=== PATIENT | male | born 1955 | race Caucasian/White ===

== ENCOUNTER 2019-05-27 15:01 | Inpatient (IN) | payer MEDICARE, MEDICAID ==
[~2019-05-27] VITALS: Ht 182.9 cm; Wt 113.2 kg
[2019-05-27] MEDS ORDERED: ASPIRIN 81 MG TAB.CHEW PO ONE (15:30)
[2019-05-27] MEDS: MORPHINE SULFATE 4 MG/ML DISP.SYRIN. IV/SQ PRN ×3 (15:40→22:16)
[2019-05-27 15:50] LABS: BASO % 1 % (0-3); EOS # 0.1 x10^3/uL (0.0-0.7); EOS % 1 % (0-3); HEMATOCRIT 37.9 % (39.0-53.0); HEMOGLOBIN 12.9 g/dL (13.0-17.5); LYMPH # 0.8 x10^3/uL (1.0-4.8); LYMPH % 13 % (24-48); MEAN CORPUSCULAR HEMOGLOBIN 33 pg (25-35); MEAN CORPUSCULAR HGB CONC 34 g/dL (31-37); MEAN CORPUSCULAR VOLUME 98 fL (79-100); MONO # 0.7 x10^3/uL (0.0-1.1); MONO % 10 % (0-9); NEUT # 4.9 x10^3uL (1.8-7.7); NEUT % 76 % (31-73); PLATELET COUNT 150 x10^3/uL (140-400); RED BLOOD COUNT 3.88 x10^6/uL (4.30-5.70); RED CELL DISTRIBUTION WIDTH 15.9 % (11.5-14.5); WHITE BLOOD COUNT 6.4 x10^3/uL (4.0-11.0)
[2019-05-27 15:51] LABS: CALCIUM 8.9 mg/dL (8.5-10.1); CREATININE 1.4 mg/dL (0.7-1.3); GFR 50.7; POTASSIUM 4.2 mmol/L (3.5-5.1)
--- NOTE | 2019-05-27 15:51 | PHYS DOC ---
Past History Past Medical History: CAD, COPD, Diabetes, Hypertension, Other Additional Past Medical Histor: dermatitis (RADHA SANON Jr., DO) Past Medical History: CHF (AMBER JACOBSON MD) Past Surgical History: Coronary Bypass Surgery, Other Additional Past Surgical Histo: cardiac stents; lower back l4-l5; debrided back; partial thyroidectomy (RADHA SANON Jr., DO) Alcohol Use: None Drug Use: None (RADHA SANON Jr., DO) Adult General Chief Complaint Chief Complaint: COUGH HPI HPI Patient is a 64-year-old male who presents with complaint of chest discomfort along with cough and shortness of breath for the last few days. Patient indicates that pain in his chest is like a pressure and he rates that discomfort at an 8 out of 10. He denies any nausea, vomiting or diaphoresis. Patient does indicate that he also has dyspnea on exertion. He states that nothing is improving his symptoms.[] (RADHA SANON Jr., DO) Review of Systems Review of Systems Constitutional: Denies fever or chills [] Respiratory: Positive cough and shortness of breath [] Cardiovascular: No additional information not addressed in HPI [] GI: Denies abdominal pain, nausea, vomiting or diarrhea [] Integument: Denies rash or skin lesions [] Neurologic: Denies headache, focal weakness or sensory changes [] All other systems were reviewed and found to be within normal limits, except as documented in this note. (RADHA SANON Jr., DO) Current Medications Current Medications Current Medications Medications (Trade) Dose Ordered Sig/Levon Start Time Stop Time Status Last Admin Dose Admin Aspirin (Children'S Aspirin) 324 mg 1X ONCE 05/27/19 15:30 05/27/19 15:32 DC 05/27/19 15:39 324 MG Morphine Sulfate (Morphine 4mg Syringe) 4 mg PRN Q15MIN PRN 05/27/19 15:30 05/28/19 15:29 05/27/19 15:40 4 MG (RADHA SANON Jr., DO) Allergies Allergies Allergies Coded Allergies Type Severity Reaction Last Updated Verified levofloxacin Allergy Unknown Rash 05/27/19 Yes niacin Allergy Unknown 05/27/19 Yes (RADHA SANON Jr., DO) Physical Exam Physical Exam Constitutional: Well developed, well nourished, no acute distress, non-toxic appearance. [] HENT: Normocephalic, atraumatic, bilateral external ears normal, oropharynx moist, no oral exudates, nose normal. [] Eyes: PERRLA, EOMI, conjunctiva normal, no discharge. [] Neck: Normal range of motion, no tenderness, supple, no stridor. [] Cardiovascular: Regular rate and rhythm[] Lungs & Thorax: Fine rhonchi are noted bilaterally to auscultation [] Abdomen: Bowel sounds normal, soft, no tenderness. [] Skin: Warm, dry, no erythema, no rash. [] Extremities: No tenderness, no cyanosis, no clubbing, ROM intact, with 2+ lower extremity edema. [] Neurologic: Alert and oriented X 3, no focal deficits noted. [] (RADHA SANON Jr., DO) Current Patient Data Vital Signs Vital Signs Date Time Temp Pulse Resp B/P (MAP) Pulse Ox O2 Delivery O2 Flow Rate FiO2 05/27/19 15:40 40 98 Room Air 05/27/19 15:15 98.6 124 (RADHA SANON Jr., DO) EKG EKG [] (RADHA SANON Jr., DO) EKG My interpretation EKG shows a sinus tachycardia and 12 4 bpm. Does have some nonspecific inferior lead changes. Occasional multifocal also focal PVCs (AMBER JACOBSON MD) Radiology/Procedures Radiology/Procedures [] Impressions: PROCEDURE: CHEST PA & LATERAL AP and Lateral Views of the Chest 05/27/2019 3:19 PM Indication: Cough, chest pain Comparison: None Findings: There is no focal consolidation or infiltrate identified. Mild cardiomegaly noted. Dual lead pacemaking/icd device from a left subclavian approach. There is no evidence of pneumothorax or pleural effusion. No acute osseous abnormalities are identified. Impression: No evidence of acute cardiopulmonary process. Electronically signed by: Hermes Meneses MD (05/27/2019 3:57 PM) [facility] (RADHA SANON Jr., DO) Course & Med Decision Making Course & Med Decision Making Pertinent Labs and Imaging studies reviewed. (See chart for details) [] (RADHA SANON Jr., DO) Course & Med Decision Making [address] [address] IMAGING REPORT Signed PATIENT: MELISSA DIAZ ACCOUNT: [id number] : 1955 LOCATION: ER AGE: 64 SEX: M EXAM STATUS: REG ER ORD. PHYSICIAN: RADHA SANON Jr., DO REASON: cough and chest pain PROCEDURE: CHEST PA & LATERAL AP and Lateral Views of the Chest 05/27/2019 3:19 PM Indication: Cough, chest pain Comparison: None Findings: There is no focal consolidation or infiltrate identified. Mild cardiomegaly noted. Dual lead pacemaking/icd device from a left subclavian approach. There is no evidence of pneumothorax or pleural effusion. No acute osseous abnormalities are identified. Impression: No evidence of acute cardiopulmonary process. Electronically signed by: Hermes Meneses MD (05/27/2019 3:57 PM) [facility] DICTATED AND SIGNED BY: HERMES MENESES MD DATE: 05/27/19 1557 CC: RADHA SANON Jr., DO; MELISSA HART PAC ~ See Dr. Sanon note for this pt. Request by Nursing need rate control and BP. Repeat EKG shows a sinus rhythm at approximately 24 bpm. Flow limb of old age. Some nonspecific inferior changes. Occasional multifocal PVCs. No findings acute STEMI of contralateral changes overall morphology similar to prior EKG however patient did remove his EKG stickers so there may be some difference and placement of stickers or EKG leads. Will Continue Lasix additional 40 mg and one dosage of Labetalol 10. Repeat Electrolytes and Trop. Impression: 1. Hx. Cough 2. CHF-diastolic dysfunction 3. Anemia 12.9 4. DM Glu. 1387 5. Mild elevation Creat. 1.4 6. BNP 5462 7. Malnutrition Alb. 3/.0 8. Accelerated HTN 9. Tachycardia 10. Multifocal PVCs (AMBER JACOBSON MD) Dragon Disclaimer Dragon Disclaimer This electronic medical record was generated, in whole or in part, using a voice recognition dictation system. (RADHA SANON Jr., DO) Departure Departure: Impression: Primary Impression: Chest pain Additional Impression: CHF (congestive heart failure) Disposition: ADMITTED INPATIENT Admitting Physician: Martin Maldonado (RADHA SANON Jr., DO) Condition: IMPROVED Referrals: MELISSA HART PAC (PCP) Dragon Disclaimer This chart was dictated in whole or in part using Voice Recognition software in a busy, high-work load, and often noisy Emergency Department environment. It may contain unintended and wholly unrecognized errors or omissions. (AMBER JACOBSON MD) Problem Qualifiers Primary Impression: Chest pain Chest pain type: unspecified Qualified Codes: R07.9 - Chest pain, unspecified Additional Impression: CHF (congestive heart failure) Heart failure type: unspecified Heart failure chronicity: unspecified Qualified Codes: I50.9 - Heart failure, unspecified RADHA SANON Jr. DO May 27, 2019 15:51 AMBER JACOBSON MD May 27, 2019 23:59
--- NOTE | 2019-05-27 16:00 | RAD ---
AP and Lateral Views of the Chest 05/27/2019 3:19 PM Indication: Cough, chest pain Comparison: None Findings: There is no focal consolidation or infiltrate identified. Mild cardiomegaly noted. Dual lead pacemaking/icd device from a left subclavian approach. There is no evidence of pneumothorax or pleural effusion. No acute osseous abnormalities are identified. Impression: No evidence of acute cardiopulmonary process. Electronically signed by: Hermes Gaona MD (05/27/2019 3:57 PM) [facility]
[2019-05-27 16:03] LABS: ALBUMIN/GLOBULIN RATIO 0.8 (1.0-1.7); TOTAL BILIRUBIN 0.5 mg/dL (0.2-1.0); TOTAL PROTEIN 6.9 g/dL (6.4-8.2)
[2019-05-27] MEDS ORDERED: FUROSEMIDE 40 MG/4 ML VIAL IVP ONE (16:15)
[2019-05-27] MEDS ORDERED: ONDANSETRON PF 4 MG/2 ML VIAL. IV PRN (17:45)
[2019-05-27] MEDS: MORPHINE SULFATE 4 MG/ML DISP.SYRIN. IV PRN (18:05)
[2019-05-28] MEDS ORDERED: FUROSEMIDE 40 MG/4 ML VIAL IVP ONE (00:30)
[2019-05-28] MEDS ORDERED: LABETALOL 20 MG/4 ML DISP.SYRIN. IVP ONE (00:30)
[2019-05-28 00:38] LABS: CALCIUM 7.2 mg/dL (8.5-10.1); CREATININE 1.2 mg/dL (0.7-1.3); GFR 60.6; POTASSIUM 3.1 mmol/L (3.5-5.1)
[2019-05-28 01:28] VITALS: BP 130/80
[2019-05-28] MEDS ORDERED: RANO10002 PO (03:18)
[2019-05-28] MEDS ORDERED: DABI150C PO (03:18)
[2019-05-28] MEDS ORDERED: EMPA10TA PO (03:18)
[2019-05-28] MEDS ORDERED: BUME1TAB3 PO (03:18)
[2019-05-28] MEDS ORDERED: MONT10TA80 PO (03:18)
[2019-05-28] MEDS ORDERED: AMIO200T4 PO (03:18)
[2019-05-28] MEDS ORDERED: LEVO300T2 PO (03:18)
[2019-05-28] MEDS ORDERED: INSU100I13 SQ (03:18)
[2019-05-28] MEDS ORDERED: BUME2TAB3 PO (03:18)
[2019-05-28] MEDS ORDERED: FLUT1BLS3 IH (03:18)
[2019-05-28] MEDS ORDERED: CLOP75TA57 PO (03:18)
[2019-05-28] MEDS ORDERED: ALBU0.63 NEB (03:18)
[2019-05-28] MEDS ORDERED: RANI-376 PO (03:18)
[2019-05-28] MEDS ORDERED: FERR325T14 PO (03:18)
[2019-05-28] MEDS ORDERED: ESCITALOPRAM OX10 MG PO (03:18)
[2019-05-28] MEDS ORDERED: CARV12.5 PO (03:18)
[2019-05-28] MEDS ORDERED: LIPITOR80 MG PO (03:18)
[2019-05-28] MEDS ORDERED: PANT40TA3 PO (03:18)
[2019-05-28] MEDS ORDERED: CYAN500T17 PO (03:18)
[2019-05-28] MEDS ORDERED: INSU100C SQ (03:18)
[2019-05-28] MEDS ORDERED: OXYC5CAP PO (03:18)
[2019-05-28] MEDS ORDERED: HYDR4TAB45 PO (03:18)
[2019-05-28] MEDS ORDERED: ISOS60TA2 PO (03:18)
--- NOTE | 2019-05-28 03:36 | NUR ---
PT presented with a cough and SOB for 3 days, chest pain/pressure for 2 days. PT admitted for CHF. PT oriented to unit. PT safely transported to unit via EMS, transferred to bed safely. Reviewed PT's PMH, PSH, FH, SH and medications ( called in while assessing PT and informed narrative writer of current medications/doses).
[2019-05-28] MEDS: MORPHINE SULFATE 4 MG/ML DISP.SYRIN. IV PRN ×2 (03:51→14:36)
--- NOTE | 2019-05-28 04:31 | NUR ---
PT expressed his wish to be DNR status. Second nurse verified (Stefani Stein, RN). While speaking with about medications, verified DNR status. She said she would bring in the paperwork in AM.
[2019-05-28 05:43] VITALS: BP 109/72
--- NOTE | 2019-05-28 05:46 | EKG ---
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
--- NOTE | 2019-05-28 05:54 | EKG ---
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
[2019-05-28 07:15] LABS: BASO % 1 % (0-3); EOS % 1 % (0-3); HEMATOCRIT 36.9 % (39.0-53.0); HEMOGLOBIN 12.4 g/dL (13.0-17.5); LYMPH # 1.1 x10^3/uL (1.0-4.8); LYMPH % 19 % (24-48); MEAN CORPUSCULAR HEMOGLOBIN 33 pg (25-35); MEAN CORPUSCULAR HGB CONC 34 g/dL (31-37); MEAN CORPUSCULAR VOLUME 97 fL (79-100); MONO # 0.6 x10^3/uL (0.0-1.1); MONO % 10 % (0-9); NEUT % 69 % (31-73); PLATELET COUNT 142 x10^3/uL (140-400); RED BLOOD COUNT 3.79 x10^6/uL (4.30-5.70); RED CELL DISTRIBUTION WIDTH 15.9 % (11.5-14.5); WHITE BLOOD COUNT 5.7 x10^3/uL (4.0-11.0)
[2019-05-28 07:31] LABS: CALCIUM 8.4 mg/dL (8.5-10.1); CREATININE 1.5 mg/dL (0.7-1.3); GFR 46.8; POTASSIUM 3.6 mmol/L (3.5-5.1)
[2019-05-28] MEDS ORDERED: NON FORMULARY ITEM (Albuterol Sulfate (Albuterol Sulfate Neb Soln) 1 VIAL) NEB PRN (07:45)
[2019-05-28] MEDS ORDERED: ALBUTEROL SULFATE 2.5 MG/3 ML NEBU. NEB PRN (08:45)
[2019-05-28] MEDS: CYANOCOBALAMIN (VITAMIN B-12) 1,000 MCG TABLET. PO SCH (09:00)
[2019-05-28] MEDS: RANOLAZINE 500 MG TAB.ER.12H PO SCH ×2 (09:00→20:25)
[2019-05-28] MEDS: FERROUS SULFATE 325 MG TABLET. PO SCH (09:00)
[2019-05-28] MEDS: NON FORMULARY ITEM (Empagliflozin (Jardiance) 10 MG) PO SCH (09:00)
[2019-05-28] MEDS: FAMOTIDINE 20 MG TABLET PO SCH (09:01)
[2019-05-28] MEDS: PANTOPRAZOLE 40 MG TABLET. PO SCH (09:01)
[2019-05-28] MEDS: ISOSORBIDE MONONITRATE ER 30 MG TAB.ER.24H PO SCH (09:01)
[2019-05-28] MEDS: BUMETANIDE 1 MG TABLET PO SCH ×2 (09:01→12:22)
[2019-05-28] MEDS: CARVEDILOL 12.5 MG TABLET PO SCH ×2 (09:02→17:20)
[2019-05-28] MEDS: CLOPIDOGREL BISULFATE 75 MG TABLET PO SCH (09:02)
[2019-05-28] MEDS: CITALOPRAM 20 MG TABLET. PO SCH (09:02)
[2019-05-28] MEDS: DABIGATRAN ETEXILATE 150 MG CAPSULE. PO SCH ×2 (09:03→20:25)
[2019-05-28] MEDS: AMIODARONE HCL 200 MG TABLET PO SCH (09:03)
[2019-05-28] MEDS: oxyCODONE IR 5 MG TABLET PO SCH ×2 (09:03→20:26)
[2019-05-28 10:52] LABS: INFLUENZA A PATIENT NEGATIVE (NEGATIVE); INFLUENZA B PATIENT NEGATIVE (NEGATIVE)
[2019-05-28 11:09] VITALS: BP 100/65
[2019-05-28] MEDS: INSULIN LISPRO 300 UNITS/3 ML VIAL. SQ SCH ×2 (12:24→17:23)
[2019-05-28 15:39] VITALS: BP 101/66
[2019-05-28] MEDS ORDERED: ACETAMINOPHEN 325 MG TABLET PO PRN (17:45)
--- NOTE | 2019-05-28 18:19 | PDOC2 ---
CARDIAC CONSULT DATE OF CONSULT Date Of Consult DATE: 05/28/19 TIME: 18:12 REASON FOR CONSULT Reason for Consult Heart failure, chest pain REFERRING PHYSICIAN Referring Physician Dr. Maldonado SOURCE Source: Chart review, Patient HPI History of Present Illness The patient is a 64-year-old male who is admitted through the emergency room with 3-4 days of increasing shortness of breath, cough and chest pressure. He was treated with diuresis and is mildly improved. Initial troponin was normal at 0.017. Creatinine of 1.5. EKG showed a sinus tachycardia with no acute ST segment changes. Chest x-ray showed no acute changes. Patient blood pressure is still elevated but has improved. The patient reports a long history of multiple cardiac issues including a previous bypass surgery and subsequent stenting, an ICD, hypertension and diabetes mellitus. He is from the [facility] and reports several prolonged hospitalizations there in the last 1-2 years. In his room today he as noted above is feeling better. Reports some shortness of breath. He reports some mild chest pressure. PAST MEDICAL HISTORY Cardiovascular: CAD, CHF, HTN, hyperipidemia Pulmonary: COPD GI: GERD Endocrine: Diabetes PAST SURGICAL HISTORY Past Surgical History: CABG, Other (multiple coronary stents and an ICD.) FAMILY HISTORY Family History: Heart Disease SOCIAL HISTORY Smoke: No ALCOHOL: none CURRENT MEDICATIONS Current Medications Current Medications Aspirin (Children'S Aspirin) 324 mg 1X ONCE PO Last administered on 05/27/19at 15:39; Start 05/27/19 at 15:30; Stop 05/27/19 at 15:32; Status DC Morphine Sulfate (Morphine 4mg Syringe) 4 mg PRN Q15MIN PRN IV/SQ PAIN GREATER THAN 3/10 Last administered on 05/27/19at 22:16; Start 05/27/19 at 15:30; Stop 05/28/19 at 14:47; Status DC Furosemide (Lasix) 60 mg 1X ONCE IVP Last administered on 05/27/19at 16:26; Start 05/27/19 at 16:15; Stop 05/27/19 at 16:16; Status DC Ondansetron HCl (Zofran) 4 mg PRN Q4HRS PRN IV NAUSEA/VOMITING Last administered on 05/28/19at 09:04; Start 05/27/19 at 17:45; Stop 05/28/19 at 17:44; Status DC Morphine Sulfate (Morphine 4mg Syringe) 4 mg PRN Q2HR PRN IV PAIN Last administered on 05/28/19at 14:36; Start 05/27/19 at 17:45; Stop 05/28/19 at 17:44; Status DC Furosemide (Lasix) 40 mg 1X ONCE IVP ; Start 05/28/19 at 00:30; Stop 05/28/19 at 00:31; Status DC Labetalol HCl (Normodyne) 10 mg 1X ONCE IVP ; Start 05/28/19 at 00:30; Stop 05/28/19 at 00:31; Status DC Amiodarone HCl (Cordarone) 200 mg DAILY PO Last administered on 05/28/19at 09:03; Start 05/28/19 at 09:00 Clopidogrel Bisulfate (Plavix) 75 mg DAILY PO Last administered on 05/28/19at 09:02; Start 05/28/19 at 09:00 Dabigatran (Pradaxa) 150 mg BID PO Last administered on 05/28/19at 09:03; Start 05/28/19 at 09:00 Ferrous Sulfate (Feosol) 325 mg DAILY PO Last administered on 05/28/19at 09:00; Start 05/28/19 at 09:00 Non-Formulary Medication (Albuterol Sulfate (Albuterol Sulfate Neb Soln)) 1 vial QID PRN NEB SHORTNESS OF BREATH; Start 05/28/19 at 07:45; Status UNV Atorvastatin Calcium (Lipitor) 80 mg QHS PO ; Start 05/28/19 at 21:00 Ranolazine (Ranexa) 1,000 mg BID PO Last administered on 05/28/19at 09:00; Start 05/28/19 at 09:00 Bumetanide (Bumex) 1 mg NOON PO Last administered on 05/28/19at 12:22; Start 05/28/19 at 12:00 Carvedilol (Coreg) 12.5 mg BIDWMEALS PO Last administered on 05/28/19at 17:20; Start 05/28/19 at 08:30 Montelukast Sodium (Singulair) 10 mg HS PO ; Start 05/28/19 at 21:00 Pantoprazole Sodium (Protonix) 40 mg DAILY PO Last administered on 05/28/19at 09:01; Start 05/28/19 at 09:00 Bumetanide (Bumex) 2 mg DAILY PO Last administered on 05/28/19at 09:01; Start 05/28/19 at 09:00 Cyanocobalamin (Vitamin B-12) 2,500 mcg DAILY PO Last administered on 05/28/19at 09:00; Start 05/28/19 at 09:00 Non-Formulary Medication (Empagliflozin (Jardiance)) 10 mg DAILY PO ; Start 05/28/19 at 09:00; Status UNV Citalopram Hydrobromide (CeleXA) 20 mg DAILY PO Last administered on 05/28/19at 09:02; Start 05/28/19 at 09:00 Hydromorphone HCl (Dilaudid) 4 mg PRN QID PRN PO PAIN; Start 05/28/19 at 08:45 Insulin Glargine (Lantus Syringe) 14 unit QHS SQ ; Start 05/28/19 at 21:00 Insulin Human Lispro (HumaLOG) 3 units TIDWMEALS SQ Last administered on 05/28/19at 17:23; Start 05/28/19 at 12:00 Isosorbide Mononitrate (Imdur) 60 mg DAILY PO Last administered on 05/28/19at 09:01; Start 05/28/19 at 09:00 Levothyroxine Sodium (Synthroid) 300 mcg DAILY06 PO ; Start 05/29/19 at 06:00 Oxycodone HCl (Roxicodone) 5 mg BID PO Last administered on 05/28/19at 09:03; Start 05/28/19 at 09:00 Famotidine (Pepcid) 40 mg DAILY PO Last administered on 05/28/19at 09:01; Start 05/28/19 at 09:00 Albuterol Sulfate (Ventolin) 2.5 mg PRN QID PRN NEB SHORTNESS OF BREATH; Start 05/28/19 at 08:45 Acetaminophen (Tylenol) 650 mg PRN TID PRN PO PAIN / TEMP Last administered on 05/28/19at 17:51; Start 05/28/19 at 17:45 Active Scripts Active Reported Dilaudid (Hydromorphone Hcl) 4 Mg Tablet 1 Tab PO PRN QID PRN MDD 4 Tablet(s) 30 Days Ranexa (Ranolazine) 1,000 Mg Tab.er.12h 1 Tab PO BID 30 Days Jardiance (Empagliflozin) 10 Mg Tablet 10 Mg PO DAILY Lantus Solostar (Insulin Glargine,Hum.rec.anlog) 100 Unit/1 Ml Insuln.pen 14 Unit SQ QHS Humalog (Insulin Lispro) 100 Unit/1 Ml Cartridge 3 Unit SQ TIDWMEALS Albuterol Sulfate Neb Soln (Albuterol Sulfate) 0.63 Mg/3 Ml Vial.neb 1 Vial NEB QID PRN Trelegy Ellipta 100-62.5-25 (Fluticasone/Umeclidin/Vilanter) 1 Each Blst.w.dev 1 Each IH DAILY B-12 (Cyanocobalamin (Vitamin B-12)) 500 Mcg Tablet 5 Tab PO DAILY 30 Days Synthroid (Levothyroxine Sodium) 300 Mcg Tablet 300 Mcg PO DAILY06 Escitalopram Oxalate 10 Mg Tablet 1 Tab PO DAILY Ferrous Sulfate 325 Mg Tablet 1 Tab PO DAILY Zantac (Ranitidine Hcl) 150 Mg Tablet 300 Mg PO DAILY Oxycodone Hcl 5 Mg Capsule 5 Mg PO BID Isosorbide Mononitrate Er (Isosorbide Mononitrate) 60 Mg Tab.er.24h 1 Tab PO DAILY Coreg (Carvedilol) 12.5 Mg Tablet 12.5 Mg PO BIDWMEALS Pradaxa (Dabigatran Etexilate Mesylate) 150 Mg Capsule 1 Cap PO BID Lipitor (Atorvastatin Calcium) 80 Mg Tablet 80 Mg PO QHS Amiodarone Hcl 200 Mg Tablet 1 Tab PO DAILY Montelukast Sodium Tablet (Montelukast Sodium) 10 Mg Tablet 10 Mg PO HS Plavix (Clopidogrel Bisulfate) 75 Mg Tablet 1 Tab PO DAILY 30 Days Bumetanide 2 Mg Tablet 1 Tab PO DAILY Bumetanide 1 Mg Tablet 1 Mg PO NOON Protonix (Pantoprazole Sodium) 40 Mg Tablet.dr 1 Tab PO DAILY ALLERGIES Allergies: Coded Allergies: levofloxacin (Verified Allergy, Unknown, Rash, 05/27/19) niacin (Verified Allergy, Unknown, 05/27/19) ROS General: YES: Fatigue Respiratory: YES: Shortness of breath, SOB with excertion Cardiovascular: yes: Chest Pain PHYSICAL EXAM General: mild distress HEENT: Atraumatic Lungs: Other (decreased breath sounds) Abdomen: Normal bowel sounds VITALS Vital Signs Vital Signs Date Time Temp Pulse Resp B/P (MAP) Pulse Ox O2 Delivery O2 Flow Rate FiO2 05/28/19 17:20 118 101/66 05/28/19 15:39 98.4 20 92 Room Air LABS LABS Laboratory Tests Test 05/27/19 15:30 05/27/19 23:49 05/28/19 06:35 05/28/19 07:46 White Blood Count 6.4 x10^3/uL (4.0-11.0) 5.7 x10^3/uL (4.0-11.0) Red Blood Count 3.88 x10^6/uL (4.30-5.70) 3.79 x10^6/uL (4.30-5.70) Hemoglobin 12.9 g/dL (13.0-17.5) 12.4 g/dL (13.0-17.5) Hematocrit 37.9 % (39.0-53.0) 36.9 % (39.0-53.0) Mean Corpuscular Volume 98 fL (79-100) 97 fL (79-100) Mean Corpuscular Hemoglobin 33 pg (25-35) 33 pg (25-35) Mean Corpuscular Hemoglobin Concent 34 g/dL (31-37) 34 g/dL (31-37) Red Cell Distribution Width 15.9 % (11.5-14.5) 15.9 % (11.5-14.5) Platelet Count 150 x10^3/uL (140-400) 142 x10^3/uL (140-400) Neutrophils (%) (Auto) 76 % (31-73) 69 % (31-73) Lymphocytes (%) (Auto) 13 % (24-48) 19 % (24-48) Monocytes (%) (Auto) 10 % (0-9) 10 % (0-9) Eosinophils (%) (Auto) 1 % (0-3) 1 % (0-3) Basophils (%) (Auto) 1 % (0-3) 1 % (0-3) Neutrophils # (Auto) 4.9 x10^3uL (1.8-7.7) 4.0 x10^3uL (1.8-7.7) Lymphocytes # (Auto) 0.8 x10^3/uL (1.0-4.8) 1.1 x10^3/uL (1.0-4.8) Monocytes # (Auto) 0.7 x10^3/uL (0.0-1.1) 0.6 x10^3/uL (0.0-1.1) Eosinophils # (Auto) 0.1 x10^3/uL (0.0-0.7) 0.0 x10^3/uL (0.0-0.7) Basophils # (Auto) 0.0 x10^3/uL (0.0-0.2) 0.0 x10^3/uL (0.0-0.2) Sodium Level 140 mmol/L (136-145) 144 mmol/L (136-145) 138 mmol/L (136-145) Potassium Level 4.2 mmol/L (3.5-5.1) 3.1 mmol/L (3.5-5.1) 3.6 mmol/L (3.5-5.1) Chloride Level 106 mmol/L (98-107) 111 mmol/L (98-107) 104 mmol/L (98-107) Carbon Dioxide Level 26 mmol/L (21-32) 22 mmol/L (21-32) 26 mmol/L (21-32) Anion Gap 8 (6-14) 11 (6-14) 8 (6-14) Blood Urea Nitrogen 18 mg/dL (8-26) 17 mg/dL (8-26) 18 mg/dL (8-26) Creatinine 1.4 mg/dL (0.7-1.3) 1.2 mg/dL (0.7-1.3) 1.5 mg/dL (0.7-1.3) Estimated GFR (Cockcroft-Gault) 50.7 60.6 46.8 BUN/Creatinine Ratio 13 (6-20) Glucose Level 137 mg/dL (70-99) 71 mg/dL (70-99) 88 mg/dL (70-99) Lactic Acid Level 1.0 mmol/L (0.4-2.0) Calcium Level 8.9 mg/dL (8.5-10.1) 7.2 mg/dL (8.5-10.1) 8.4 mg/dL (8.5-10.1) Magnesium Level 2.0 mg/dL (1.8-2.4) Total Bilirubin 0.5 mg/dL (0.2-1.0) Aspartate Amino Transf (AST/SGOT) 21 U/L (15-37) Alanine Aminotransferase (ALT/SGPT) 22 U/L (16-63) Alkaline Phosphatase 143 U/L (46-116) Troponin I Quantitative < 0.017 ng/mL (0-0.055) < 0.017 ng/mL (0-0.055) ER-Ebi-K-Type Natriuretic Peptide 5462 pg/mL (0-124) Total Protein 6.9 g/dL (6.4-8.2) Albumin 3.0 g/dL (3.4-5.0) Albumin/Globulin Ratio 0.8 (1.0-1.7) Lipase 127 U/L (73-393) Glucose (Fingerstick) 86 mg/dL (70-99) Test 05/28/19 10:20 Influenza Type A (Rapid) Negative (NEGATIVE) Influenza Type B (Rapid) Negative (NEGATIVE) IMAGES IMAGES Chest x-ray shows no acute changes. EKG EKG EKG shows a sinus tachycardia and no acute ischemic changes. HEART CATH Heart Cath 1. Acute on chronic heart failure. Probable systolic. We'll continue to diuresis with monitoring the patient's lab. We'll check an echocardiogram. We'll also attempt to obtain old records. 2. History of bypass surgery and multiple stenting. As noted above no acute ischemic EKG changes or elevated troponins. We'll continue baseline medications. 3. Reported AICD. 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 Patient has had no severe arrhythmias since admission. 4. Acute exacerbation of COPD. Continue pulmonary treatments. 5. Hypertension. We'll monitor and adjust medications as needed. 6. Uncertain lipid levels. We'll check a panel. 7. Diabetes mellitus. As per the primary service. Thank you for allowing us to participate in the care of your patient. DAY NEAL MD May 28, 2019 18:18
--- NOTE | 2019-05-28 18:42 | HP ---
ADMIT DATE: 05/28/2019 HISTORY OF PRESENT ILLNESS: The patient is a 64-year-old male patient who came to the Emergency Room complaining of shortness of breath, chest tightness, chest pressure, cough, wheezing, has been going on for the last 3 days. He also complained of shortness of breath. Denied any chest pain, denied any chills, rigors, or fever. Denied any orthopnea or paroxysmal nocturnal dyspnea. The cough is productive of clear sputum. He rated his discomfort as an 8/10. He denies any nausea, vomiting or diaphoresis. He also indicated that his dyspnea is aggravated by exertion. He apparently has inhalers at home, but he said that he does not use them as he should and unfortunately continued to smoke. He was extensively evaluated in the Emergency Room, and his white cell count was found to be normal. His chemistry showed that he has chronic kidney disease. Has also elevated beta natriuretic peptide at 5462. His influenza A and B were negative. His chest x-ray showed that there is no focal consolidation or infiltrate identified, mild cardiomegaly noted. He has dual lead pacemaker ICD device from a left subclavian approach. There is no evidence of pneumothorax, pleural effusion, no acute osseous abnormalities identified. First set of cardiac enzymes showed troponin to be less than 0.07. He was admitted to do 2 more sets of cardiac enzyme and was treated with Lasix and we will obviously consult the cardiology team, do 2 more sets of cardiac enzyme and check his fasting lipid profile. PAST MEDICAL HISTORY: Significant for type 2 diabetes mellitus, longstanding hypertension, hyperlipidemia, coronary artery disease, status myocardial disease, status post myocardial infarction in 2007, he underwent percutaneous coronary intervention with stent deployment x9. He has coronary artery bypass graft surgery. He had had cardiac arrest x 2. He apparently had left upper extremity compartment syndrome that required fasciotomy. Has a lung nodule that is followed closely, has had acute kidney injury twice, once with the compartment syndrome when he was in [place] and 2 months ago he was treated with IV fluid for acute kidney injury. Has benign prostatic hypertrophy by symptoms, TIA, chronic obstructive pulmonary disease, obstructive sleep apnea, on 2 liters of oxygen by nasal cannula. PAST SURGICAL HISTORY: Significant for PCI x 9, coronary artery bypass graft surgery, fasciotomy, L4-L5 laminectomy, he has also partial thyroidectomy. ALLERGIES: HE IS ALLERGIC TO LEVOFLOXACIN AND NIACIN. MEDICATIONS: He is currently on following medications: He is on albuterol sulfate 0.63 mg per 3 mL by nebulizer 4 times a day, ferrous sulfate 325 mg once a day, Pradaxa 150 mg twice a day, Plavix 75 mg once a day, amiodarone 200 mg once a day, Ranexa 1000 mg twice a day, atorvastatin calcium 80 mg at bedtime. He is on isosorbide mononitrate 60 mg daily, carvedilol 12.5 mg twice a day with meals, hydromorphone 4 mg 4 times a day as needed for pain. He is also on oxycodone 5 mg twice a day, escitalopram oxalate 10 mg daily, bumetanide 1 mg p.o. at noontime, bumetanide 2 mg daily. He is on Trelegy Ellipta 100/6.25/25 inhalers daily, montelukast sodium 10 mg at bedtime, ranitidine 150 mg daily, Protonix 40 mg daily. He is on Lantus insulin 14 units at bedtime and Humalog 3 units before meals. He is on Jardiance 10 mg daily, levothyroxine sodium 300 mcg once a day, and cyanocobalamin 500 mcg, he takes 5 tablets p.o. daily. FAMILY HISTORY: He has one sister who has coronary artery disease. His father in his 60s and mother also in her 60s due to congestive heart failure. SOCIAL HISTORY: He is , has 2 daughters alive, has one daughter when she was 4 months old, one son because of congenital heart disease at the age of 10 years and 1 son was electrocuted. He continue to smoke, does not drink alcohol drugs. 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 REVIEW OF SYSTEMS: The patient denied any blurring of vision, cataract, glaucoma or macular degeneration. Denied any earache, tinnitus or sensorineural deafness. Denied any nosebleeds, stuffy nose or postnasal drip. Denied any sore throat, sore tongue, toothache, hoarseness of voice or difficulty swallowing. Denied any dysuria, frequency or hematuria. Did complain of chest pressure, but denied any orthopnea or paroxysmal nocturnal dyspnea. Denied any chills, rigors or fever. Denied any dizziness, lightheadedness, or vertigo. PHYSICAL EXAMINATION: GENERAL: On arrival to the Emergency Room, he was clearly tachypneic, but there was no pallor, jaundice or cyanosis. No lymphadenopathy, no thyromegaly. No jugular venous distention. No limb edema. VITAL SIGNS: His heart rate on arrival was 124, respiratory rate was 40, blood pressure 140/86, temperature was 98.6, respiratory rate was 40 and oxygen saturation was 99% on room air. HEAD, EYES, EARS, NOSE AND THROAT: Showed normocephalic, atraumatic. NECK: Supple. HEART: Showed normal first and second heart sounds. No gallop or murmur. CHEST: Clear to auscultation. No crepitation or rhonchi. ABDOMEN: Distended, soft, nontender. No guarding or rigidity. No organomegaly. All hernial orifice intact. Bowel sounds normal. NEUROLOGIC: He was awake, alert, responding appropriately. All cranial nerves intact. EXTREMITIES: He moves extremities without difficulty, ambulates without assistance or assistive devices. LABORATORY DATA: His lab work on admission showed a white cell count 6400, hemoglobin 12.9, hematocrit 38, MCV 98 and platelet count of 150,000. His chemistry showed a serum sodium 140, potassium 4.2, chloride 106, bicarbonate 26, anion gap of 8, BUN 18, creatinine 1.4, estimated GFR was 50 mL per minute, his glucose 137, calcium was 8.9, magnesium 2. Total bilirubin, AST, ALT were normal. Alkaline phosphatase was elevated. His beta natriuretic peptide was 5462. Total protein was 6.9, albumin 3. Lipase was 127. His first set of cardiac enzymes showed troponin to be less than 0.017. His chest x-ray showed that there is no focal consolidation or infiltrate identified, mild cardiomegaly noted. Dual lead pacemaker, ICD device from left subclavian approach. There is no evidence of pneumothorax, pleural effusion, no acute osseous abnormality identified. ASSESSMENT AND PLAN: In summary, this is a 64-year-old with very complicated medical history, who has apparently coronary artery disease, with myocardial infarction. He has multiple stents, a total of 9, had open heart surgery, has had before 2 episodes of cardiac arrest for which he has now AICD. He seemed to be more in dealing with [id number] perhaps systolic congestive heart failure. He did receive one Lasix in the Emergency Room and was continued on his Bumex 2 mg in the morning and 1 afternoon. I have reconciled all his medication. We will do 1 more set of cardiac enzyme and he probably needs an echocardiogram to evaluate his left ventricular systolic function and we have already consulted the cardiology team to assist in his management. PAULINO MOHAN MD DR: CODY/leslee JOB#: [id number] / [id number]
[2019-05-28 19:43] VITALS: BP 100/60
[2019-05-28] MEDS: MONTELUKAST 10 MG TABLET. PO SCH (20:25)
[2019-05-28] MEDS: ATORVASTATIN CALCIUM 20 MG TABLET PO SCH (20:25)
[2019-05-28] MEDS: INSULIN GLARGINE SYRINGE. SQ SCH (20:26)
[2019-05-28] MEDS: HYDROmorphone 2 MG TABLET PO PRN (21:33)
[2019-05-28 22:47] VITALS: BP 99/66
--- NOTE | 2019-05-28 23:17 | PN ---
DATE: SUBJECTIVE: The patient is resting, almost flat in bed, in no apparent distress. His chest pressure is much less today. Continue to have cough with whitish sputum. Denied any orthopnea or paroxysmal nocturnal dyspnea. PHYSICAL EXAMINATION: GENERAL: When I examined him this afternoon, he was resting, flat in bed, in no apparent respiratory distress. No pallor, jaundice, cyanosis or thyromegaly. No jugular venous distention. No limb edema. VITAL SIGNS: His heart rate was 118, blood pressure was 101/66, temperature was 98.4, respiratory rate 20 and oxygen saturation was 92%. HEAD, EYES, EARS, NOSE AND THROAT: Normocephalic, atraumatic. NECK: Supple. HEART: Showed normal first and second heart sounds. No gallop or murmur. CHEST: Clear to auscultation. No crepitation or rhonchi. ABDOMEN: Distended, soft, nontender. NEUROLOGIC: He was awake, alert, responding appropriately. All cranial nerves are intact. He moves extremities without difficulty, ambulates without assistance or assistive devices. His intake was 440, output was 425. LABORATORY DATA: Her lab work this morning showed a serum sodium to be 138, potassium 3.6, chloride 104, bicarbonate 26, anion gap of 8, BUN 18, creatinine 1.5, estimated GFR was 46 mL per minute, his glucose was 88, calcium was 8.4. His white cell count was 5700, hemoglobin 12.4, hematocrit 36, MCV 97 and platelet count of 142,000. ASSESSMENT: The patient presenting with what seemed to be acute on chronic systolic congestive heart failure. He continued to have sinus tachycardia. He has a huge amount of Synthroid 300 mcg. He has so far, 2 sets of cardiac enzymes that are ruled out myocardial infarction. PLAN: My plan is to repeat all his labs tomorrow. Continue with all his medication as is and we have already consulted the Cardiology. I will arrange for him to have an echocardiogram also. He is already on Pradaxa for DVT prophylaxis. PAULINO MOHAN MD DR: CODY/leslee JOB#: [id number] / [id number]
[2019-05-29 05:07] VITALS: BP 120/76
[2019-05-29] MEDS: LEVOTHYROXINE 150 MCG TABLET PO SCH (05:09)
[2019-05-29 07:34] LABS: CALCIUM 8.9 mg/dL (8.5-10.1); GFR 33.6; POTASSIUM 3.9 mmol/L (3.5-5.1)
--- NOTE | 2019-05-29 07:58 | PDOC ---
LATA PACKER ENGINEER FIRST ASSISTANT 05/29/19 0758: CARDIO Progress Notes Date & Time Date of Service DATE: 05/29/19 TIME: 07:53 Time of Evaluation 07:53 Subjective Notes Feeling much better today. NO chest pain, palpitations, dizziness, diaphoresis, or nausea/vomiting Has productive cough Vitals Vitals Vital Signs Date Time Temp Pulse Resp B/P (MAP) Pulse Ox O2 Delivery O2 Flow Rate FiO2 05/29/19 05:07 97.5 105 18 120/76 (91) 96 Room Air Weight Weight [ ] Input and Output I.O. Intake and Output 05/29/19 06:59 Intake Total 1700 ml Balance 1700 ml Intake Oral 1700 ml Laboratory Labs Laboratory Tests Test 05/27/19 15:30 05/27/19 23:49 05/28/19 06:35 05/28/19 07:46 White Blood Count 6.4 x10^3/uL (4.0-11.0) 5.7 x10^3/uL (4.0-11.0) Red Blood Count 3.88 x10^6/uL (4.30-5.70) 3.79 x10^6/uL (4.30-5.70) Hemoglobin 12.9 g/dL (13.0-17.5) 12.4 g/dL (13.0-17.5) Hematocrit 37.9 % (39.0-53.0) 36.9 % (39.0-53.0) Mean Corpuscular Volume 98 fL (79-100) 97 fL (79-100) Mean Corpuscular Hemoglobin 33 pg (25-35) 33 pg (25-35) Mean Corpuscular Hemoglobin Concent 34 g/dL (31-37) 34 g/dL (31-37) Red Cell Distribution Width 15.9 % (11.5-14.5) 15.9 % (11.5-14.5) Platelet Count 150 x10^3/uL (140-400) 142 x10^3/uL (140-400) Neutrophils (%) (Auto) 76 % (31-73) 69 % (31-73) Lymphocytes (%) (Auto) 13 % (24-48) 19 % (24-48) Monocytes (%) (Auto) 10 % (0-9) 10 % (0-9) Eosinophils (%) (Auto) 1 % (0-3) 1 % (0-3) Basophils (%) (Auto) 1 % (0-3) 1 % (0-3) Neutrophils # (Auto) 4.9 x10^3uL (1.8-7.7) 4.0 x10^3uL (1.8-7.7) Lymphocytes # (Auto) 0.8 x10^3/uL (1.0-4.8) 1.1 x10^3/uL (1.0-4.8) Monocytes # (Auto) 0.7 x10^3/uL (0.0-1.1) 0.6 x10^3/uL (0.0-1.1) Eosinophils # (Auto) 0.1 x10^3/uL (0.0-0.7) 0.0 x10^3/uL (0.0-0.7) Basophils # (Auto) 0.0 x10^3/uL (0.0-0.2) 0.0 x10^3/uL (0.0-0.2) Sodium Level 140 mmol/L (136-145) 144 mmol/L (136-145) 138 mmol/L (136-145) Potassium Level 4.2 mmol/L (3.5-5.1) 3.1 mmol/L (3.5-5.1) 3.6 mmol/L (3.5-5.1) Chloride Level 106 mmol/L (98-107) 111 mmol/L (98-107) 104 mmol/L (98-107) Carbon Dioxide Level 26 mmol/L (21-32) 22 mmol/L (21-32) 26 mmol/L (21-32) Anion Gap 8 (6-14) 11 (6-14) 8 (6-14) Blood Urea Nitrogen 18 mg/dL (8-26) 17 mg/dL (8-26) 18 mg/dL (8-26) Creatinine 1.4 mg/dL (0.7-1.3) 1.2 mg/dL (0.7-1.3) 1.5 mg/dL (0.7-1.3) Estimated GFR (Cockcroft-Gault) 50.7 60.6 46.8 BUN/Creatinine Ratio 13 (6-20) Glucose Level 137 mg/dL (70-99) 71 mg/dL (70-99) 88 mg/dL (70-99) Lactic Acid Level 1.0 mmol/L (0.4-2.0) Calcium Level 8.9 mg/dL (8.5-10.1) 7.2 mg/dL (8.5-10.1) 8.4 mg/dL (8.5-10.1) Magnesium Level 2.0 mg/dL (1.8-2.4) Total Bilirubin 0.5 mg/dL (0.2-1.0) Aspartate Amino Transf (AST/SGOT) 21 U/L (15-37) Alanine Aminotransferase (ALT/SGPT) 22 U/L (16-63) Alkaline Phosphatase 143 U/L (46-116) Troponin I Quantitative < 0.017 ng/mL (0-0.055) < 0.017 ng/mL (0-0.055) TF-Vtz-B-Type Natriuretic Peptide 5462 pg/mL (0-124) Total Protein 6.9 g/dL (6.4-8.2) Albumin 3.0 g/dL (3.4-5.0) Albumin/Globulin Ratio 0.8 (1.0-1.7) Lipase 127 U/L (73-393) Glucose (Fingerstick) 86 mg/dL (70-99) Test 05/28/19 10:20 05/28/19 11:41 05/28/19 16:35 05/28/19 19:47 Influenza Type A (Rapid) Negative (NEGATIVE) Influenza Type B (Rapid) Negative (NEGATIVE) Glucose (Fingerstick) 98 mg/dL (70-99) 80 mg/dL (70-99) 83 mg/dL (70-99) Test 05/28/19 22:21 05/29/19 07:08 Glucose (Fingerstick) 132 mg/dL (70-99) Sodium Level 134 mmol/L (136-145) Potassium Level 3.9 mmol/L (3.5-5.1) Chloride Level 101 mmol/L (98-107) Carbon Dioxide Level 24 mmol/L (21-32) Anion Gap 9 (6-14) Blood Urea Nitrogen 30 mg/dL (8-26) Creatinine 2.0 mg/dL (0.7-1.3) Estimated GFR (Cockcroft-Gault) 33.6 Glucose Level 117 mg/dL (70-99) Calcium Level 8.9 mg/dL (8.5-10.1) Troponin I Quantitative < 0.017 ng/mL (0-0.055) Microbiology Micro Microbiology 05/27/19 Blood Culture - Preliminary, Resulted NO GROWTH AFTER 1 DAY... Physical Exams HEENT: Neck Supple W Full Motion Chest: Symmetric Lungs: Other (coarse, wheezy ) Heart: S1S2, RRR (SR/ST ) Abdomen: Soft N/T Extremities: 2+ Dorsalis Pedis, No Edema Neurology: alert, oriented, follow commands Assessment Assessment 1. Dyspnea with AE COPD and mild a/c CHF 2. Acute on chronic probable systolic CHF 3. CAD s/p CABG and subsequent PCI/stents. Cath 04/14 reportedly without intervention 4. ICM s/p AICD 5. Hypertension 6. Hyperlipidemia 7. Diabetes, II 8. PAFIB; maintaining ST. Patient reports his heart rate is chronically elevated 9. JANETTE on CKD 10. Tobaccoism; discussed/encouraged cessation Recommendations Hold Bumex with JANETTE Await echo Interrogate AICD; If HR consistently elevated, consider converting coreg to Toprol Continue Amiodarone for rhythm maintenance Pradaxa for stroke prevention Continue secondary prevention measures Will need to establish care with cardiology here as he recently moved from [place] RAMBO DIAL MD 05/29/191925: CARDIO Progress Notes Plan Plan Patient seen and examined. Agree with above nurse practitioner note. Renal function has decreased. The patient overall feels okay. He is looking for to going home. A creatinine of 2.0 may be his new baseline He is currently on Imdur without hydralazine. If renal function is stable could consider initiation of hydralazine as blood pressure allows for optimization of afterload reduction or if his renal function improves also consider Entresto therapy. Await ICD interrogation. If renal function continues to stay above 2.0 may need to decrease his pradaxa dose to 75mg bid based on GFR. LATA PACKER APRN May 29, 2019 07:58 RAMBO DIAL MD May 29, 2019 19:26
[2019-05-29] MEDS: BUMETANIDE 1 MG TABLET PO SCH ×2 (08:34→11:31)
[2019-05-29] MEDS: ISOSORBIDE MONONITRATE ER 30 MG TAB.ER.24H PO SCH (08:34)
[2019-05-29] MEDS: FAMOTIDINE 20 MG TABLET PO SCH (08:34)
[2019-05-29] MEDS: RANOLAZINE 500 MG TAB.ER.12H PO SCH ×2 (08:34→21:22)
[2019-05-29] MEDS: DABIGATRAN ETEXILATE 150 MG CAPSULE. PO SCH ×2 (08:35→21:22)
[2019-05-29] MEDS: AMIODARONE HCL 200 MG TABLET PO SCH (08:35)
[2019-05-29] MEDS: PANTOPRAZOLE 40 MG TABLET. PO SCH (08:35)
[2019-05-29] MEDS: CYANOCOBALAMIN (VITAMIN B-12) 1,000 MCG TABLET. PO SCH (08:35)
[2019-05-29] MEDS: CITALOPRAM 20 MG TABLET. PO SCH (08:35)
[2019-05-29] MEDS: FERROUS SULFATE 325 MG TABLET. PO SCH (08:35)
[2019-05-29] MEDS: oxyCODONE IR 5 MG TABLET PO SCH ×2 (08:36→21:23)
[2019-05-29] MEDS: CLOPIDOGREL BISULFATE 75 MG TABLET PO SCH (08:36)
[2019-05-29] MEDS: CARVEDILOL 12.5 MG TABLET PO SCH ×2 (08:36→17:14)
[2019-05-29] MEDS: INSULIN LISPRO 300 UNITS/3 ML VIAL. SQ SCH ×3 (08:43→17:17)
[2019-05-29] MEDS: HYDROmorphone 2 MG TABLET PO PRN (08:47)
[2019-05-29] MEDS: NON FORMULARY ITEM (Empagliflozin (Jardiance) 10 MG) PO SCH (09:00)
[2019-05-29 11:10] VITALS: BP 106/67
--- NOTE | 2019-05-29 11:32 | NUR ---
Anyi, [employer] requested to hold 1200 NOON dose of Butamide. Also [employer] requests to have pt's pacemaker integorrated. Pt states he does not know the brand of his pacemaker and instructed nurses to call . Called , states pt's pacemaker brand is [employer], Ventricular paced. Will integorrate as requested per [employer].
[2019-05-29 15:31] VITALS: BP 97/61
--- NOTE | 2019-05-29 16:55 | CARD ---
MR#: [id number] Date of Study: 05/29/2019 Ordering Physician: DAY NEAL, Referring Physician: DAY NEAL, Tech: Yolis Ritter [facility] APPROVED REPORT EXAM: Two-dimensional and M-mode echocardiogram with Doppler and color Doppler. Other Information Quality : Good Technically limited study due to body habitus. INDICATION Cardiomyopathy Congestive Heart Failure ICD/Pacemaker Surgery/Intervention CABG: Date: 2007 2D DIMENSIONS RVDd3.2 (2.9-3.5cm)Left Atrium(2D)4.5 (1.6-4.0cm) IVSd1.8 (0.7-1.1cm)Aortic Root(2D)3.4 (2.0-3.7cm) LVDd5.7 (3.9-5.9cm)LVOT Diameter2.3 (1.8-2.4cm) PWd1.2 (0.7-1.1cm)LVDs4.9 (2.5-4.0cm) FS (%) 13.8 %SV46.4 ml LVEF(%)29.0 (>50%) Aortic Valve AoV Peak Liu.74.4cm/sAoV VTI11.4cm AO Peak GR.2.2mmHgAO Mean GR.1mmHg JUVENAL (VTI)4.40cm2 Tricuspid Valve TR P. [id number] TR Peak Gr.[id number] LEFT VENTRICLE The left ventricle is normal size. There is mild to moderate concentric left ventricular hypertrophy. Left ventricle systolic function is moderately to severely impaired. The Ejection Fraction is 25-30% . There is a severe global hypokinesis of the left ventricle. Septum is akinetic. Tissue Doppler imag ing reveals moderate left ventricular diastolic dysfunction. RIGHT VENTRICLE The right ventricle is normal size. The right ventricular systolic function is normal. There is a pac emaker lead in the right ventricle. ATRIA The left atrium is mildly dilated. The right atrium is mildly dilated. A pacemaker is seen in the rig ht atrium consistent with history. The interatrial septum is intact with no evidence for an atrial se ptal defect or patent foramen ovale as noted on 2-D or Doppler imaging. AORTIC VALVE The aortic valve is mildly thickened but opens well. Doppler and Color Flow revealed no significant a ortic regurgitation. There is no significant aortic valvular stenosis. MITRAL VALVE The mitral valve is calcified but opens well. There is no evidence of mitral valve prolapse. There is no mitral valve stenosis. Doppler and Color-flow revealed trace to mild mitral regurgitation. TRICUSPID VALVE The tricuspid valve is normal in structure and function. Doppler and Color Flow revealed mild tricusp id regurgitation. There is moderate pulmonary hypertension.The PA pressure was estimated at 41 mmHg. There is no tricuspid valve stenosis. PULMONIC VALVE The pulmonic valve is not well visualized. Doppler and Color Flow revealed no pulmonic valvular regur gitation. There is no pulmonic valvular stenosis. GREAT VESSELS The aortic root is normal in size. The ascending aorta is normal in size. Dilated and collapses less than 50% consistent with volume overload. PERICARDIAL EFFUSION There is no evidence of significant pericardial effusion. Critical Notification Critical Value: No <Conclusion> Left ventricle systolic function is moderately to severely impaired. The Ejection Fraction is 25-30%. There is a severe global hypokinesis of the left ventricle. Septum is akinetic. There is a pacemaker lead in the right ventricle. Doppler and Color Flow revealed mild tricuspid regurgitation. There is moderate pulmonary hypertensio n.The PA pressure was estimated at 41 mmHg. Signed by : Maurice Barrett, Electronically Approved : 05/29/2019 16:54:36
[2019-05-29 19:44] VITALS: BP 120/61
[2019-05-29] MEDS: INSULIN GLARGINE SYRINGE. SQ SCH (21:00)
[2019-05-29] MEDS: MONTELUKAST 10 MG TABLET. PO SCH (21:22)
[2019-05-29] MEDS: ATORVASTATIN CALCIUM 20 MG TABLET PO SCH (21:23)
[2019-05-29 22:27] VITALS: BP 104/69
--- NOTE | 2019-05-29 23:03 | PN ---
DATE: SUBJECTIVE: The patient is resting, slightly propped up in bed, in no apparent respiratory distress. He is awake, alert. On questioning him, he stated that he is generally feeling much improved compared to his chest tightness, cough and wheezing has largely subsided. He was seen by the Cardiology team and has had an echocardiogram, the results are still pending at the time of this dictation. He also has a plan to interrogate his AICD and his Bumex was put on hold as his creatinine has risen to 2 mg. PHYSICAL EXAMINATION: GENERAL: When I examined him today, he looked well and was clearly in no apparent respiratory distress. VITAL SIGNS: His heart rate was continued to be persistently high at 100, blood pressure was 97/61, temperature 97.5, respiratory rate 20, and oxygen saturation was 96%. HEAD, EYES, EARS, NOSE AND THROAT: Showed normocephalic, atraumatic. NECK: Supple. HEART: Showed normal first and second heart sounds. No gallop, rub or murmur. CHEST: Shows central trachea, equal bilateral expansion, air entry, very few scattered rhonchi, could not appreciate any crepitation. ABDOMEN: Distended, soft, nontender. NEUROLOGIC: He was awake, alert, responding appropriately. All cranial nerves are intact. He moves extremities without difficulty. His intake over the last 24 hours was 440, output was 425. LABORATORY DATA: As of this morning, his serum sodium was 134, potassium 3.9, chloride 101, bicarbonate 24, anion gap of 9, BUN 30, creatinine was 2. Estimated GFR was 33 and glucose 117, calcium was 8.9. His TSH was normal at 3.735. White cell count was 5.7, hemoglobin 12, hematocrit 36, MCV 97 and platelet count 142,000. His influenza A and B were negative. ASSESSMENT: 1. Acute chronic obstructive pulmonary disease exacerbation. 2. Acute on chronic congestive heart failure. 3. [id number] systolic congestive heart failure, coronary artery disease, status post CABG, subsequent PCI and stent deployment. He has ischemic cardiomyopathy, status post AICD, hypertension, hyperlipidemia, type 2 diabetes, acute kidney injury on chronic kidney disease. PLAN: Currently, his Bumex was put on hold. Arrangement to interrogate his AICD and has had amiodarone to control the heart rate and for treatment of arrhythmias. PAULINO MOHAN MD DR: Mundo JOB#: [id number] / [id number]
[2019-05-30 00:32] VITALS: BP 112/75
--- NOTE | 2019-05-30 00:33 | NUR ---
pt had complaints being light headed. pts vitals and blood pressure was taken. will continue to monitor.
[2019-05-30 03:05] VITALS: BP 116/75
[2019-05-30 05:16] VITALS: BP 107/69
[2019-05-30] MEDS: LEVOTHYROXINE 150 MCG TABLET PO SCH (05:19)
[2019-05-30 07:13] LABS: CALCIUM 8.4 mg/dL (8.5-10.1); CREATININE 2.2 mg/dL (0.7-1.3); GFR 30.1; POTASSIUM 4.3 mmol/L (3.5-5.1)
[2019-05-30] MEDS: INSULIN LISPRO 300 UNITS/3 ML VIAL. SQ SCH ×3 (08:00→17:23)
[2019-05-30] MEDS: BUMETANIDE 1 MG TABLET PO SCH ×2 (08:37→12:09)
[2019-05-30] MEDS: DABIGATRAN ETEXILATE 150 MG CAPSULE. PO SCH (08:37)
[2019-05-30] MEDS: RANOLAZINE 500 MG TAB.ER.12H PO SCH (08:37)
[2019-05-30] MEDS: FAMOTIDINE 20 MG TABLET PO SCH (08:37)
[2019-05-30] MEDS: PANTOPRAZOLE 40 MG TABLET. PO SCH (08:38)
[2019-05-30] MEDS: oxyCODONE IR 5 MG TABLET PO SCH (08:38)
[2019-05-30] MEDS: CLOPIDOGREL BISULFATE 75 MG TABLET PO SCH (08:38)
[2019-05-30] MEDS: CARVEDILOL 12.5 MG TABLET PO SCH ×2 (08:39→17:19)
[2019-05-30] MEDS: CITALOPRAM 20 MG TABLET. PO SCH (08:39)
[2019-05-30] MEDS: ISOSORBIDE MONONITRATE ER 30 MG TAB.ER.24H PO SCH (08:39)
[2019-05-30] MEDS: AMIODARONE HCL 200 MG TABLET PO SCH (08:40)
[2019-05-30] MEDS: FERROUS SULFATE 325 MG TABLET. PO SCH (08:40)
[2019-05-30] MEDS: CYANOCOBALAMIN (VITAMIN B-12) 1,000 MCG TABLET. PO SCH (08:40)
[2019-05-30] MEDS: NON FORMULARY ITEM (Empagliflozin (Jardiance) 10 MG) PO SCH (09:00)
[2019-05-30 10:09] VITALS: BP 115/75
[2019-05-30 14:38] VITALS: BP 101/62
--- NOTE | 2019-05-30 15:15 | PDOC ---
PROGRESS NOTES Diagnosis Problem Problems Medical Problems: (1) Chest pain Status: Acute (2) CHF (congestive heart failure) Status: Acute Assessment Problems Medical Problems: (1) Chest pain Status: Acute (2) CHF (congestive heart failure) Status: Acute 1. Dyspnea with AE COPD and mild a/c CHF. Improved. Continue present treatment. 2. Acute on chronic probable systolic CHF 3. CAD s/p CABG and subsequent PCI/stents. Cath 04/14 reportedly without intervention 4. ICM s/p AICD. Interrogation shows normal function and no significant arrhythmias. 5. Hypertension . Controlled. Continue present treatment. 6. Hyperlipidemia 7. Diabetes, II 8. PAFIB; maintaining ST. Patient reports his heart rate is chronically elevated 9. JANETTE on CKD 10. Tobaccoism; discussed/encouraged cessation PLAN As above. Objective Vital Signs Date Time Temp Pulse Resp B/P (MAP) Pulse Ox O2 Delivery O2 Flow Rate FiO2 05/30/19 14:38 97.6 90 20 101/62 (75) 95 Room Air Intake and Output 05/30/19 07:00 Intake Total 1920 ml Balance 1920 ml Intake Oral 1920 ml # Voids 4 Physical Exam Chest has mildly decreased breath sounds. CV is regular rate and rhythm. Abdomen soft. Review of Relevant I have reviewed the following items willi (where applicable) has been applied. Labs Laboratory Tests Test 05/28/19 16:35 05/28/19 19:47 05/28/19 22:21 05/29/19 07:08 Glucose (Fingerstick) 80 mg/dL (70-99) 83 mg/dL (70-99) 132 mg/dL (70-99) Sodium Level 134 mmol/L (136-145) Potassium Level 3.9 mmol/L (3.5-5.1) Chloride Level 101 mmol/L (98-107) Carbon Dioxide Level 24 mmol/L (21-32) Anion Gap 9 (6-14) Blood Urea Nitrogen 30 mg/dL (8-26) Creatinine 2.0 mg/dL (0.7-1.3) Estimated GFR (Cockcroft-Gault) 33.6 Glucose Level 117 mg/dL (70-99) Calcium Level 8.9 mg/dL (8.5-10.1) Magnesium Level 2.0 mg/dL (1.8-2.4) Troponin I Quantitative < 0.017 ng/mL (0-0.055) Triglycerides Level 91 mg/dL (0-150) Cholesterol Level 116 mg/dL (0-200) LDL Cholesterol, Calculated 72 mg/dL (0-100) VLDL Cholesterol, Calculated 18 mg/dL (0-40) Non-HDL Cholesterol Calculated 90 mg/dL (0-129) HDL Cholesterol 26 mg/dL (40-60) Cholesterol/HDL Ratio 4.0 Thyroid Stimulating Hormone (TSH) 3.735 uIU/mL (0.358-3.740) Test 05/29/19 07:52 05/29/19 11:39 05/29/19 17:04 05/29/19 20:00 Glucose (Fingerstick) 112 mg/dL (70-99) 118 mg/dL (70-99) 99 mg/dL (70-99) 62 mg/dL (70-99) Test 05/29/19 21:14 05/30/19 00:20 05/30/19 06:35 05/30/19 07:20 Glucose (Fingerstick) 121 mg/dL (70-99) 116 mg/dL (70-99) 113 mg/dL (70-99) Sodium Level 134 mmol/L (136-145) Potassium Level 4.3 mmol/L (3.5-5.1) Chloride Level 99 mmol/L (98-107) Carbon Dioxide Level 27 mmol/L (21-32) Anion Gap 8 (6-14) Blood Urea Nitrogen 35 mg/dL (8-26) Creatinine 2.2 mg/dL (0.7-1.3) Estimated GFR (Cockcroft-Gault) 30.1 Glucose Level 119 mg/dL (70-99) Calcium Level 8.4 mg/dL (8.5-10.1) Test 05/30/19 11:39 Glucose (Fingerstick) 122 mg/dL (70-99) Microbiology 05/27/19 Blood Culture - Preliminary, Resulted NO GROWTH AFTER 2 DAYS... Medications Current Medications Aspirin (Children'S Aspirin) 324 mg 1X ONCE PO Last administered on 05/27/19at 15:39; Start 05/27/19 at 15:30; Stop 05/27/19 at 15:32; Status DC Morphine Sulfate (Morphine 4mg Syringe) 4 mg PRN Q15MIN PRN IV/SQ PAIN GREATER THAN 3/10 Last administered on 05/27/19at 22:16; Start 05/27/19 at 15:30; Stop 05/28/19 at 14:47; Status DC Furosemide (Lasix) 60 mg 1X ONCE IVP Last administered on 05/27/19at 16:26; Start 05/27/19 at 16:15; Stop 05/27/19 at 16:16; Status DC Ondansetron HCl (Zofran) 4 mg PRN Q4HRS PRN IV NAUSEA/VOMITING Last admi nistered on 05/28/19at 09:04; Start 05/27/19 at 17:45; Stop 05/28/19 at 17:44; Status DC Morphine Sulfate (Morphine 4mg Syringe) 4 mg PRN Q2HR PRN IV PAIN Last administered on 05/28/19at 14:36; Start 05/27/19 at 17:45; Stop 05/28/19 at 17:44; Status DC Furosemide (Lasix) 40 mg 1X ONCE IVP ; Start 05/28/19 at 00:30; Stop 05/28/19 at 00:31; Status DC Labetalol HCl (Normodyne) 10 mg 1X ONCE IVP ; Start 05/28/19 at 00:30; Stop 05/28/19 at 00:31; Status DC Amiodarone HCl (Cordarone) 200 mg DAILY PO Last administered on 05/30/19at 08:40; Start 05/28/19 at 09:00 Clopidogrel Bisulfate (Plavix) 75 mg DAILY PO Last administered on 05/30/19at 08:38; Start 05/28/19 at 09:00 Dabigatran (Pradaxa) 150 mg BID PO Last administered on 05/30/19at 08:37; Start 05/28/19 at 09:00 Ferrous Sulfate (Feosol) 325 mg DAILY PO Last administered on 05/30/19at 08:40; Start 05/28/19 at 09:00 Non-Formulary Medication (Albuterol Sulfate (Albuterol Sulfate Neb Soln)) 1 vial QID PRN NEB SHORTNESS OF BREATH; Start 05/28/19 at 07:45; Status UNV Atorvastatin Calcium (Lipitor) 80 mg QHS PO Last administered on 05/29/19at 21:23; Start 05/28/19 at 21:00 Ranolazine (Ranexa) 1,000 mg BID PO Last administered on 05/30/19 08:37; Start 05/28/19 at 09:00 Bumetanide (Bumex) 1 mg NOON PO Last administered on 05/30/19 12:09; Start 05/28/19 at 12:00 Carvedilol (Coreg) 12.5 mg BIDWMEALS PO Last administered on 05/30/19 08:39; Start 05/28/19 at 08:30 Montelukast Sodium (Singulair) 10 mg HS PO Last administered on 05/29/19 21:22; Start 05/28/19 at 21:00 Pantoprazole Sodium (Protonix) 40 mg DAILY PO Last administered on 05/30/19 08:38; Start 05/28/19 at 09:00 Bumetanide (Bumex) 2 mg DAILY PO Last administered on 05/30/19 08:37; Start 05/28/19 at 09:00 Cyanocobalamin (Vitamin B-12) 2,500 mcg DAILY PO Last administered on 05/30/19 08:40; Start 05/28/19 at 09:00 Non-Formulary Medication (Empagliflozin (Jardiance)) 10 mg DAILY PO ; Start 05/28/19 at 09:00; Status UNV Citalopram Hydrobromide (CeleXA) 20 mg DAILY PO Last administered on 05/30/19 08:39; Start 05/28/19 at 09:00 Hydromorphone HCl (Dilaudid) 4 mg PRN QID PRN PO PAIN Last administered on 05/29/19 08:47; Start 05/28/19 at 08:45 Insulin Glargine (Lantus Syringe) 14 unit QHS SQ ; Start 05/28/19 at 21:00 Insulin Human Lispro (HumaLOG) 3 units TIDWMEALS SQ Last administered on 05/30/19 12:15; Start 05/28/19 at 12:00 Isosorbide Mononitrate (Imdur) 60 mg DAILY PO Last administered on 05/30/19 08:39; Start 05/28/19 at 09:00 Levothyroxine Sodium (Synthroid) 300 mcg DAILY06 PO Last administered on 05/30/19at 05:19; Start 05/29/19 at 06:00 Oxycodone HCl (Roxicodone) 5 mg BID PO Last administered on 05/30/19at 08:38; Start 05/28/19 at 09:00 Famotidine (Pepcid) 40 mg DAILY PO Last administered on 05/30/19at 08:37; Start 05/28/19 at 09:00 Albuterol Sulfate (Ventolin) 2.5 mg PRN QID PRN NEB SHORTNESS OF BREATH; Start 05/28/19 at 08:45 Acetaminophen (Tylenol) 650 mg PRN TID PRN PO PAIN / TEMP Last administered on 05/28/19at 17:51; Start 05/28/19 at 17:45 Active Scripts Active Reported Dilaudid (Hydromorphone Hcl) 4 Mg Tablet 1 Tab PO PRN QID PRN MDD 4 Tablet(s) 30 Days Ranexa (Ranolazine) 1,000 Mg Tab.er.12h 1 Tab PO BID 30 Days Jardiance (Empagliflozin) 10 Mg Tablet 10 Mg PO DAILY Lantus Solostar (Insulin Glargine,Hum.rec.anlog) 100 Unit/1 Ml Insuln.pen 14 Unit SQ QHS Humalog (Insulin Lispro) 100 Unit/1 Ml Cartridge 3 Unit SQ TIDWMEALS Albuterol Sulfate Neb Soln (Albuterol Sulfate) 0.63 Mg/3 Ml Vial.neb 1 Vial NEB QID PRN Trelegy Ellipta 100-62.5-25 (Fluticasone/Umeclidin/Vilanter) 1 Each Blst.w.dev 1 Each IH DAILY B-12 (Cyanocobalamin (Vitamin B-12)) 500 Mcg Tablet 5 Tab PO DAILY 30 Days Synthroid (Levothyroxine Sodium) 300 Mcg Tablet 300 Mcg PO DAILY06 Escitalopram Oxalate 10 Mg Tablet 1 Tab PO DAILY Ferrous Sulfate 325 Mg Tablet 1 Tab PO DAILY Zantac (Ranitidine Hcl) 150 Mg Tablet 300 Mg PO DAILY Oxycodone Hcl 5 Mg Capsule 5 Mg PO BID Isosorbide Mononitrate Er (Isosorbide Mononitrate) 60 Mg Tab.er.24h 1 Tab PO DAILY Coreg (Carvedilol) 12.5 Mg Tablet 12.5 Mg PO BIDWMEALS Pradaxa (Dabigatran Etexilate Mesylate) 150 Mg Capsule 1 Cap PO BID Lipitor (Atorvastatin Calcium) 80 Mg Tablet 80 Mg PO QHS Amiodarone Hcl 200 Mg Tablet 1 Tab PO DAILY Montelukast Sodium Tablet (Montelukast Sodium) 10 Mg Tablet 10 Mg PO HS Plavix (Clopidogrel Bisulfate) 75 Mg Tablet 1 Tab PO DAILY 30 Days Bumetanide 2 Mg Tablet 1 Tab PO DAILY Bumetanide 1 Mg Tablet 1 Mg PO NOON Protonix (Pantoprazole Sodium) 40 Mg Tablet.dr 1 Tab PO DAILY Vitals/I & O Vital Sign - Last 24 Hours 05/29/19 05/29/19 05/29/19 05/29/19 15:31 17:14 19:44 20:45 Temp 97.5 97.6 Pulse 100 100 91 Resp 20 20 B/P (MAP) 97/61 (73) 97/61 120/61 (80) Pulse Ox 96 91 O2 Delivery Room Air Room Air Room Air 05/29/19 05/29/19 05/29/19 05/29/19 21:22 21:23 22:23 22:27 Temp 97.6 Pulse 91 86 Resp 18 18 18 B/P (MAP) 120/61 104/69 (81) Pulse Ox 91 95 95 O2 Delivery Room Air Room Air Room Air 05/30/19 05/30/19 05/30/19 05/30/19 00:32 03:05 05:16 08:00 Temp 97.7 97.6 97.5 Pulse 85 85 87 Resp 18 20 B/P (MAP) 112/75 (87) 116/75 (89) 107/69 (82) Pulse Ox 96 97 93 O2 Delivery Room Air Room Air Room Air Room Air 05/30/19 05/30/19 05/30/19 05/30/19 08:37 08:38 08:39 08:39 Pulse 87 87 87 Resp 20 B/P (MAP) 107/69 107/69 107/69 Pulse Ox 93 O2 Delivery Room Air 05/30/19 05/30/19 05/30/19 05/30/19 08:40 09:38 10:09 14:38 Temp 97.5 97.6 Pulse 87 89 90 Resp 20 20 20 B/P (MAP) 107/69 115/75 (88) 101/62 (75) Pulse Ox 93 93 95 O2 Delivery Room Air Room Air Room Air Intake and Output 05/29/19 05/29/19 05/30/19 15:00 23:00 07:00 Intake Total 600 ml 600 ml 720 ml Balance 600 ml 600 ml 720 ml DAY NEAL MD May 30, 2019 15:15
[2019-05-30 17:19] VITALS: BP 101/62
--- NOTE | 2019-05-30 18:02 | NUR ---
Discharge Note: MELISSA DIAZ J1 [facility] Discharge instructions and discharge home medications reviewed with Patient and a copy given. All questions have been answered and understanding verbalized. The following instructions and handouts were given: Follow up with the lab on Sunday06/04/19, Stop taking Bumex oziel. Discontinued lines and drains: peripheral IV discontinued. Pressure dressing applied, no complications Patient discharged to home.
--- NOTE | 2019-05-30 18:23 | DS ---
DATE OF DISCHARGE: HOSPITAL COURSE: The patient is a 64-year-old male patient who came in with increasing shortness of breath. He was evaluated by Cardiology team and has had an echocardiogram, which showed that his left ventricular systolic function is moderately to severely impaired, ejection fraction was 25-30%. 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 He does have a pacemaker lead in the right ventricle. His pacemaker was interrogated and apparently has been functioning well. He unfortunately developed acute kidney injury. We held his Bumex yesterday and continued today and his creatinine continued to rise and his creatinine has risen from 1.2 to 2.2. I tried to convince him to stay; however, he said that he has an obligation to pay his rent and he is the only one who can kaplan his check and therefore, I recommended that he stop the bumetanide on Sunday and Sunday and check his basic metabolic profile on Sunday and then let me know about the result. PHYSICAL EXAMINATION: GENERAL: When I saw him this afternoon, he looked well and was clearly in no apparent respiratory distress. No pallor, jaundice, cyanosis or thyromegaly. No jugular venous distension. No limb edema. VITAL SIGNS: His heart rate was 90, blood pressure was 101/60, temperature 97.6, respiratory rate 20, and oxygen saturation 95%. The rest of clinical exam is stable. His blood sugar has been stable. His kidney function this morning showed a creatinine of 2.2, BUN of 35. His H and H was 12 and 36 with normal white cell count and platelets. He was discharged to continue on his medication, except he was advised to hold his bumetanide both morning and afternoon dose on Sunday and Sunday. Check his basic metabolic profile on Sunday and to let me know about the result. FINAL DIAGNOSES: 1. Dyspnea with acute exacerbation of chronic obstructive pulmonary disease. 2. Mild acute on chronic probably systolic congestive heart failure. 3. Coronary artery disease, status post coronary artery bypass graft with subsequent stent deployment. 4. Ischemic cardiomyopathy, status post AICD interrogation shows normal function and no significant arrhythmias. 5. Hypertension, well controlled. 6. Hyperlipidemia. 7. Type 2 diabetes, well controlled. 8. Paroxysmal atrial fibrillation, maintaining sinus rhythm. 9. Acute on chronic kidney injury, probably excessive diuresis, will stop his bumetanide on Sunday and Sunday. He should check his basic metabolic profile on Sunday and call me with the result. PAULINO MOHAN MD DR: CODY/leslee JOB#: [id number] / [id number]
== END 2019-05-30 18:06 | disposition home or self-care (01) | DRG 682 ==
LOC: ER 15:01 → 1 SOUTH 17:33
PROVIDERS: ADMIT Internal Medicine; ATTEND Internal Medicine
PROC: 4B02XSZ Measurement of Cardiac Pacemaker, External Approach (ICD-10-PCS; principal; 2019-05-28)
DX: N17.9 Acute kidney failure, unspecified (principal); I50.43 Acute on chronic combined systolic (congestive) and diastolic (congestive) heart failure; E46 Unspecified protein-calorie malnutrition; I13.0 Hypertensive heart and chronic kidney disease with heart failure and stage 1 through stage 4 chronic kidney disease, or unspecified chronic kidney disease; J44.1 Chronic obstructive pulmonary disease with (acute) exacerbation; D64.9 Anemia, unspecified; E11.22 Type 2 diabetes mellitus with diabetic chronic kidney disease; E78.5 Hyperlipidemia, unspecified; F17.200 Nicotine dependence, unspecified, uncomplicated; I25.10 Atherosclerotic heart disease of native coronary artery without angina pectoris; I25.2 Old myocardial infarction; I25.5 Ischemic cardiomyopathy; I48.0 Paroxysmal atrial fibrillation; N18.9 Chronic kidney disease, unspecified; N40.0 Benign prostatic hyperplasia without lower urinary tract symptoms; Z82.49 Family history of ischemic heart disease and other diseases of the circulatory system; Z86.73 Personal history of transient ischemic attack (TIA), and cerebral infarction without residual deficits; Z95.0 Presence of cardiac pacemaker; Z95.1 Presence of aortocoronary bypass graft; Z95.5 Presence of coronary angioplasty implant and graft; K21.9 Gastro-esophageal reflux disease without esophagitis; Z68.33 Body mass index [BMI] 33.0-33.9, adult
CPT/HCPCS: 36415; 71046; 80048; 80053; 80061; 82947; 83605; 83690; 83735; 83880; 84443; 84484; 85025; 87040; 87804; 93005; 93306; 96374; 96375; 96376; J1815; J1940; J2270; J2405; 99285-25

== ENCOUNTER 2019-06-14 22:44 | Observation (INO) | payer MEDICARE, MEDICAID ==
[~2019-06-14] VITALS: Ht 182.9 cm; Wt 117.5 kg
[~2019-06-14 22:44] MED LIST: ALBU0.63 NEB; AMIO200T4 PO; BUME1TAB3 PO; BUME2TAB3 PO; CARV12.5 PO; CLOP75TA57 PO; CYAN500T17 PO; DABI150C PO; EMPA10TA PO; ESCITALOPRAM OX10 MG PO; FERR325T14 PO; FLUT1BLS3 IH; HYDR4TAB45 PO; INSU100C SQ; INSU100I13 SQ; ISOS60TA2 PO; LEVO300T2 PO; LIPITOR80 MG PO; MONT10TA80 PO; OXYC5CAP PO; PANT40TA3 PO; RANI-376 PO; RANO10002 PO
--- NOTE | 2019-06-14 23:15 | PHYS DOC ---
Past History Past Medical History: CHF Additional Past Medical Histor: dermatitis Past Surgical History: Coronary Bypass Surgery, Other Additional Past Surgical Histo: cardiac stents; lower back l4-l5; debrided back; partial thyroidectomy Alcohol Use: None Drug Use: None Adult General Chief Complaint Chief Complaint: CHEST PAIN [facility] HPI 54-year-old male presents with intermittent chest pains all day. They have been coming and going since this morning. There are sharp pain in the left side of his chest. They are mild to moderate in intensity. When they are moderate in intensity he feels some shortness of breath, but no diaphoresis. The patient had one episode of low CVA as well as one episode of diarrhea. Prior to these, he was feeling dizzy which he describes as lightheaded and off balance. Patient decided he should come in for evaluation. He has a history of pacemaker with defibrillator. He denies defibrillator going off today. Review of Systems Review of Systems Constitutional: Denies fever or chills [] Eyes: Denies change in visual acuity, redness, or eye pain [] HENT: Denies nasal congestion or sore throat [] Respiratory: Denies cough or shortness of breath [] Cardiovascular: No additional information not addressed in HPI [] GI: nausea, vomiting, diarrhea [] : Denies dysuria or hematuria [] Musculoskeletal: Denies back pain or joint pain [] Integument: Denies rash or skin lesions [] Neurologic: Denies headache, focal weakness or sensory changes [] Endocrine: Denies polyuria or polydipsia [] All other systems were reviewed and found to be within normal limits, except as documented in this note. Current Medications Current Medications Current Medications Medications (Trade) Dose Ordered Sig/[facility] Start Time Stop Time Status Last Admin Dose Admin Ondansetron HCl (Zofran) 4 mg 1X ONCE 06/14/19 23:15 06/14/19 23:16 UNV Sodium Chloride 1,000 ml @ 1,000 mls/hr 1X ONCE 06/14/19 23:15 06/15/19 00:14 UNV Allergies Allergies Allergies Coded Allergies Type Severity Reaction Last Updated Verified levofloxacin Allergy Unknown Rash 05/27/19 Yes niacin Allergy Unknown 05/27/19 Yes Physical Exam Physical Exam Constitutional: Well developed, obese, well nourished, no acute distress, non- toxic appearance. [] HENT: Normocephalic, atraumatic, bilateral external ears normal, oropharynx moist, no oral exudates, nose normal. [] Eyes: PERRLA, EOMI, conjunctiva normal, no discharge. [] Neck: Normal range of motion, no tenderness, supple, no stridor. [] Cardiovascular:Heart rate regular rhythm, no murmur [] Lungs & Thorax: Bilateral breath sounds clear to auscultation [] Abdomen: Bowel sounds normal, soft, no tenderness, no masses, no pulsatile masses. [] Skin: Warm, dry, no erythema, no rash. [] Back: No tenderness, no CVA tenderness. [] Extremities: No tenderness, no cyanosis, no clubbing, ROM intact, no edema. [] Neurologic: Alert and oriented X 3, normal motor function, normal sensory function, no focal deficits noted. [] Psychologic: Affect normal, judgement normal, mood concerned. [] EKG EKG Paced rhythm, rate 70, normal axis, no ST elevations or depressions.[] Radiology/Procedures Radiology/Procedures [] Impressions: AP chest. HISTORY: Chest pain AP view was taken of the chest. Heart is enlarged. Left pacemaker is unchanged. There is no effusion. There are no acute infiltrates. There is a density adjacent to the hilum along on the left which could be superimposed vessels but a small nodules possible. Follow-up study or CT could be of benefit. IMPRESSION: 1. Cardiomegaly. 2. No acute infiltrates. 3. Prominent vessels versus nodule at the lateral margin of the left hilum. Electronically signed by: Kenya Garcia MD (06/14/2019 11:40 PM) [facility] DICTATED AND SIGNED BY: KENYA GARCIA MD DATE: 06/14/19 [id number] CC: ERICK GARCIA DO; MELISSA HART PAC ~ Course & Med Decision Making Course & Med Decision Making Pertinent Labs and Imaging studies reviewed. (See chart for details) Patient's EKG is unremarkable. His chest x-rays negative for acute findings. See official report details. His troponin is negative. His other labs are unremarkable. The patient's heart score is a 5. I will offer admission and observation to the patient. The patient has agreed to observation admission for ongoing trending. I spoke with Dr. Maldonado. The patient he has accepted him for admission. [] Dragon Disclaimer Dragon Disclaimer This electronic medical record was generated, in whole or in part, using a voice recognition dictation system. The HEART Score for CP Pts HEART Score for Chest Pain: HEART Score for Chest Pain Response (Comments) Value History Slighlty/Non-Suspicious 0 ECG Nonspecific Repolarizatio 1 Age > 65 2 Risk Factors >3 Risk Factors or Hx CAD 2 Troponin < Normal Limit 0 Total 5 Risk Factors: Risk Factors: DM, Current or recent (<one month) smoker, HTN, HLP, family history of CAD, obesity. Risk Scores: Score 0 - 3: 2.5% MACE over next 6 weeks - Discharge Home Score 4 - 6: 20.3% MACE over next 6 weeks - Admit for Clinical Observation Score 7 - 10: 72.7% MACE over next 6 weeks - Early Invasive Strategies Departure Departure: Impression: Primary Impression: Chest pain Disposition: 01 HOME/RESIDENCE PRIOR TO ADM Condition: STABLE Referrals: MELISSA HART (PCP) ERICK GARCIA DO Jun 14, 2019 23:14
[2019-06-14] MEDS ORDERED: ONDANSETRON PF 4 MG/2 ML VIAL. IVP ONE (23:30)
[2019-06-14] MEDS ORDERED: IV NORMAL SALINE 1,000ML 1,000 ML IV ONE (23:30)
--- NOTE | 2019-06-14 23:43 | RAD ---
AP chest. HISTORY: Chest pain AP view was taken of the chest. Heart is enlarged. Left pacemaker is unchanged. There is no effusion. There are no acute infiltrates. There is a density adjacent to the hilum along on the left which could be superimposed vessels but a small nodules possible. Follow-up study or CT could be of benefit. IMPRESSION: 1. Cardiomegaly. 2. No acute infiltrates. 3. Prominent vessels versus nodule at the lateral margin of the left hilum. Electronically signed by: Ino Garcia MD (06/14/2019 11:40 PM) [facility]
[2019-06-14 23:47] LABS: BASO # 0.1 x10^3/uL (0.0-0.2); BASO % 1 % (0-3); EOS # 0.1 x10^3/uL (0.0-0.7); EOS % 2 % (0-3); HEMATOCRIT 36.9 % (39.0-53.0); HEMOGLOBIN 12.4 g/dL (13.0-17.5); LYMPH # 0.9 x10^3/uL (1.0-4.8); LYMPH % 13 % (24-48); MEAN CORPUSCULAR HEMOGLOBIN 33 pg (25-35); MEAN CORPUSCULAR HGB CONC 34 g/dL (31-37); MEAN CORPUSCULAR VOLUME 97 fL (79-100); MONO # 0.5 x10^3/uL (0.0-1.1); MONO % 7 % (0-9); NEUT # 5.7 x10^3uL (1.8-7.7); NEUT % 78 % (31-73); PLATELET COUNT 195 x10^3/uL (140-400); RED BLOOD COUNT 3.79 x10^6/uL (4.30-5.70); RED CELL DISTRIBUTION WIDTH 15.5 % (11.5-14.5); WHITE BLOOD COUNT 7.3 x10^3/uL (4.0-11.0)
[2019-06-14 23:55] LABS: CALCIUM 8.7 mg/dL (8.5-10.1); CREATININE 1.7 mg/dL (0.7-1.3); GFR 40.5; POTASSIUM 4.2 mmol/L (3.5-5.1)
[2019-06-15 00:07] LABS: ALBUMIN 3.2 g/dL (3.4-5.0); ALBUMIN/GLOBULIN RATIO 0.9 (1.0-1.7); TOTAL BILIRUBIN 0.7 mg/dL (0.2-1.0); TOTAL PROTEIN 6.6 g/dL (6.4-8.2)
[2019-06-15] MEDS ORDERED: ONDANSETRON PF 4 MG/2 ML VIAL. IV PRN (01:15)
[2019-06-15 02:11] LABS: BILIRUBIN,URINE NEG (NEG); CLARITY,URINE CLEAR; COLOR,URINE YELLOW; GLUCOSE,URINE 500 mg/dL (NEG)
[2019-06-15 02:12] LABS: BACTERIA,URINE FEW /HPF (0-FEW); HYALINE CASTS, URINE OCC /HPF; NITRITE,URINE NEG (NEG); SPERM,URINE PRESENT /HPF; SQUAMOUS EPITHELIAL CELL,UR OCC /LPF; UROBILINOGEN,URINE 0.2 mg/dL (0.2 mg/dL)
--- NOTE | 2019-06-15 02:28 | NUR ---
The patient, MELISSA DIAZ, 64 y/o, M admitted by PAULINO MOHAN MD, was given written information regarding hospital policies, unit procedures and contact persons. Valuables were checked and logged. Call light in place. Will continue to monitor.
[2019-06-15 02:46] VITALS: BP 127/64
--- NOTE | 2019-06-15 02:49 | NUR ---
Pt is unaware of what is home medications are. Pt states he will call his in the am for his home medications.
[2019-06-15] MEDS ORDERED: NITROGLYCERIN SUBLINGUAL 0.4 MG BOTTLE OF 25. SL PRN (03:00)
[2019-06-15] MEDS: HYDROmorphone 2 MG TABLET PO PRN ×3 (03:14→14:58)
[2019-06-15] MEDS: IPRATRPIUM/ALBUTEROL 0.5/2.5MG 3 ML NEBU. NEB SCH ×2 (08:00→10:01)
[2019-06-15 08:05] VITALS: BP 104/55
--- NOTE | 2019-06-15 08:19 | EKG ---
[address] [address] Test Date: 2019-06-14 Test Time: 23:09:05 Pat Name: MELISSA DIAZ Department: Room: Gender: M Director Transition: : 1955 Requested By: ERICK GARCIA Order Number: [id number] Reading MD: Measurements Intervals [place] Rate: 70 P: RI: QRS: 20 QRSD: 102 T: 94 QT: 434 QTc: 472 Interpretive Statements IRREGULAR RHYTHM, NO P-WAVE FOUND QRS(T) CONTOUR ABNORMALITY CONSISTENT WITH INFERIOR INFARCT PROBABLY OLD ABNORMAL ECG RI6.01 No previous ECG available for comparison
[2019-06-15 11:07] VITALS: BP 95/43
--- NOTE | 2019-06-15 13:35 | PDOC2 ---
CARDIAC CONSULT DATE OF CONSULT Date Of Consult DATE: 06/15/19 TIME: 13:28 REASON FOR CONSULT Reason for Consult Chest pain, shortness of breath REFERRING PHYSICIAN Referring Physician Dr. Maldonado SOURCE Source: Chart review, Patient HPI History of Present Illness The patient is a 64-year-old male who was admitted from the emergency room for episodes of chest discomfort and shortness of breath. The patient's troponins have been normal 2 overnight. His EKG has been atrially paced with no acute ischemic changes. He is feeling better this morning and his pain has resolved. Chest x-ray shows cardiomegaly with no acute infiltrates. The patient has an extensive cardiac history including bypass surgery with subsequent stents and a cardiomyopathy with a implantable defibrillator placed. His most recent echocardiogram from 05/29/19 showed an ejection fraction of 25-30% and a pulmonary artery pressure 41 mmHg. PAST MEDICAL HISTORY Cardiovascular: AFIB, CAD, CHF, HTN Renal/: Chronic renal insuff Endocrine: Diabetes PAST SURGICAL HISTORY Past Surgical History: CABG, Other (coronary stents, implantable defibrillator) FAMILY HISTORY Family History: Heart Disease SOCIAL HISTORY Smoke: No ALCOHOL: none CURRENT MEDICATIONS Current Medications Current Medications Sodium Chloride 1,000 ml @ 1,000 mls/hr 1X ONCE IV Last administered on 06/14/19at 23:34; Start 06/14/19 at 23:30; Stop 06/15/19 at 00:29; Status DC Ondansetron HCl (Zofran) 4 mg 1X ONCE IVP Last administered on 06/14/19at 23:34; Start 06/14/19 at 23:30; Stop 06/14/19 at 23:31; Status DC Ondansetron HCl (Zofran) 4 mg PRN Q4HRS PRN IV NAUSEA/VOMITING Last administered on 06/15/19at 02:43; Start 06/15/19 at 01:15; Stop 06/16/19 at 01:14 Albuterol/ Ipratropium (Duoneb) 3 ml RTQID NEB Last administered on 06/15/19at 10:01; Start 06/15/19 at 08:00; Stop 06/16/19 at 07:59 Hydromorphone HCl (Dilaudid) 4 mg PRN QID PRN PO SEVERE PAIN 7-10 Last administered on 06/15/19at 10:01; Start 06/15/19 at 03:00 Nitroglycerin (Nitrostat) 0.4 mg PRN Q5MIN PRN SL CHEST PAIN Last administered on 06/15/19at 10:02; Start 06/15/19 at 03:00 Active Scripts Active Reported Dilaudid (Hydromorphone Hcl) 4 Mg Tablet 1 Tab PO PRN QID PRN MDD 4 Tablet(s) 30 Days Ranexa (Ranolazine) 1,000 Mg Tab.er.12h 1 Tab PO BID 30 Days Jardiance (Empagliflozin) 10 Mg Tablet 10 Mg PO DAILY Lantus Solostar (Insulin Glargine,Hum.rec.anlog) 100 Unit/1 Ml Insuln.pen 14 Unit SQ QHS Humalog (Insulin Lispro) 100 Unit/1 Ml Cartridge 3 Unit SQ TIDWMEALS Albuterol Sulfate Neb Soln (Albuterol Sulfate) 0.63 Mg/3 Ml Vial.neb 1 Vial NEB QID PRN Trelegy Ellipta 100-62.5-25 (Fluticasone/Umeclidin/Vilanter) 1 Each Blst.w.dev 1 Each IH DAILY B-12 (Cyanocobalamin (Vitamin B-12)) 500 Mcg Tablet 5 Tab PO DAILY 30 Days Synthroid (Levothyroxine Sodium) 300 Mcg Tablet 300 Mcg PO DAILY06 Escitalopram Oxalate 10 Mg Tablet 1 Tab PO DAILY Ferrous Sulfate 325 Mg Tablet 1 Tab PO DAILY Zantac (Ranitidine Hcl) 150 Mg Tablet 300 Mg PO DAILY Oxycodone Hcl 5 Mg Capsule 5 Mg PO BID Isosorbide Mononitrate Er (Isosorbide Mononitrate) 60 Mg Tab.er.24h 1 Tab PO DAILY Coreg (Carvedilol) 12.5 Mg Tablet 12.5 Mg PO BIDWMEALS Pradaxa (Dabigatran Etexilate Mesylate) 150 Mg Capsule 1 Cap PO BID Lipitor (Atorvastatin Calcium) 80 Mg Tablet 80 Mg PO QHS Amiodarone Hcl 200 Mg Tablet 1 Tab PO DAILY Montelukast Sodium Tablet (Montelukast Sodium) 10 Mg Tablet 10 Mg PO HS Plavix (Clopidogrel Bisulfate) 75 Mg Tablet 1 Tab PO DAILY 30 Days Bumetanide 2 Mg Tablet 1 Tab PO DAILY Bumetanide 1 Mg Tablet 1 Mg PO NOON Protonix (Pantoprazole Sodium) 40 Mg Tablet. 1 Tab PO DAILY ALLERGIES Allergies: Coded Allergies: levofloxacin (Verified Allergy, Unknown, Rash, 05/27/19) niacin (Verified Allergy, Unknown, 05/27/19) ROS General: YES: Fatigue Respiratory: YES: Shortness of breath Cardiovascular: yes: Chest Pain PHYSICAL EXAM General: No acute distress HEENT: Atraumatic Lungs: Other (mildly decreased breath sounds) Heart: Regular rate Abdomen: Normal bowel sounds VITALS Vital Signs Vital Signs Date Time Temp Pulse Resp B/P (MAP) Pulse Ox O2 Delivery O2 Flow Rate FiO2 06/15/19 11:07 70 18 95/43 (60) 98 06/15/19 10:04 Room Air 06/15/19 08:00 2.0 06/15/19 02:46 98.5 LABS LABS Laboratory Tests Test 06/14/19 01:17 06/14/19 23:20 06/15/19 02:40 06/15/19 04:10 Urine Collection Type Unknown Urine Color Yellow Urine Clarity Clear Urine pH 5.0 Urine Specific [place] 1.020 Urine Protein Trace (NEG-TRACE) Urine Glucose (UA) 500 mg/dL (NEG) Urine Ketones (Stick) Neg mg/dL (NEG) Urine Blood Trace (NEG) Urine Nitrite Neg (NEG) Urine Bilirubin Neg (NEG) Urine Urobilinogen Dipstick 0.2 mg/dL (0.2 mg/dL) Urine Leukocyte Esterase Neg (NEG) Urine RBC 6-10 /HPF (0-2) Urine WBC 1-4 /HPF (0-4) Urine Squamous Epithelial Cells Occ /LPF Urine Bacteria Few /HPF (0-FEW) Urine Hyaline Casts Occ /HPF Urine Mucus Slight /LPF Urine Sperm Present /HPF White Blood Count 7.3 x10^3/uL (4.0-11.0) Red Blood Count 3.79 x10^6/uL (4.30-5.70) Hemoglobin 12.4 g/dL (13.0-17.5) Hematocrit 36.9 % (39.0-53.0) Mean Corpuscular Volume 97 fL (79-100) Mean Corpuscular Hemoglobin 33 pg (25-35) Mean Corpuscular Hemoglobin Concent 34 g/dL (31-37) Red Cell Distribution Width 15.5 % (11.5-14.5) Platelet Count 195 x10^3/uL (140-400) Neutrophils (%) (Auto) 78 % (31-73) Lymphocytes (%) (Auto) 13 % (24-48) Monocytes (%) (Auto) 7 % (0-9) Eosinophils (%) (Auto) 2 % (0-3) Basophils (%) (Auto) 1 % (0-3) Neutrophils # (Auto) 5.7 x10^3uL (1.8-7.7) Lymphocytes # (Auto) 0.9 x10^3/uL (1.0-4.8) Monocytes # (Auto) 0.5 x10^3/uL (0.0-1.1) Eosinophils # (Auto) 0.1 x10^3/uL (0.0-0.7) Basophils # (Auto) 0.1 x10^3/uL (0.0-0.2) Sodium Level 141 mmol/L (136-145) Potassium Level 4.2 mmol/L (3.5-5.1) Chloride Level 104 mmol/L (98-107) Carbon Dioxide Level 27 mmol/L (21-32) Anion Gap 10 (6-14) Blood Urea Nitrogen 21 mg/dL (8-26) Creatinine 1.7 mg/dL (0.7-1.3) Estimated GFR (Cockcroft-Gault) 40.5 BUN/Creatinine Ratio 12 (6-20) Glucose Level 180 mg/dL (70-99) Calcium Level 8.7 mg/dL (8.5-10.1) Total Bilirubin 0.7 mg/dL (0.2-1.0) Aspartate Amino Transf (AST/SGOT) 20 U/L (15-37) Alanine Aminotransferase (ALT/SGPT) 23 U/L (16-63) Alkaline Phosphatase 149 U/L (46-116) Troponin I Quantitative < 0.017 ng/mL (0-0.055) < 0.017 ng/mL (0-0.055) Total Protein 6.6 g/dL (6.4-8.2) Albumin 3.2 g/dL (3.4-5.0) Albumin/Globulin Ratio 0.9 (1.0-1.7) Glucose (Fingerstick) 146 mg/dL (70-99) D-Dimer (Geovanna) 0.31 mg/L (0.00-0.50) Test 06/15/19 07:45 06/15/19 08:02 06/15/19 12:11 Troponin I Quantitative < 0.017 ng/mL (0-0.055) Glucose (Fingerstick) 147 mg/dL (70-99) 183 mg/dL (70-99) IMAGES IMAGES Chest x-ray shows cardiomegaly with no acute infiltrates EKG EKG Atrially paced with no acute ischemic changes ECHOCARDIOGRAM Echocardiogram Echo from 05/29/19 shows an ejection fraction of 25-30%. ASSESSMENT/PLAN Assessment/Plan 1. Chest pain. No acute EKG changes. Troponin normal 2. Extensive cardiac history as noted above including I past surgery and stenting. We'll continue medical treatment and gradually increase activities. 2. Shortness of breath. Consistent with mild heart failure. Ejection fraction of 25-30%. We'll mildly diuresis. Continue baseline medications. 3. Implantable defibrillator. We'll check old records. 4. Hypertension. Under better control. 5. Hyperlipidemia. We'll check lab. 6. Chronic kidney disease. Also will monitor lab. 7. History of paroxysmal atrial fibrillation. Now atrially paced. 8. Diabetes mellitus. As per the primary service. Thank you for allowing us to participate in the care of your patient. DAY NEAL MD Jun 15, 2019 13:35
[2019-06-15 15:00] VITALS: BP 117/64
--- NOTE | 2019-06-15 15:11 | NUR ---
PT'S IV REMOVED WITH GAUZE IN PLACE. PT STABLE AT TIME OF DISCHARGE. DR. MOHAN AT BEDSIDE DISCUSSED PT'S DISCHARGE AND CARE AT HOME. PRINTED PACKET OF DISCHARGE INSTRUCTIONS GIVEN TO PT. PT SIGNED PAPERWORK AND MEDICARE FORMS. PT AMBULATED OUT OF BUILDING ACCOMPANIED BY [employer]. PICKED PATIENT UP AND DROVE HIM HOME.
--- NOTE | 2019-06-15 15:16 | SSS ---
ADMIT DATE: 06/15/2019 HISTORY OF PRESENT ILLNESS: The patient is a 64-year-old male patient who came to the Emergency Room complaining of chest pain, had had some nausea and vomiting as well as diarrhea. The pain is sharp in left side of his chest, mild to moderate intensity. Denied any diaphoresis. He has 1 episode of diarrhea, and prior to that, he was feeling dizzy, he described as lightheadedness and off balance and he decided to come to the Emergency Room for evaluation. He has a history of pacemaker with defibrillator. He denied any defibrillator going off today. He was extensively evaluated in the Emergency Room. His lab work was basically unremarkable. His chemistry was also unremarkable. His first set of cardiac enzyme showed troponin to be less than 0.017. D-dimer was less than 0.31 and his urinalysis showed glycosuria, but no other significant abnormality. He was admitted for overnight observation. He has had 2 more sets of cardiac enzymes and were all negative. He has no further episodes of nausea, vomiting, no diarrhea. He is tolerating his diet and has no evidence of postural hypotension and therefore, the patient will be discharged home to continue all his current medication and follow with his primary hyperion essbase developer. PAST MEDICAL HISTORY: Significant for type 2 diabetes mellitus longstanding, hypertension, hyperlipidemia, coronary artery disease, status post myocardial infarction. In 2007, he underwent percutaneous coronary intervention with stent deployment x 9, has coronary artery bypass graft surgery, has had cardiac arrest x 2. He apparently had left upper extremity compartment syndrome that required a fasciotomy. Has a lung nodule that is followed closely. Has had an acute kidney injury twice, once with the compartment syndrome when he was at [place] and 2 months ago he was treated with IV fluids for acute kidney injury. He has benign prostatic hypertrophy by symptoms, TIA, chronic obstructive pulmonary disease, obstructive sleep apnea, on 2 liters of oxygen by nasal cannula. PAST SURGICAL HISTORY: Significant for PCI with stent deployment x 9, coronary artery bypass graft surgery, fasciotomy, L4-L5 laminectomy. He has also had partial thyroidectomy. ALLERGIES: He is allergic to LEVOFLOXACIN AND NIACIN. MEDICATIONS: He is currently on following medications: He is on albuterol sulfate by nebulizer 4 times a day, ferrous sulfate 325 mg once a day, Pradaxa 150 mg twice a day, Plavix 75 mg once a day, amiodarone 200 mg once a day, Ranexa 1000 mg twice a day, atorvastatin calcium 80 mg at bedtime, isosorbide mononitrate 60 mg once a day, carvedilol 12.5 mg twice a day with meals, hydromorphone 4 mg 4 times a day as needed, oxycodone 5 mg twice a day, escitalopram oxalate 10 mg daily, bumetanide 1 mg once a day at noon and bumetanide 2 mg daily in the morning. He is on Trelegy Ellipta 1 inhalation once a day, Singulair 10 mg at bedtime, ranitidine 300 mg once a day, Protonix 40 mg once a day. He is on Lantus SoloSTAR 40 units at bedtime, Humalog insulin 3 units before meals. Jardiance 10 mg once a day, levothyroxine sodium 300 mcg once a day, cyanocobalamin 500 mcg, he takes 5 tablets once a day. FAMILY HISTORY: He has one sister who has coronary artery disease. His father in his 60s and mother in her 60s due to congestive heart failure. SOCIAL HISTORY: He is , has 2 daughters alive, has one daughter when she was 4 months old, one son because of congenital heart at age of 10 years and 1 son was electrocuted. He continued to smoke, does not drink alcohol or use any recreational drugs. 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 REVIEW OF SYSTEMS: As per history of present illness. PHYSICAL EXAMINATION: GENERAL: On arrival to the Emergency Room, the patient looked well and was clearly in no apparent respiratory distress. No pallor, jaundice or cyanosis. No lymphadenopathy, no thyromegaly. No jugular venous distention. No limb edema. VITAL SIGNS: His heart rate was 70, blood pressure was 109/56, temperature was 98.2, respiratory rate was 14 and oxygen saturation was 99%. HEAD, EYES, EARS, NOSE AND THROAT: Showed normocephalic, atraumatic. NECK: Supple. HEART: Showed normal first and second heart sounds. No gallop or murmur. CHEST: Clear to auscultation. No crepitation or rhonchi. ABDOMEN: Distended, soft, nontender. NEUROLOGIC: He was awake, alert, responding appropriately. All cranial nerves intact. EXTREMITIES: He moves extremities without difficulty. LABORATORY DATA: Showed a white cell count of 7300, hemoglobin 12.4, hematocrit 36.9, MCV 97 and platelet count of 195,000. His serum sodium 141, potassium 4.2, chloride 104, bicarbonate 27, anion gap of 10, BUN 21, creatinine 1.7, estimated GFR was 40 mL per minute. His glucose 180, calcium was 8.7. Total bilirubin, AST, ALT were normal. Alkaline phosphatase slightly elevated. Total protein was 6.5, albumin was 3.2. The patient has 3 sets of cardiac enzymes, all of them ruled out acute myocardial infarction. His D-dimer was 0.31. Urinalysis was essentially unremarkable. ASSESSMENT AND PLAN: We did check his orthostatics and he has no evidence of postural hypotension and he has no further episodes of nausea, vomiting, no diarrhea. Chest pain has subsided and acute myocardial infarction ruled out. A decision was made to discharge him home to follow with his primary care physician and/or hyperion essbase developer. He was seen in fact by the our hyperion essbase developer who did not recommend any further ischemic workup and recommended to continue with all his current medication. The patient was discharged home chest pain free, hemodynamically stable. PAULINO MOHAN MD DR: CODY/leslee JOB#: [id number] / [id number]
== END 2019-06-15 15:11 | disposition home or self-care (01) ==
LOC: ER 22:44 → ICU 06-15 01:00
PROVIDERS: ADMIT Internal Medicine; ATTEND Internal Medicine
DX: R07.89 Other chest pain (principal); I10 Essential (primary) hypertension; I25.10 Atherosclerotic heart disease of native coronary artery without angina pectoris; I25.2 Old myocardial infarction; E11.9 Type 2 diabetes mellitus without complications; E78.5 Hyperlipidemia, unspecified; R11.2 Nausea with vomiting, unspecified; J44.9 Chronic obstructive pulmonary disease, unspecified; N40.0 Benign prostatic hyperplasia without lower urinary tract symptoms; G47.33 Obstructive sleep apnea (adult) (pediatric); F17.200 Nicotine dependence, unspecified, uncomplicated; Z95.1 Presence of aortocoronary bypass graft; Z98.890 Other specified postprocedural states; Z86.73 Personal history of transient ischemic attack (TIA), and cerebral infarction without residual deficits
CPT/HCPCS: 36415; 71045; 80053; 81001; 82947; 84484; 85025; 85379; 93005; 94640; 96361; 96374; 96376; 99284; G0378; J2405; J7620; G0379; J7030

== ENCOUNTER 2019-07-06 09:16 | Inpatient (IN) | payer MEDICARE, MEDICAID ==
[~2019-07-06] VITALS: Ht 182.9 cm; Wt 112.0 kg
[2019-07-06] MEDS ORDERED: IV NORMAL SALINE 1,000ML 1,000 ML IV SCH (09:23)
--- NOTE | 2019-07-06 09:32 | PHYS DOC ---
Past History Past Medical History: CHF, COPD, Diabetes, High Cholesterol, Hypertension, Hypothyroid, Kidney Stones, [place], Other Additional Past Medical Histor: radial dermatitis(back pain), mi '08 Past Surgical History: Coronary Bypass Surgery, Other Additional Past Surgical Histo: cardiac stents,l4-l5,debrideback,partial thyroidectomy,left arm/infiltratra Alcohol Use: None Drug Use: None Adult General Chief Complaint Chief Complaint: SHORTNESS OF BREATH HPI HPI Patient is a 64 year old male with extensive past medical history inc luding diabetes, coronary artery disease, stent placement, COPD, congestive heart failure. Patient is brought to the ER by EMS secondary to two-day history of weakness and increasing shortness of breath. He was given albuterol breathing treatment in route and is currently satting 94% on room air in no acute distress. He denies chest pain. He has no increase in swelling in his legs. Patient states that he was started on Lyrica recently for leg pain which caused a rash on his face. He reports not feeling well for the last couple of days along with increased cough as well but no reported fevers. In the emergency department the patient has a temperature of 100.3 and he is satting 94% on room air. He is in no acute distress at this time. Review of Systems Review of Systems All other ROS is negative unless otherwise stated in HPI Allergies Allergies Allergies Coded Allergies Type Severity Reaction Last Updated Verified levofloxacin Allergy Unknown Rash 05/27/19 Yes niacin Allergy Unknown 05/27/19 Yes Physical Exam Physical Exam See above Constitutional: Well developed, well nourished, no acute distress, non-toxic appearance. [] HENT: Normocephalic, atraumatic, bilateral external ears normal, oropharynx moist, no oral exudates, nose normal. [] Eyes: PERRLA, EOMI, conjunctiva normal, no discharge. [] Neck: Normal range of motion, no tenderness, supple, no stridor. [] Cardiovascular:Heart rate regular rhythm, no murmur, no edema [] Lungs & Thorax: Scattered rhonchi bilaterally with good air movement and no w heezing Abdomen: Bowel sounds normal, soft, no tenderness, no masses, no pulsatile masses. [] Skin: Warm, dry, no erythema, no rash. Poor skin turgor consistent with possible hypovolemia[] Back: No tenderness, no CVA tenderness. [] Extremities: No tenderness, no cyanosis, no clubbing, ROM intact, no edema. [] Neurologic: Alert and oriented X 3, normal motor function, normal sensory function, no focal deficits noted. [] Psychologic: Affect normal, judgement normal, mood normal. [] Current Patient Data Lab Results Laboratory Tests Test 07/06/19 09:25 White Blood Count 14.1 x10^3/uL Red Blood Count 4.23 x10^6/uL Hemoglobin 13.5 g/dL Hematocrit 41.7 % Mean Corpuscular Volume 99 fL Mean Corpuscular Hemoglobin 32 pg Mean Corpuscular Hemoglobin Concent 32 g/dL Red Cell Distribution Width 15.1 % Platelet Count 170 x10^3/uL Neutrophils (%) (Auto) 91 % Lymphocytes (%) (Auto) 3 % Monocytes (%) (Auto) 6 % Eosinophils (%) (Auto) 0 % Basophils (%) (Auto) 1 % Neutrophils # (Auto) 12.8 x10^3uL Lymphocytes # (Auto) 0.5 x10^3/uL Monocytes # (Auto) 0.8 x10^3/uL Eosinophils # (Auto) 0.0 x10^3/uL Basophils # (Auto) 0.1 x10^3/uL Prothrombin Time 12.3 SEC Prothromb Time International Ratio 1.2 Activated Partial Thromboplast Time 36 SEC Sodium Level 144 mmol/L Potassium Level 4.2 mmol/L Chloride Level 106 mmol/L Carbon Dioxide Level 26 mmol/L Anion Gap 12 Blood Urea Nitrogen 37 mg/dL Creatinine 1.9 mg/dL Estimated GFR (Cockcroft-Gault) 35.6 Glucose Level 169 mg/dL Lactic Acid Level 1.7 mmol/L Calcium Level 8.7 mg/dL Magnesium Level 1.7 mg/dL Troponin I Quantitative < 0.017 ng/mL CF-Qjd-M-Type Natriuretic Peptide 3174 pg/mL Influenza Type A (Rapid) Negative Influenza Type B (Rapid) Negative Current Medications Medications (Trade) Dose Ordered Sig/Levno Route PRN Reason Start Time Stop Time Status Last Admin Dose Admin Sodium Chloride 1,000 ml @ 500 mls/hr Q2H IV 07/06/19 09:23 07/06/19 11:22 07/06/19 09:23 EKG EKG Patient's EKG shows normal sinus rhythm with nonspecific ST changes in the lateral leads. Intervals are normal.[] Radiology/Procedures Radiology/Procedures Exam performed: One view chest. Indication: Shortness of air Date of Service: 07/06/2019 9:23 AM Comparison: One view chest from 06/14/2019. Single AP upright portable view chest findings: Cardiomediastinal silhouette is mildly enlarged, however stable. Pulmonary vascularity is mildly congested. Previous median sternotomy and bipolar pacemaker. No acute infiltrates, effusion or pneumothorax is detected. The bony structures are normal. Impression: Cardiomegaly with mild Central vascular congestion. Previous median sternotomy. Electronically signed by: Jayda Jameson MD (07/06/2019 10:09 AM) [facility][] Course & Med Decision Making Course & Med Decision Making Pertinent Labs and Imaging studies reviewed. (See chart for details) Patient is brought to ED by EMS for shortness of breath 2 days and weakness. We'll initiate workup including cardiac workup and also obtain blood cultures, lactic acid improved calcitonin as the patient does have an elevated temperature of 100.3. At this time he does not meet SIRS criteria but I will go ahead and initiate workup as previously stated. We'll start IV fluids at 500 mL per hour 1 L. Patient has an elevated white blood cell count of 14,000. His BNP is 3174 which is improved from April of 5462. His creatinine is 1.9 which is somewhat e levated; he has ranged from 1.4-2.2 we'll start Rocephin and Zithromax empirically. Vital signs remained stable otherwise. 1027: Patient's workup is complete at this time. I will speak to the hospitalist regarding admission for weakness, congestive heart failure, leukocytosis, COPD exacerbation. When I entered the room this last time the patient was sleeping and his oxygen saturation was 86% so he will be placed on 2 L nasal cannula. Dragon Disclaimer Dragon Disclaimer This electronic medical record was generated, in whole or in part, using a voice recognition dictation system. Departure Departure: Impression: Primary Impression: COPD exacerbation Additional Impressions: Congestive heart failure Weakness Leukocytosis Disposition: ADMITTED INPATIENT Admitting Physician: Martin Maldonado Condition: STABLE Referrals: MELISSA HART (PCP) Problem Qualifiers WENDY VALLES DO Jul 06, 2019 09:32
[2019-07-06 09:45] LABS: BASO # 0.1 x10^3/uL (0.0-0.2); BASO % 1 % (0-3); EOS % 0 % (0-3); HEMATOCRIT 41.7 % (39.0-53.0); HEMOGLOBIN 13.5 g/dL (13.0-17.5); LYMPH # 0.5 x10^3/uL (1.0-4.8); LYMPH % 3 % (24-48); MEAN CORPUSCULAR HEMOGLOBIN 32 pg (25-35); MEAN CORPUSCULAR HGB CONC 32 g/dL (31-37); MEAN CORPUSCULAR VOLUME 99 fL (79-100); MONO # 0.8 x10^3/uL (0.0-1.1); MONO % 6 % (0-9); NEUT # 12.8 x10^3uL (1.8-7.7); NEUT % 91 % (31-73); PLATELET COUNT 170 x10^3/uL (140-400); RED BLOOD COUNT 4.23 x10^6/uL (4.30-5.70); RED CELL DISTRIBUTION WIDTH 15.1 % (11.5-14.5); WHITE BLOOD COUNT 14.1 x10^3/uL (4.0-11.0)
[2019-07-06 09:56] LABS: CALCIUM 8.7 mg/dL (8.5-10.1); CREATININE 1.9 mg/dL (0.7-1.3); GFR 35.6; POTASSIUM 4.2 mmol/L (3.5-5.1)
[2019-07-06 10:04] LABS: INFLUENZA A PATIENT NEGATIVE (NEGATIVE); INFLUENZA B PATIENT NEGATIVE (NEGATIVE)
[2019-07-06 10:08] LABS: MAGNESIUM 1.7 mg/dL (1.8-2.4)
--- NOTE | 2019-07-06 10:12 | RAD ---
Exam performed: One view chest. Indication: Shortness of air Date of Service: 07/06/2019 9:23 AM Comparison: One view chest from 06/14/2019. Single AP upright portable view chest findings: Cardiomediastinal silhouette is mildly enlarged, however stable. Pulmonary vascularity is mildly congested. Previous median sternotomy and bipolar pacemaker. No acute infiltrates, effusion or pneumothorax is detected. The bony structures are normal. Impression: Cardiomegaly with mild Central vascular congestion. Previous median sternotomy. Electronically signed by: Jayda Jameson MD (07/06/2019 10:09 AM) [facility]
[2019-07-06] MEDS ORDERED: AZITHROMYCIN 500 MG in IV NORMAL SALINE 250ML 250 ML IV ONE (10:30)
[2019-07-06] MEDS ORDERED: IV NORMAL SALINE 250ML 250 ML ONE (10:33)
[2019-07-06] MEDS ORDERED: cefTRIAXone SODIUM 1 GM VIAL ONE (10:34)
[2019-07-06] MEDS ORDERED: IV NORMAL SALINE 50ML 50 ML ONE ×3 (10:34→10:37)
[2019-07-06] MEDS ORDERED: AZITHROMYCIN 500 MG VIAL. IV ONE (10:34)
[2019-07-06] MEDS ORDERED: ACETAMINOPHEN 325 MG TABLET PO PRN (10:45)
[2019-07-06] MEDS ORDERED: ONDANSETRON PF 4 MG/2 ML VIAL. IV PRN (10:45)
[2019-07-06] MEDS: IPRATRPIUM/ALBUTEROL 0.5/2.5MG 3 ML NEBU. NEB SCH ×3 (11:26→20:03)
[2019-07-06 11:54] VITALS: BP 116/67
--- NOTE | 2019-07-06 12:05 | EKG ---
[address] [address] Test Date: 2019-07-06 Test Time: 09:35:03 Pat Name: MELISSA DIAZ Department: Room: Gender: M [employer]: : [id number] Requested By: WENDY VALLES Order Number: [id number] Reading MD: Measurements Intervals [place] Rate: 70 P: 17 [place]: 148 QRS: 20 QRSD: 96 T: 96 QT: 418 QTc: 454 Interpretive Statements SINUS RHYTHM T ABNORMALITY IN LATERAL LEADS ABNORMAL ECG RI6.01 No previous ECG available for comparison
--- NOTE | 2019-07-06 14:09 | HP ---
ADMIT DATE: 07/06/2019 HISTORY OF PRESENT ILLNESS: The patient is a 64-year-old male patient who apparently attempted to stand up and fell backward in his bed and was unable to walk according to him, varying to the right side. He said that his Lyrica was increased recently, although he was not clear and apparently his could not help him and therefore, the ambulance was called in and was brought to the Emergency Room. He also complained of shortness of breath and feeling seeing things, spinning around, although he denied any nausea or vomiting. Denied any weakness in one side more than the other. He was evaluated in the Emergency Room, was found to have low-grade fever. His blood count showed leukocytosis. He was also slightly dehydrated. His BUN and creatinine are 37/1.9. His influenza A and B were negative. His chest x-ray showed that the cardiomediastinal silhouette is mildly enlarged; however, stable. Pulmonary vascularity is mildly congested. Previous median sternotomy, bipolar pacemaker. No acute infiltrate, effusion or pneumothorax detected. The patient was given IV fluid and also started on Zithromax and ceftriaxone and was admitted for further evaluation and treatment. PAST MEDICAL HISTORY: Significant for type 2 diabetes mellitus; longstanding hypertension; hyperlipidemia; coronary artery disease, status post myocardial infarction. In 2007, he underwent percutaneous coronary intervention and stent deployment x 9. He has also coronary artery bypass graft surgery. Had cardiac arrest x 2. He apparently had left upper extremity compartment syndrome that required fasciotomy. Has a lung nodule that is followed closely. Had acute kidney injury twice, once with the Department of compartment syndrome when he was in [place] for 2 months and 2 months ago when he was treated with IV fluids for acute kidney injury. Has benign prostatic hypertrophy by symptoms, TIA, chronic obstructive pulmonary disease, obstructive sleep apnea. He is currently on 2 liters of oxygen by nasal cannula. PAST SURGICAL HISTORY: Significant for PCI with stent deployment x 9, coronary artery bypass graft surgery, fasciotomy, L4-L5 laminectomy. Has also partial thyroidectomy. ALLERGIES: He is allergic to LEVOFLOXACIN AND NIACIN. FAMILY HISTORY: He has one sister who has coronary artery disease. His father in his 60s. Mother in her 60s due to congestive heart failure. SOCIAL HISTORY: He is , has 2 daughters alive, has one daughter when she was only 4 months old, one son because of congenital heart at age of 10 years and 1 son was electrocuted. He continued to smoke, does not drink alcohol or use any drugs. He is currently retired. 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 MEDICATIONS: He is currently on following medications: He is on albuterol sulfate 0.63 mg in 3 mL by nebulizer 4 times a day, ferrous sulfate 325 mg daily, Pradaxa 150 mg twice a day, Plavix 75 mg daily, amiodarone 200 mg daily, Ranexa 1000 mg twice a day, atorvastatin calcium 80 mg at bedtime, isosorbide mononitrate 60 mg daily. He is on carvedilol 12.5 mg twice a day, hydromorphone 4 mg 4 times a day. He is on oxycodone 5 mg twice a day, escitalopram oxalate 10 mg daily. He is on bumetanide 1 mg p.o. at noon and 2 mg in the morning. He is on Singulair 10 mg at bedtime, ranitidine for Zantac 300 mg daily, Protonix 40 mg daily. He is on Lantus insulin 14 units at bedtime. He is on Humalog 3 units before meals. He is on Jardiance 10 mg p.o. daily. He is on levothyroxine sodium 300 mcg once a day, and cyanocobalamin 500 mg, he takes 5 tablets p.o. daily. REVIEW OF SYSTEMS: As per history of present illness. PHYSICAL EXAMINATION: GENERAL: On arrival to the Emergency Room, the patient looked somewhat confused. There is no pallor, jaundice, cyanosis or thyromegaly. No jugular venous distention. No limb edema. VITAL SIGNS: His heart rate was 70, blood pressure was 105/52, temperature was 100.3, respiratory rate was 18 and oxygen saturation was 93%. HEAD, EYES, EARS, NOSE AND THROAT: Showed normocephalic, atraumatic. NECK: Supple. HEART: Showed normal first and second heart sounds. No gallop or murmur. CHEST: Clear to auscultation. No crepitation or rhonchi. ABDOMEN: Distended, soft, nontender. NEUROLOGIC: He is definitely confused, but without any obvious lateralizing sign. All his cranial nerves are intact. EXTREMITIES: He moves extremities without difficulty. He apparently was hallucinating, talking to people including his grandmother and his children who . LABORATORY DIAGNOSTIC DATA: While in the Emergency Room, his lab work done, which showed a white cell count 14,000, hemoglobin 13.5, hematocrit 42, MCV 99 and platelet count of 170,000. His serum sodium was 144, potassium 4.2, chloride 106, bicarbonate 26, BUN 37, creatinine 1.9, estimated GFR was 36 mL per minute. His glucose 169, calcium was 8.7, magnesium was 1.7. His beta natriuretic peptide was 3174. His prothrombin time was 12.3, INR 1.2, aPTT was 36. His influenza A and B were negative. ASSESSMENT AND PLAN: In summary, this is a 64-year-old male patient who came in with what seemed to be syncopal episode and acute confusional state. He has also low-grade fever and leukocytosis. His chest x-ray did not show any evidence of infiltrates or other pulmonary congestion. He has a multitude of medical problems, has also impaired kidney function, although on previous admission, his creatinine is usually 1.2-1.4. We did actually start him on IV antibiotic in the form of Rocephin and Zithromax and urine was sent for culture and sensitivity as well as blood for culture and sensitivity. We will check his orthostatics and we will consult Dr. Ridley to assist with his management. PAULINO MOHAN MD DR: CODY/leslee JOB#: [id number] / [id number]
[2019-07-06 15:19] VITALS: BP 111/64
[2019-07-06] MEDS ORDERED: NON FORMULARY ITEM (Albuterol Sulfate (Albuterol Sulfate Neb Soln) 1 VIAL) NEB PRN (17:15)
[2019-07-06] MEDS ORDERED: ALBUTEROL SULFATE 2.5 MG/3 ML NEBU. NEB PRN (17:45)
[2019-07-06] MEDS: HYDROmorphone 2 MG TABLET PO PRN (18:03)
[2019-07-06 18:40] VITALS: BP 126/70
--- NOTE | 2019-07-06 19:58 | EKG ---
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
[2019-07-06] MEDS: DABIGATRAN ETEXILATE 150 MG CAPSULE. PO SCH (20:20)
[2019-07-06] MEDS: RANOLAZINE 500 MG TAB.ER.12H PO SCH (20:21)
[2019-07-06] MEDS: ATORVASTATIN CALCIUM 20 MG TABLET PO SCH (20:21)
[2019-07-06] MEDS: LACTOBACILLUS RHAMNOSUS GG 1 CAPSULE. PO SCH (20:21)
[2019-07-06] MEDS: MONTELUKAST 10 MG TABLET. PO SCH (20:22)
[2019-07-06] MEDS: oxyCODONE IR 5 MG TABLET PO SCH (20:22)
[2019-07-06] MEDS: INSULIN GLARGINE SYRINGE. SQ SCH (20:23)
--- NOTE | 2019-07-06 21:27 | CONS ---
DATE OF CONSULTATION: 07/06/2019 NEUROLOGY CONSULT REFERRING PHYSICIAN: Dr. Maldonado. REASON FOR CONSULTATION: Severe weakness, difficulty to walk and tendency to fall. HISTORY OF PRESENT ILLNESS: This is a 64-year-old right-handed male, has had 2-day history of progressive weakness of the lower extremities and difficulty to walk along with shortness of breath. The patient denies chest pain, but has difficulty to walk due to severe exertional dyspnea. He denies any swelling of the lower extremities, recent head injuries or falls. The patient reported of recurrent dry cough in the last few days. He denies any fever or chills. In the Emergency Room, the patient was found to have a temperature of 100.3 and oxygen saturation 94% on room air. The patient is a resident of [facility] and he has been seen by Dr. Begum and treated him with Lyrica for possible peripheral neuropathy of the lower extremities. The patient, however, did not have any neurological evaluation before. Initial chest x-ray revealed mild cardiomegaly and mild central vascular congestions. PAST MEDICAL HISTORY: Quite extensive includes coronary artery disease, COPD, diabetes mellitus, hyperlipidemia, hypertension, hypothyroidism, kidney stone, myocardial infarction, radiation dermatitis and possible peripheral neuropathy in the lower extremities. History of obstructive sleep apnea, requiring oxygen supplements at night. The patient could not tolerate CPAP. Chronic lower back pain. Obesity. PAST SURGICAL HISTORY: Significant for coronary artery bypass graft, extensive surgery of the left lower extremity due to IV infiltration. Status post lumbosacral discectomy, colon cancer surgery with removal of polyps. FAMILY HISTORY: Positive for coronary artery disease, hypertension, hyperlipidemia. SOCIAL HISTORY: The patient is a smoker. He smokes 4 cigarettes daily. He denies alcohol drinking or illicit drug use. CURRENT HOME MEDICATIONS: Albuterol inhalers, amiodarone 200 mg p.o. daily, Lipitor 80 mg p.o. daily, bumetanide 1 mg daily, carvedilol 12.5 mg b.i.d., Plavix 75 mg p.o. daily, vitamin B12 p.o. daily, dabigatran 1 capsule 180 mg p.o. daily, Jardiance 10 mg p.o. daily, Lexapro 10 mg p.o. daily, ferrous sulfate 325 mg p.o. daily, hydromorphone (Dilaudid) 4 mg p.o. p.r.n. q.i.d. for pain, insulin Humalog, isosorbide 1 tablet 30 mg p.o. daily, levothyroxine ____ p.o. daily, Singulair 10 mg p.o. daily, oxycodone 5 mg b.i.d., pantoprazole 40 mg p.o. daily, ranitidine (Zantac) 300 mg of 2 tablets daily, ranolazine (Ranexa) 1000 mg b.i.d. ALLERGIES: LEVOFLOXACIN, NAC. REVIEW OF SYSTEMS: A 10-point review of system was performed as mentioned above in history of present illness. He complains of severe weakness of the lower extremities along with pain around the calves. PHYSICAL EXAMINATION: GENERAL: Obese male, not in acute distress. He weighs 110 kilos. VITAL SIGNS: Blood pressure 160/67, respiratory rate 20, pulse is 70 and regular, temperature 97.9, oxygen saturation is 98% on room air. HEENT: Normocephalic, atraumatic, otherwise unremarkable. NECK: Supple. Negative for carotid bruit, lymphadenopathy or thyromegaly. LUNGS: With diminished breath sounds bilaterally. CARDIOVASCULAR: Regular rate and rhythm, normal S1, S2. ABDOMEN: Soft. Bowel sounds positive. EXTREMITIES: Negative for cyanosis, clubbing or pitting edema. NEUROLOGICAL EXAMINATION: MENTAL STATUS: The patient is alert and oriented x 2. The speech is fluent. There is no language dysfunction. Memory, judgment, and abstracting thinking are fair. The patient denies hallucination or delusion. CRANIAL NERVES: Visual hooker are full. The pupils are reactive to light and accommodation. The extraocular movements are intact. There is no nystagmus. There is no facial motor or sensory deficit. Hearing is intact bilaterally. The palate is elevated symmetrically. Sternocleidomastoid muscles are powerful bilaterally. The patient shrugs his shoulders symmetrically and protrudes his tongue in the midline without fasciculation or atrophy. MOTOR: No focal muscle bulk was seen. The tone is normal. The strength is 4/5 throughout. The strength in the lower extremities is -4 throughout. SENSORY: Revealed diminished pinprick and light touch senses in patchy distributions and more prominent in stocking distributions. Deep tendon reflexes were symmetric and hypoactive with absent Achilles responses. GAIT: The stance is unsteady. Romberg sign is positive. LABORATORY DATA: CBC revealed white blood cells of 14.1 thousand, hemoglobin 13.5, hematocrit 41.7, platelet count 170,000. Chemistry revealed sodium of 144, potassium 4.2, chloride 106, CO2 of 26, BUN 37, creatinine 1.9, glucose 169, calcium is 8.7, magnesium is low at 1.7. BNP is high at 3174. Coagulation: PT is high at 12.3 and INR is 1.2, aPTT is 36. RADIOLOGICAL DATA: Chest x-ray as mentioned above in history of present illness. IMPRESSION: 1. Severe weakness and paresthesia of the lower extremities, probably multifactorial including peripheral neuropathy versus lumbosacral radiculopathy. 2. Coronary artery disease, status post coronary artery bypass graft, hypertension, hyperlipidemia, hypothyroidism, diabetes mellitus, chronic lower back pain and peripheral neuropathy in the lower extremities, renal failure. 3. Fever and leukocytosis, possible pneumonitis. RECOMMENDATIONS: 1. Head CT scan. 2. Treat underlying pneumonitis. 5. Gabapentin or Lyrica for neuropathic symptoms. The patient has been on Lyrica, but the dose is uncertain. He can start on 50 mg t.i.d. and increase it gradually as tolerated. If the patient had any side effects, we will start him on gabapentin. 7. The patient should be followed by Dr. Wood in [place] office on Sunday for EMG/NCS of the lower extremities. M Tea WOOD MD DR: ALEXANDRA/leslee JOB#: [id number] / [id number]
[2019-07-07] VITALS (7 sets, daily range): BP systolic 99–125; BP diastolic 58–73
[2019-07-07] MEDS: HYDROmorphone 2 MG TABLET PO PRN ×2 (00:07→07:55)
--- NOTE | 2019-07-07 04:02 | RAD ---
PQRS Compliance Statement: One or more of the following individualized dose reduction techniques were utilized for this examination: 1. Automated exposure control 2. Adjustment of the mA and/or kV according to patient size 3. Use of iterative reconstruction technique CT HEAD WITHOUT CONTRAST History: Altered mental status, fall, on pradaxa Comparison: None. Technique: Axial images are obtained of the head from the skull base through the vertex without IV contrast. Findings: No mass-effect, midline shift, extra-axial fluid collection, hemorrhage, or obvious acute infarction is identified. Basilar cisterns are patent. The ventricles and sulci are normal for patient age. There is minimal supratentorial white matter hypoattenuation. This is a nonspecific finding but is commonly due to chronic small vessel ischemic disease. Bone windows demonstrate no acute calvarial abnormality. The visualized paranasal sinuses are clear. Mastoid air cells are well aerated. IMPRESSION: No acute intracranial abnormality. Electronically signed by: Bjorn Bowers MD (07/07/2019 3:59 AM) [id number]
[2019-07-07 04:33] LABS: BASO # 0.1 x10^3/uL (0.0-0.2); BASO % 1 % (0-3); EOS # 0.1 x10^3/uL (0.0-0.7); EOS % 1 % (0-3); HEMATOCRIT 37.4 % (39.0-53.0); HEMOGLOBIN 12.1 g/dL (13.0-17.5); LYMPH # 1.4 x10^3/uL (1.0-4.8); LYMPH % 10 % (24-48); MEAN CORPUSCULAR HEMOGLOBIN 32 pg (25-35); MEAN CORPUSCULAR HGB CONC 33 g/dL (31-37); MEAN CORPUSCULAR VOLUME 99 fL (79-100); MONO # 0.9 x10^3/uL (0.0-1.1); MONO % 7 % (0-9); NEUT # 11.4 x10^3uL (1.8-7.7); NEUT % 82 % (31-73); PLATELET COUNT 151 x10^3/uL (140-400); RED BLOOD COUNT 3.79 x10^6/uL (4.30-5.70); WHITE BLOOD COUNT 13.9 x10^3/uL (4.0-11.0)
[2019-07-07 04:54] LABS: ALBUMIN 2.7 g/dL (3.4-5.0); ALBUMIN/GLOBULIN RATIO 0.7 (1.0-1.7); CALCIUM 8.7 mg/dL (8.5-10.1); CREATININE 1.9 mg/dL (0.7-1.3); GFR 35.6; POTASSIUM 4.7 mmol/L (3.5-5.1); TOTAL BILIRUBIN 0.7 mg/dL (0.2-1.0); TOTAL PROTEIN 6.8 g/dL (6.4-8.2)
[2019-07-07] MEDS: IPRATRPIUM/ALBUTEROL 0.5/2.5MG 3 ML NEBU. NEB SCH (04:57)
[2019-07-07] MEDS: LEVOTHYROXINE 100 MCG TABLET PO SCH (05:14)
[2019-07-07] MEDS: LACTOBACILLUS RHAMNOSUS GG 1 CAPSULE. PO SCH ×2 (07:54→21:02)
[2019-07-07] MEDS: RANOLAZINE 500 MG TAB.ER.12H PO SCH ×2 (07:55→21:02)
[2019-07-07] MEDS: DABIGATRAN ETEXILATE 150 MG CAPSULE. PO SCH ×2 (07:55→21:03)
[2019-07-07] MEDS: BUMETANIDE 1 MG TABLET PO SCH (07:56)
[2019-07-07] MEDS: CITALOPRAM 20 MG TABLET. PO SCH (07:56)
[2019-07-07] MEDS: FAMOTIDINE 20 MG TABLET PO SCH (07:56)
[2019-07-07] MEDS: PANTOPRAZOLE 40 MG TABLET. PO SCH (07:57)
[2019-07-07] MEDS: AMIODARONE HCL 200 MG TABLET PO SCH (07:57)
[2019-07-07] MEDS: oxyCODONE IR 5 MG TABLET PO SCH ×2 (07:57→21:03)
[2019-07-07] MEDS: CARVEDILOL 12.5 MG TABLET PO SCH ×2 (07:57→17:00)
[2019-07-07] MEDS: CYANOCOBALAMIN (VITAMIN B-12) 1,000 MCG TABLET. PO SCH (07:57)
[2019-07-07] MEDS: CLOPIDOGREL BISULFATE 75 MG TABLET PO SCH (07:57)
[2019-07-07] MEDS: FERROUS SULFATE 325 MG TABLET. PO SCH (07:58)
[2019-07-07] MEDS: INSULIN LISPRO 300 UNITS/3 ML VIAL. SQ SCH ×3 (08:11→17:29)
[2019-07-07] MEDS: NON FORMULARY ITEM (Empagliflozin (Jardiance) 10 MG) PO SCH (09:00)
[2019-07-07] MEDS ORDERED: ISOSORBIDE MONONITRATE ER 30 MG TAB.ER.24H PO SCH (09:00)
[2019-07-07] MEDS: AZITHROMYCIN 500 MG in IV NORMAL SALINE 250ML 250 ML IV SCH (09:34)
[2019-07-07] MEDS ORDERED: BUMETANIDE 1 MG TABLET PO SCH (12:00)
[2019-07-07] MEDS: ATORVASTATIN CALCIUM 20 MG TABLET PO SCH (21:02)
[2019-07-07] MEDS: MONTELUKAST 10 MG TABLET. PO SCH (21:02)
[2019-07-07] MEDS: INSULIN GLARGINE SYRINGE. SQ SCH (21:07)
--- NOTE | 2019-07-07 22:00 | PN ---
DATE: SUBJECTIVE: The patient is resting on the edge of the bed, continued to complain of being weak, dizzy and lightheaded and a tendency to fall. PHYSICAL EXAMINATION: GENERAL: When I examined him this afternoon, he was sitting on the edge of the bed, in no apparent distress. There was no pallor, jaundice, cyanosis or thyromegaly. No jugular venous distention. No limb edema. VITAL SIGNS: His heart rate was 70, blood pressure was 126/70, temperature was 98.3, respiratory rate 22 and oxygen saturation was 97% on 2 liters of oxygen. HEAD, EYES, EARS, NOSE AND THROAT: Showed normocephalic, atraumatic. NECK: Supple. HEART: Showed normal first and second heart sounds. No gallop, rub or murmur. CHEST: Shows central trachea, equal bilateral expansion, air entry, vesicular sounds with crepitation bilaterally, more on the right side posteriorly than the left side, I could not appreciate any rhonchi. ABDOMEN: Distended, soft, nontender. No guarding or rigidity. No organomegaly. All hernial orifices intact. Bowel sounds normal. NEUROLOGIC: He is awake, alert, responding somewhat better than yesterday. He is more awake and lucid. All his cranial nerves are intact. He moves extremities without difficulty. His intake was 1660, output was 650. LABORATORY DATA: His lab work this morning showed a white cell count of 13,900, hemoglobin 12, hematocrit 37, MCV 99 and platelet count of 151,000. Serum sodium was 140, potassium 4.7, chloride 105, bicarbonate 30, anion gap of 5, BUN 39, creatinine 1.9, estimated GFR was 35 mL per minute. His glucose was 108, calcium was 8.7. Total bilirubin, AST, ALT, alkaline phosphatase were normal. Total protein was 6.8, albumin 2.7. His prothrombin time, INR and aPTT are normal. His influenza A and B were negative. ASSESSMENT AND PLAN: This is a 64-year-old male patient who came with what seems to have; 1. Syncopal episode and acute confusional state. 2. Low-grade fever and leukocytosis. Chest x-ray was consistent with pneumonia as well as pulmonary congestion. 3. He has multiple other medical problems including chronic kidney disease. We did start him on IV antibiotic in the form of Rocephin and Zithromax. We will arrange for him to check his orthostatics today and will hold his Coreg tonight and perhaps have to cut down his diuretics and antihypertensive medication tomorrow. PAULINO MOHAN MD DR: CODY/leslee JOB#: [id number] / [id number]
[2019-07-08] MEDS ORDERED: ACETAMINOPHEN 325 MG TABLET PO PRN (01:15)
--- NOTE | 2019-07-08 01:48 | PN ---
DATE: 07/07/2019 SUBJECTIVE: The patient continued to complain of congestion of his chest. He denies headaches, visual disturbances, nausea, vomiting, chest pain, palpitation, or dizziness. OBJECTIVE: GENERAL: Obese female, not in acute distress. VITAL SIGNS: Blood pressure 111/70, respiratory rate 18, pulse is 70 and regular, temperature 97.1, oxygen saturation 99% on 3 liters by nasal cannula. HEENT: Normocephalic, atraumatic, otherwise unremarkable. NECK: Supple. Negative for carotid bruit, lymphadenopathy or thyromegaly. LUNGS: Clear to A and P. CARDIOVASCULAR: Regular rate and rhythm, normal S1, S2. There is no S3, S4 or murmurs. ABDOMEN: Soft. Bowel sounds positive. EXTREMITIES: Negative for cyanosis, clubbing or edema. NEUROLOGICAL EXAM: Mental Status: The patient is alert and oriented x 3. Speech is fluent. There is no language dysfunction. Memory, judgment, and abstracting thinking are normal. The patient denies hallucination or delusion. Cranial nerves are intact. No focal motor or sensory deficit. Deep tendon reflexes were asymmetric with absent Achilles responses. Sensory examination revealed diminished pinprick and light touch senses in patchy distributions mainly in the distal lower extremities. Gait: The stance is unsteady. Romberg sign is positive. LABORATORY DATA: CBC revealed white blood cells of 13.9 thousand, hemoglobin 12.1, hematocrit 37.4, platelet count 151,000. Chemistry revealed sodium of 140, potassium of 4.7, chloride 105, CO2 of 30, BUN 39, creatinine 1.9, glucose is 108, calcium is 8.7. Troponin level is normal. Initial nonenhanced head CT scan revealed no evidence of acute intracranial process. IMPRESSION: 1. Weakness and paresthesia of the lower extremities, probably due to multifactorial including peripheral neuropathy versus lumbosacral radiculopathy. 2. Coronary artery disease, status post coronary artery bypass graft, hypertension, hyperlipidemia, hypothyroidism, diabetes mellitus, chronic low back pain, peripheral neuropathy in the lower extremities, renal failure. 3. Leukocytosis, possible pneumonitis with abnormal chest x-ray consistent with possible pulmonary edema or early congestive heart failure. RECOMMENDATIONS: 1. Continue with current management initiated by Dr. Maldonado. 2. Lyrica versus gabapentin for neuropathic symptoms in the lower extremities. 3. We will follow up the patient in [place] office on an outpatient basis for further neurological evaluation. M Tea WOOD MD DR: ALEXANDRA/leslee JOB#: [id number] / [id number]
[2019-07-08 05:27] VITALS: BP 118/71
[2019-07-08] MEDS: LEVOTHYROXINE 100 MCG TABLET PO SCH (06:04)
[2019-07-08] MEDS: HYDROmorphone 2 MG TABLET PO PRN (06:07)
[2019-07-08 06:23] LABS: HEMATOCRIT 34.9 % (39.0-53.0); HEMOGLOBIN 11.4 g/dL (13.0-17.5); RED BLOOD COUNT 3.55 x10^6/uL (4.30-5.70); WHITE BLOOD COUNT 7.9 x10^3/uL (4.0-11.0)
[2019-07-08 06:40] LABS: ALBUMIN 2.8 g/dL (3.4-5.0); ALBUMIN/GLOBULIN RATIO 0.7 (1.0-1.7); CALCIUM 8.7 mg/dL (8.5-10.1); GFR 33.6; POTASSIUM 3.8 mmol/L (3.5-5.1); TOTAL BILIRUBIN 0.5 mg/dL (0.2-1.0); TOTAL PROTEIN 6.8 g/dL (6.4-8.2)
[2019-07-08] MEDS: RANOLAZINE 500 MG TAB.ER.12H PO SCH (08:31)
[2019-07-08] MEDS: BUMETANIDE 1 MG TABLET PO SCH (08:31)
[2019-07-08] MEDS: CITALOPRAM 20 MG TABLET. PO SCH (08:32)
[2019-07-08] MEDS: FAMOTIDINE 20 MG TABLET PO SCH (08:32)
[2019-07-08] MEDS: CARVEDILOL 12.5 MG TABLET PO SCH (08:32)
[2019-07-08] MEDS: AMIODARONE HCL 200 MG TABLET PO SCH (08:32)
[2019-07-08] MEDS: PANTOPRAZOLE 40 MG TABLET. PO SCH (08:32)
[2019-07-08] MEDS: DABIGATRAN ETEXILATE 150 MG CAPSULE. PO SCH (08:32)
[2019-07-08] MEDS: CLOPIDOGREL BISULFATE 75 MG TABLET PO SCH (08:33)
[2019-07-08] MEDS: FERROUS SULFATE 325 MG TABLET. PO SCH (08:33)
[2019-07-08] MEDS: CYANOCOBALAMIN (VITAMIN B-12) 1,000 MCG TABLET. PO SCH (08:33)
[2019-07-08] MEDS: LACTOBACILLUS RHAMNOSUS GG 1 CAPSULE. PO SCH (08:33)
[2019-07-08] MEDS: INSULIN LISPRO 300 UNITS/3 ML VIAL. SQ SCH ×2 (08:42→12:00)
[2019-07-08] MEDS: NON FORMULARY ITEM (Empagliflozin (Jardiance) 10 MG) PO SCH (09:00)
[2019-07-08] MEDS ORDERED: ISOSORBIDE MONONITRATE ER 30 MG TAB.ER.24H PO SCH (09:00)
[2019-07-08] MEDS: oxyCODONE IR 5 MG TABLET PO SCH (09:00)
[2019-07-08] MEDS: AZITHROMYCIN 500 MG in IV NORMAL SALINE 250ML 250 ML IV SCH (09:30)
--- NOTE | 2019-07-08 10:43 | PN ---
DATE: SUBJECTIVE: The patient denies any new medical or neurological complaints. He feels he is going back to his baseline. OBJECTIVE: GENERAL: Obese male, not in acute distress. VITAL SIGNS: Blood pressure 180/71, respiratory rate 18, pulse is 70 and regular, temperature is 97.1, oxygen saturation is 96% on 2 liters by nasal cannula. HEENT: Normocephalic, atraumatic, otherwise unremarkable. NECK: Supple. Negative for carotid bruit, lymphadenopathy or thyromegaly. LUNGS: Diminished breath sounds. No wheezing or rales. CARDIOVASCULAR: Regular rate and rhythm, normal S1, S2. ABDOMEN: Soft. Bowel sounds positive. EXTREMITIES: Negative for cyanosis, clubbing or pitting edema. NEUROLOGICAL: Normal mental status and intact cranial nerves. No focal motor or sensory deficit. The strength was 4/5 throughout. Sensory examination revealed diminished pinprick and light touch senses in patchy distributions in both lower extremities. Deep tendon reflexes were symmetric and hypoactive with absent Achilles responses. Gait is more steady and Romberg sign is still positive. LABORATORY DATA: CBC revealed white blood cells of 7.9 thousand, hemoglobin 11.4, hematocrit 34.9, platelet count 137,000. Chemistry revealed sodium of 137, potassium 3.8, chloride 102, CO2 of 27, BUN 42, creatinine 2 and glucose 154, calcium 8.7. IMPRESSION: 1. Status post syncope with acute encephalopathy - improved with negative CT scan for acute intracranial process. 2. Leukocytosis and fever, suggestive of pneumonitis - improved. 3. Multiple medical problems include generalized weakness, coronary artery disease, hypertension, hyperlipidemia, hypothyroidism, diabetes mellitus, chronic low back pain, peripheral neuropathy. 4. Renal failure. RECOMMENDATIONS: Continue with current management initiated by Dr. Maldonado. In case of discharge, we will follow the patient in [place] office. M Tea WOOD MD DR: ALEXANDRA/leslee JOB#: [id number] / [id number]
[2019-07-08 10:54] VITALS: BP 131/73
[2019-07-08] MEDS ORDERED: AZIT250T PO (13:41)
[2019-07-08] MEDS ORDERED: CEFD300C PO (13:41)
--- NOTE | 2019-07-08 14:16 | DS ---
DATE OF DISCHARGE: 07/08/2019 HOSPITAL COURSE: The patient is sitting on the edge of the bed, eating his lunch comfortably, in no apparent distress. On questioning him, he stated doing much better, has been up and about. Denied any complaint and expressed desire to be discharged home. PHYSICAL EXAMINATION: GENERAL: When I examined him this morning, he looked well and was clearly in no apparent respiratory distress. No pallor, jaundice, cyanosis or thyromegaly. No jugular venous distention. No lower limb edema. VITAL SIGNS: His heart rate was 75, blood pressure was 131/73, temperature was 98.3, respiratory rate was 20, and oxygen saturation was 92%. HEAD, EYES, EARS, NOSE AND THROAT: Showed normocephalic, atraumatic. NECK: Supple. HEART: Showed normal first and second heart sounds. No gallop or murmur. CHEST: Clear to auscultation. No crepitation or rhonchi. ABDOMEN: Distended, soft, nontender. No guarding or rigidity. No organomegaly. All hernial orifices intact. Bowel sounds normal. NEUROLOGIC: He is definitely awake, alert, responding appropriately. All his cranial nerves are intact. He moves extremities without difficulty, ambulates without assistance or assistive devices. His intake over the last 24 hours was 1870, output was 2100. LABORATORY DATA: This morning showed his white cell count was 7900, hemoglobin 11, hematocrit 34, MCV 98 and platelet count of 137,000. His chemistry showed a serum sodium 137, potassium 3.8, chloride 102, bicarbonate 27, anion gap of 8, BUN 42, creatinine 2, estimated GFR was 53 mL per minute. His glucose 154, calcium was 8.7. Total bilirubin, AST, ALT, alkaline phosphatase were normal. Total protein 6.8. DISCHARGE MEDICATIONS: He was discharged home to continue on following medications: Zithromax 250 mg once a day for 3 more days and cefdinir 300 mg once a day for 7 days, albuterol sulfate nebulized solution 0.63 mg per 3 mL vial by nebulizer 4 times a day, amiodarone 200 mg daily, atorvastatin calcium for Lipitor 80 mg p.o. at bedtime, bumetanide 1 mg at noon and 2 mg in the morning, carvedilol for Coreg 12.5 mg twice a day, Plavix 75 mg once a day, cyanocobalamin 500 mcg once a day, Pradaxa 150 mg twice a day, Jardiance 10 mg once a day, escitalopram oxalate 10 mg once a day, ferrous sulfate 325 mg daily, hydromorphone 4 mg 4 times a day and Lantus insulin 14 units at bedtime and Humalog insulin 3 units subcutaneously before meals, isosorbide mononitrate 60 mg daily, levothyroxine sodium 300 mcg once a day, montelukast 10 mg daily, oxycodone 5 mg twice a day, Protonix 40 mg daily, ranitidine 300 mg once a day and Ranexa 1000 mg twice a day. FINAL DISCHARGE DIAGNOSES: Syncopal episode with acute encephalopathy has resolved and pneumonia, responding to antibiotic treatment. He is afebrile, hemodynamically stable with normal white cell count. Other medical problems include coronary artery disease, hypertension, hyperlipidemia, hypothyroidism, type 2 diabetes, chronic low back pain and peripheral neuropathy as well as chronic renal failure. PAULINO MOHAN MD DR: CODY/leslee JOB#: [id number] / [id number]
== END 2019-07-08 14:10 | disposition home or self-care (01) | DRG 871 ==
LOC: ER 09:16 → 1 SOUTH 10:46
PROVIDERS: ADMIT Internal Medicine; ATTEND Internal Medicine
DX: A41.9 Sepsis, unspecified organism (principal); J18.9 Pneumonia, unspecified organism; I13.0 Hypertensive heart and chronic kidney disease with heart failure and stage 1 through stage 4 chronic kidney disease, or unspecified chronic kidney disease; J44.0 Chronic obstructive pulmonary disease with (acute) lower respiratory infection; G93.40 Encephalopathy, unspecified; F05 Delirium due to known physiological condition; J44.1 Chronic obstructive pulmonary disease with (acute) exacerbation; R55 Syncope and collapse; G89.29 Other chronic pain; E11.42 Type 2 diabetes mellitus with diabetic polyneuropathy; E78.5 Hyperlipidemia, unspecified; F17.210 Nicotine dependence, cigarettes, uncomplicated; I50.9 Heart failure, unspecified; N40.0 Benign prostatic hyperplasia without lower urinary tract symptoms; E78.00 Pure hypercholesterolemia, unspecified; E03.9 Hypothyroidism, unspecified; E86.0 Dehydration; N18.9 Chronic kidney disease, unspecified; E11.22 Type 2 diabetes mellitus with diabetic chronic kidney disease; I25.10 Atherosclerotic heart disease of native coronary artery without angina pectoris; R29.6 Repeated falls; W19.XXXA Unspecified fall, initial encounter; Y93.89 Activity, other specified; Y92.89 Other specified places as the place of occurrence of the external cause; Y99.8 Other external cause status; Z87.442 Personal history of urinary calculi; I25.2 Old myocardial infarction; Z95.5 Presence of coronary angioplasty implant and graft; Z95.1 Presence of aortocoronary bypass graft; Z86.74 Personal history of sudden cardiac arrest; Z86.73 Personal history of transient ischemic attack (TIA), and cerebral infarction without residual deficits; Z79.4 Long term (current) use of insulin; Z79.02 Long term (current) use of antithrombotics/antiplatelets; Z79.899 Other long term (current) drug therapy; Z88.8 Allergy status to other drugs, medicaments and biological substances; Z85.038 Personal history of other malignant neoplasm of large intestine; Z82.49 Family history of ischemic heart disease and other diseases of the circulatory system
CPT/HCPCS: 36415; 70450; 71045; 80048; 80053; 82550; 82947; 83605; 83735; 83874; 83880; 84145; 84484; 85025; 85027; 85610; 85730; 87040; 87077; 87205; 87804; 93005; 94640; 96365; 99285; J0456; J0696; J1815; J7050; J7620; J7030

== ENCOUNTER 2019-08-08 12:25 | Observation (INO) | payer MEDICARE, MEDICAID ==
[~2019-08-08] VITALS: Ht 182.9 cm; Wt 111.0 kg
[2019-08-08] MEDS: FAMOTIDINE 20 MG TABLET PO SCH (09:00)
[~2019-08-08 12:25] MED LIST changes: +AZIT250T PO; +CEFD300C PO
--- NOTE | 2019-08-08 12:42 | PHYS DOC ---
Past History Past Medical History: CHF, COPD, Diabetes, High Cholesterol, Hypertension, Hypothyroid, Kidney Stones, ME, Other Additional Past Medical Histor: radial dermatitis(back pain), mi '08 Past Surgical History: Coronary Bypass Surgery, Other Additional Past Surgical Histo: cardiac stents,l4-l5,debrideback,partial thyroidectomy,left arm/infiltratra Alcohol Use: None Drug Use: None Adult General Chief Complaint Chief Complaint: SYNCOPE HPI HPI Patient is a 64-year-old male with past medical history significant for diabetes, coronary artery disease, stent placement, COPD, congestive heart failure. He is sent over from his primary care physician's office secondary to low blood pressure and a syncopal episode this morning. Around 8:00 the patient had a syncopal episode while in the bathroom and was down for a short period of time. He did hit his head and he is on Pradaxa and Plavix. He went to his [facility] office and his blood pressure was 80/50 but he was mostly asymptomatic with a little bit of dizziness. He has a significant history of congestive heart failure and his clinical molecular geneticist who saw him earlier feels as though he may be over diuresed. Patient complains of right-sided rib pain and also has skin tears to the left forearm. Also of note the patient reportedly ta kes pain medication in the morning and he took 2 mg of Dilaudid and Percocet at 6:00 and fell at 8. Review of Systems Review of Systems All other systems were reviewed and found to be within normal limits, except as documented in this note. Allergies Allergies Allergies Coded Allergies Type Severity Reaction Last Updated Verified levofloxacin Allergy Unknown Rash 05/27/19 Yes niacin Allergy Unknown 05/27/19 Yes Physical Exam Physical Exam Constitutional: Well developed, well nourished, no acute distress, non-toxic appearance. [] HENT: Normocephalic, atraumatic, bilateral external ears normal, oropharynx dry no oral exudates, nose normal. [] Eyes: PERRLA, EOMI, conjunctiva normal, no discharge. [] Neck: Normal range of motion, no tenderness, supple, no stridor. [] Cardiovascular:Heart rate regular rhythm, no murmur [] Lungs & Thorax: Bilateral breath sounds clear to auscultation, tenderness to palpation right mid axillary ribs Abdomen: Bowel sounds normal, soft, no tenderness, no masses, no pulsatile masses. [] Skin: Warm, dry, no erythema, no rash. Skin tears to left forearm, poor skin turgor Back: No tenderness, no CVA tenderness. [] Extremities: No tenderness, no cyanosis, no clubbing, ROM intact, no edema. [] Neurologic: Alert and oriented X 3, normal motor function, normal sensory function, no focal deficits noted. [] Psychologic: Affect normal, judgement normal, mood normal. [] EKG EKG [] Patient's EKG reveals normal sinus rhythm with no ST changes and a heart rate of 70 with normal intervals. Radiology/Procedures Radiology/Procedures CT head and cervical spine without contrast History: Syncope Technique: Noncontrast CT imaging was performed of the head and cervical spine. Multiplanar reconstruction images are submitted. Exposure: One or more of the following individualized dose reduction techniques were utilized for this examination: 1. Automated exposure control 2. Adjustment of the mA and/or kV according to patient size 3. Use of iterative reconstruction technique. Head CT Comparison: None Findings: No acute extra-axial or parenchymal hemorrhage is identified. There is no significant intra-axial mass effect, midline shift, or extra-axial fluid collection. The babb-white differentiation of the major vascular territories is preserved. Ventricular size is proportionate to the sulcal spaces. There is mild fairly generalized supratentorial atrophy. There is ill-defined low-density of the supratentorial parenchyma bilaterally. The mastoid air cells and the visualized paranasal sinuses are aerated. There is no significant focal calvarial abnormality. There is atherosclerotic calcification of the carotid siphons bilaterally. Impression: 1. No acute intracranial abnormality is identified. There is generalized supratentorial atrophy. Ill-defined low-density of the supratentorial parenchyma is nonspecific, may be due to chronic microvascular ischemic disease. Cervical spine CT Comparison: None Findings: No acute cervical spine fracture is identified. Vertebral body stature and AP alignment are within normal limits. Atlanto-axial distance is within normal limits. There is appropriate alignment of lateral masses of C1 relative to C2. Occipital condylar-C1 relationship is maintained. There is fairly severe degenerative disc disease at C6-7 and C5-6, also spondylosis at these levels. There is degree of segmental ossification of posterior longitudinal ligament centered at C5-6 on the left. There is central canal stenosis at C5-6 estimated about 8 to 9 mm, on the order of 9 to 10 mm at C5-C6. There is also likely bulge at C4-5 with resultant central canal stenosis estimated about 9 to 10 mm. There is also disc osteophyte complex and bulge at C7-T1, likely borderline central canal stenosis. There is multilevel facet degenerative change, also degree of uncovertebral degenerative change. There is [id number] narrowing of the left C4-5 neural foramen, also moderate narrowing on the left at C6-7. There is atherosclerotic calcification of the carotid arteries in the neck bilaterally. Impression: 1. No acute cervical spine fracture is identified. 2. There is degenerative disc disease and spondylosis greatest C5-6 and C6-7, mild spinal stenosis.[] PA chest with right rib radiographs History: Fall, pain in lower ribs Comparison: 07/06/2019 Findings: Single view of the chest and 3 additional views of the right ribs are submitted. There again has been median sternotomy, fractures of most superior and inferior wires as seen previously. There is again triple lead left electronic cardiac device, also a proximal lead not attached to device as seen previously. Pericardial cardiac silhouette is somewhat enlarged although stable. There is no dependent pleural fluid, pneumothorax, or lobar infiltrate. No displaced rib fracture is identified by radiographs. Impression: 1. No acute radiographic abnormality is identified. Course & Med Decision Making Course & Med Decision Making Pertinent Labs and Imaging studies reviewed. (See chart for details) 1241: This patient seen for syncopal episode and low blood pressure. Will check basic labs and give a 500 cc normal saline bolus as the patient does appear slightly dehydrated. He will also receive a CT scan of his head and C-spine and obtain rib x-rays. 1412: This patient's work-up is complete at this time and is rather unremarkable. He has baseline renal insufficiency and baseline elevated BNP. He does appear dry clinically but his blood pressure has improved with IV fluid hydration. We will continue low maintenance fluids on the floor and admit for observation overnight. CT scans are unremarkable and x-ray is negative as well. Dragon Disclaimer Dragon Disclaimer This electronic medical record was generated, in whole or in part, using a voice recognition dictation system. Departure Departure: Impression: Primary Impression: Syncope Additional Impressions: Rib pain on left side Hypotension Skin tear of left forearm without complication Disposition: ADMITTED INPATIENT Admitting Physician: Martin Maldonado Condition: STABLE Referrals: MELISSA HART (PCP) Problem Qualifiers WENDY VALLES DO Aug 08, 2019 12:42
[2019-08-08] MEDS ORDERED: IV NORMAL SALINE 500ML 500 ML IV ONE (12:45)
[2019-08-08 12:55] LABS: BASO % 1 % (0-3); EOS # 0.2 x10^3/uL (0.0-0.7); EOS % 2 % (0-3); HEMOGLOBIN 13.1 g/dL (13.0-17.5); LYMPH # 1.2 x10^3/uL (1.0-4.8); LYMPH % 17 % (24-48); MEAN CORPUSCULAR HEMOGLOBIN 33 pg (25-35); MEAN CORPUSCULAR HGB CONC 34 g/dL (31-37); MEAN CORPUSCULAR VOLUME 97 fL (79-100); MONO # 0.7 x10^3/uL (0.0-1.1); MONO % 10 % (0-9); NEUT % 70 % (31-73); PLATELET COUNT 163 x10^3/uL (140-400); RED BLOOD COUNT 4.02 x10^6/uL (4.30-5.70); RED CELL DISTRIBUTION WIDTH 16.1 % (11.5-14.5)
[2019-08-08 13:06] LABS: CALCIUM 8.9 mg/dL (8.5-10.1); GFR 33.6; POTASSIUM 4.1 mmol/L (3.5-5.1)
--- NOTE | 2019-08-08 13:16 | RAD ---
PA chest with right rib radiographs History: Fall, pain in lower ribs Comparison: 07/06/2019 Findings: Single view of the chest and 3 additional views of the right ribs are submitted. There again has been median sternotomy, fractures of most superior and inferior wires as seen previously. There is again triple lead left electronic cardiac device, also a proximal lead not attached to device as seen previously. Pericardial cardiac silhouette is somewhat enlarged although stable. There is no dependent pleural fluid, pneumothorax, or lobar infiltrate. No displaced rib fracture is identified by radiographs. Impression: 1. No acute radiographic abnormality is identified. Electronically signed by: Frederick Hunter MD (08/08/2019 1:13 PM) [id number]
--- NOTE | 2019-08-08 13:37 | EKG ---
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
--- NOTE | 2019-08-08 13:47 | RAD ---
CT head and cervical spine without contrast History: Syncope Technique: Noncontrast CT imaging was performed of the head and cervical spine. Multiplanar reconstruction images are submitted. Exposure: One or more of the following individualized dose reduction techniques were utilized for this examination: 1. Automated exposure control 2. Adjustment of the mA and/or kV according to patient size 3. Use of iterative reconstruction technique. Head CT Comparison: None Findings: No acute extra-axial or parenchymal hemorrhage is identified. There is no significant intra-axial mass effect, midline shift, or extra-axial fluid collection. The babb-white differentiation of the major vascular territories is preserved. Ventricular size is proportionate to the sulcal spaces. There is mild fairly generalized supratentorial atrophy. There is ill-defined low-density of the supratentorial parenchyma bilaterally. The mastoid air cells and the visualized paranasal sinuses are aerated. There is no significant focal calvarial abnormality. There is atherosclerotic calcification of the carotid siphons bilaterally. Impression: 1. No acute intracranial abnormality is identified. There is generalized supratentorial atrophy. Ill-defined low-density of the supratentorial parenchyma is nonspecific, may be due to chronic microvascular ischemic disease. Cervical spine CT Comparison: None Findings: No acute cervical spine fracture is identified. Vertebral body stature and AP alignment are within normal limits. Atlanto-axial distance is within normal limits. There is appropriate alignment of lateral masses of C1 relative to C2. Occipital condylar-C1 relationship is maintained. There is fairly severe degenerative disc disease at C6-7 and C5-6, also spondylosis at these levels. There is degree of segmental ossification of posterior longitudinal ligament centered at C5-6 on the left. There is central canal stenosis at C5-6 estimated about 8 to 9 mm, on the order of 9 to 10 mm at C5-C6. There is also likely bulge at C4-5 with resultant central canal stenosis estimated about 9 to 10 mm. There is also disc osteophyte complex and bulge at C7-T1, likely borderline central canal stenosis. There is multilevel facet degenerative change, also degree of uncovertebral degenerative change. There is [id number] narrowing of the left C4-5 neural foramen, also moderate narrowing on the left at C6-7. There is atherosclerotic calcification of the carotid arteries in the neck bilaterally. Impression: 1. No acute cervical spine fracture is identified. 2. There is degenerative disc disease and spondylosis greatest C5-6 and C6-7, mild spinal stenosis. Electronically signed by: Frederick Hunter MD (08/08/2019 1:44 PM) [id number]
[2019-08-08] MEDS ORDERED: oxyCODONE/APAP 5/325 1 TAB TABLET PO ONE (14:15)
[2019-08-08 15:37] VITALS: BP 102/57
--- NOTE | 2019-08-08 15:37 | NUR ---
The patient, MELISSA DIAZ, 64 y/o, M admitted by PAULINO MOHAN MD, was given written information regarding hospital policies, unit procedures and contact persons. Valuables were checked and left in room. Patient ambulated from EMS cot to icu 6 bed without difficulty. Vitals stable upon admission to unit. Patient complaining of pain to right rib area, and requesting pain medication and a heating pad. Will notify Dr Mohan of admission to unit.
[2019-08-08 17:10] VITALS: BP 111/64
--- NOTE | 2019-08-08 17:30 | NUR ---
Spoke with physician, plan is to monitor vitals and call in regards to home medications.
[2019-08-08] MEDS: IV NORMAL SALINE 1,000ML 1,000 ML IV SCH (18:07)
[2019-08-08] MEDS ORDERED: PREG150C PO (18:36)
[2019-08-08] MEDS ORDERED: HYDR2TAB31 PO ×2 (18:36)
[2019-08-08] MEDS ORDERED: OXYC10TA PO (18:36)
[2019-08-08] MEDS ORDERED: OXYC5TAB4 PO (18:36)
--- NOTE | 2019-08-08 18:38 | NUR ---
Home medications verified with , DR mccurdy notified and reviewed home meds.
[2019-08-08] MEDS ORDERED: NON FORMULARY ITEM (Albuterol Sulfate (Albuterol Sulfate Neb Soln) 1 VIAL) NEB PRN (18:45)
[2019-08-08] MEDS ORDERED: DEXTROSE 50% 25 GM / 50ML DISP.SYRIN. IV PRN (18:45)
--- NOTE | 2019-08-08 19:13 | HP ---
ADMIT DATE: 08/08/2019 HISTORY OF PRESENT ILLNESS: The patient is a 64-year-old male patient, who came to the Emergency Room complaining, apparently had what seemed to be syncopal episode. He was sent over from his primary care physician's office secondary to low blood pressure and syncopal episode this morning and apparently around 8:00 in the morning, he went to the bathroom and had a syncopal episode while in the bathroom, was down for a short period of time. He did hit his head and he is on Pradaxa and Plavix. He was seen at his primary care physician's office and there the blood pressure was only 80/50, although he was asymptomatic with a little bit of dizziness. He has significant history of congestive heart failure and his auto service representative who saw him earlier feels that though he may be over diuresed. He did complain of right-sided rib pain and also skin tears on his left forearm. Also of note, the patient reportedly takes pain medication in the morning. He took 2 mg of Dilaudid and Percocet around 6 ____ around 8. He was evaluated in the Emergency Room and has had a CT scan of the head and neck. His blood pressure actually on arrival was 98/61. Unfortunately, I do not see any orthostatic hypotension. His lab work was mostly unremarkable. He has received 500 mL of normal saline and was admitted on continuous IV fluid. PAST MEDICAL HISTORY: Significant for type 2 diabetes mellitus, longstanding; hypertension; hyperlipidemia; coronary artery disease, status post myocardial infarction. In 2007, he underwent percutaneous coronary intervention and stent deployment x 9. He has also coronary artery bypass graft surgery. He had cardiac arrest x 2. He apparently had left upper extremity compartment syndrome that required fasciotomy, has a lung nodule that is followed closely, had acute kidney injury twice; once when the compartment syndrome when he was in [place] for 2 months and also about 2 months ago when he was treated with IV fluid for acute kidney injury. He is also known to have benign prostatic hypertrophy, TIA, chronic obstructive pulmonary disease, obstructive sleep apnea. He is currently on 2 liters of oxygen by nasal cannula. PAST SURGICAL HISTORY: Significant for PCI with stent deployment x 9, coronary artery bypass graft surgery, fasciotomy, L4-L5 laminectomy, he also has partial thyroidectomy. ALLERGIES: HE IS ALLERGIC TO LEVOFLOXACIN AND NIACIN. FAMILY HISTORY: He has one sister, who has coronary artery disease. His father in his 60s. Mother in her 60s due to congestive heart failure. SOCIAL HISTORY: He is , has 2 daughters alive and has one daughter who when she was only 4 months old, one son who because of congenital heart disease at the age of 10 years and one son who was electrocuted. He continued to smoke, does not drink alcohol or use recreational drugs. He is currently retired, has worked in the and multiple other jobs since he is retired from the [employer]. MEDICATIONS: He is currently on albuterol sulfate by nebulizer 4 times a day, ferrous sulfate 325 mg daily, Pradaxa 150 mg twice a day, Plavix 75 mg once a day, amiodarone 200 mg once a day, Ranexa 1000 mg twice a day, atorvastatin calcium 80 mg at bedtime, isosorbide mononitrate 60 mg once a day, carvedilol 12.5 mg twice a day; hydromorphone, he takes 2 mg 4 times a day; oxycodone 5 mg twice a day, escitalopram oxalate 10 mg daily, Bumex 1 mg at noon and Bumex 2 mg daily. He is on Singulair 10 mg once a day, ranitidine 150 mg daily, Protonix 40 mg once a day. He is on Lantus insulin 14 units at bedtime. He is also on Jardiance 10 mg once a day and Humalog insulin 3 units before meals. He is on levothyroxine for Synthroid 300 mcg once a day and cyanocobalamin 500 mcg takes 5 tablets once a day. PHYSICAL EXAMINATION: GENERAL: On arrival to the Emergency Room, he apparently looked well and was clearly in no apparent respiratory distress. No pallor, jaundice, cyanosis or thyromegaly. No jugular venous distention. No limb edema. VITAL SIGNS: His heart rate was 70, blood pressure was 98/61, temperature was 97.4, respiratory rate 20, and oxygen saturation was 98%. HEAD, EYES, EARS, NOSE AND THROAT: Normocephalic, atraumatic. NECK: Supple. HEART: Showed normal first and second heart sounds. No gallop or murmur. CHEST: Clear to auscultation. No crepitation or rhonchi. He has tenderness mostly on the right side. ABDOMEN: Distended, soft, nontender. No guarding or rigidity. No organomegaly. All hernial orifice intact. Bowel sounds normal. NEUROLOGIC: He is awake, alert, responding appropriately. All his cranial nerves are intact. EXTREMITIES: He moves extremities without difficulty. LABORATORY DATA: This afternoon showed a white cell count 7000, hemoglobin 13, hematocrit 39, MCV 97, and platelet count of 163,000. Serum sodium 140, potassium 4.1, chloride 104, bicarbonate 26, anion gap of 10, BUN 37, creatinine 2, estimated GFR was 33 mL per minute, his glucose was 159, calcium was 8.9, magnesium was 2 and his troponin was less than 0.026. His beta natriuretic peptide was ____. His prothrombin time, INR and aPTT are all slightly elevated. He did have right-sided rib view with chest x-ray, which showed there has been a median sternotomy fracture, more superior and inferior wires as seen previously. There is again triple lead, left electronic cardiac device, also proximally it is not attach to the device as seen previously, pericardial cardiac silhouette is somewhat enlarged, although stable. There is no dependent pleural effusion, pneumothorax or lobar infiltrate. No displaced rib fracture identified by radiographs. He has a CT scan of the head and pelvis, which showed no acute intracranial abnormality identified. There is generalized supratentorial atrophy, ill-defined low density of the supratentorial parenchyma is nonspecific, may be due to chronic microvascular ischemic disease. CT scan of the cervical spine showed no acute cervical spine fracture identified. There is degenerative disk disease and spondylosis, greatest at C5-C6 and C6-C7 with mild spinal stenosis. ASSESSMENT AND PLAN: The patient was admitted, was given 500 mL of normal saline bolus and continued on 75 mL per hour. We will repeat all his lab work again tomorrow. Check also his orthostatics and if he remains stable, he can be discharged home tomorrow. PAULINO MOHAN MD DR: CODY/leslee JOB#: [id number] / [id number]
[2019-08-08] MEDS ORDERED: ALBUTEROL SULFATE 2.5 MG/3 ML NEBU. NEB PRN (19:15)
[2019-08-08 19:30] VITALS: BP 88/51
[2019-08-08] MEDS: CARVEDILOL 12.5 MG TABLET PO SCH (19:30)
--- NOTE | 2019-08-08 19:44 | PDOC2 ---
CARDIAC CONSULT DATE OF CONSULT Date Of Consult DATE: 08/08/19 TIME: 19:44 CURRENT MEDICATIONS Current Medications Current Medications Sodium Chloride 500 ml @ 0 mls/hr 1X ONCE IV Last administered on 08/08/19at 13:35; Start 08/08/19 at 12:45; Stop 08/08/19 at 12:47; Status DC Oxycodone/ Acetaminophen (Percocet 5/325) 1 tab 1X ONCE PO Last administered on 08/08/19at 14:14; Start 08/08/19 at 14:15; Stop 08/08/19 at 14:16; Status DC Sodium Chloride 1,000 ml @ 75 mls/hr [id number] IV Last administered on 08/08/19at 18:07; Start 08/08/19 at 14:14; Stop 08/09/19 at 14:13 Amiodarone HCl (Cordarone) 200 mg DAILY PO ; Start 08/09/19 at 09:00 Carvedilol (Coreg) 12.5 mg BIDWMEALS PO ; Start 08/08/19 at 19:30 Clopidogrel Bisulfate (Plavix) 75 mg DAILY PO ; Start 08/09/19 at 09:00 Dabigatran (Pradaxa) 150 mg BID PO ; Start 08/08/19 at 21:00 Ferrous Sulfate (Feosol) 325 mg DAILY PO ; Start 08/09/19 at 09:00 Hydromorphone HCl (Dilaudid) 1 mg NOON PO ; Start 08/09/19 at 12:00 Montelukast Sodium (Singulair) 10 mg HS PO ; Start 08/08/19 at 21:00 Oxycodone HCl (Roxicodone) 5 mg NOON PO ; Start 08/09/19 at 12:00 Pantoprazole Sodium (Protonix) 40 mg DAILYAC PO ; Start 08/09/19 at 07:30 Non-Formulary Medication (Albuterol Sulfate (Albuterol Sulfate Neb Soln)) 1 vial QID PRN NEB SHORTNESS OF BREATH; Start 08/08/19 at 18:45; Stop 08/08/19 at 19:08; Status DC Atorvastatin Calcium (Lipitor) 80 mg QHS PO ; Start 08/08/19 at 21:00 Non-Formulary Medication (Empagliflozin (Jardiance)) 10 mg DAILY PO ; Start 08/09/19 at 09:00; Status UNV Citalopram Hydrobromide (CeleXA) 20 mg DAILY PO ; Start 08/09/19 at 09:00 Insulin Glargine (Lantus Syringe) 14 unit QHS SQ ; Start 08/08/19 at 21:00 Isosorbide Mononitrate (Imdur) 60 mg DAILY PO ; Start 08/09/19 at 09:00 Levothyroxine Sodium (Synthroid) 300 mcg DAILY06 PO ; Start 08/09/19 at 06:00 Oxycodone HCl (OxyCONTIN) 10 mg Q12HR PO ; Start 08/08/19 at 21:00 Pregabalin (Lyrica) 150 mg BID PO ; Start 08/08/19 at 21:00 Famotidine (Pepcid) 20 mg DAILY PO ; Start 08/08/19 at 09:00 Ranolazine (Ranexa) 1,000 mg BID PO ; Start 08/08/19 at 21:00 Insulin Human Lispro (HumaLOG) 0-7 UNITS TIDWMEALS SQ ; Start 08/09/19 at 08:00 Dextrose (Dextrose 50%-Water Syringe) 12.5 gm PRN Q15MIN PRN IV SEE COMMENTS; Start 08/08/19 at 18:45 Albuterol Sulfate (Ventolin) 2.5 mg PRN Q6HRS PRN NEB SHORTNESS OF BREATH; Start 08/08/19 at 19:15 Active Scripts Active Reported Lyrica (Pregabalin) 150 Mg Capsule 1 Cap PO BID Oxycodone Hcl Immed.release (Oxycodone Hcl) 5 Mg Tablet 5 Mg PO NOON Oxycodone Hcl Extend.release (Oxycodone Hcl) 10 Mg Tablet 1 Tab PO BID MDD 4 Tablet(s) 5 Days Dilaudid (Hydromorphone Hcl) 2 Mg Tablet 0.5 Tab PO NOON 5 Days Dilaudid (Hydromorphone Hcl) 2 Mg Tablet 1 Tab PO BID PRN MDD 2 Tablet(s) 5 Days Ranexa (Ranolazine) 1,000 Mg Tab.er.12h 1 Tab PO BID 30 Days Jardiance (Empagliflozin) 10 Mg Tablet 10 Mg PO DAILY Lantus Solostar (Insulin Glargine,Hum.rec.anlog) 100 Unit/1 Ml Insuln.pen 14 Unit SQ QHS Humalog (Insulin Lispro) 100 Unit/1 Ml Cartridge 0 SQ TIDWMEALS Albuterol Sulfate Neb Soln (Albuterol Sulfate) 0.63 Mg/3 Ml Vial.neb 1 Vial NEB QID PRN Synthroid (Levothyroxine Sodium) 300 Mcg Tablet 300 Mcg PO DAILY06 Escitalopram Oxalate 10 Mg Tablet 1 Tab PO DAILY Ferrous Sulfate 325 Mg Tablet 1 Tab PO DAILY Zantac (Ranitidine Hcl) 150 Mg Tablet 300 Mg PO DAILY Isosorbide Mononitrate Er (Isosorbide Mononitrate) 60 Mg Tab.er.24h 1 Tab PO DAILY Coreg (Carvedilol) 12.5 Mg Tablet 12.5 Mg PO BIDWMEALS Pradaxa (Dabigatran Etexilate Mesylate) 150 Mg Capsule 1 Cap PO BID Lipitor (Atorvastatin Calcium) 80 Mg Tablet 80 Mg PO QHS Amiodarone Hcl 200 Mg Tablet 1 Tab PO DAILY Montelukast Sodium Tablet (Montelukast Sodium) 10 Mg Tablet 10 Mg PO HS Plavix (Clopidogrel Bisulfate) 75 Mg Tablet 1 Tab PO DAILY 30 Days Bumetanide 2 Mg Tablet 1 Tab PO DAILY Protonix (Pantoprazole Sodium) 40 Mg Tablet.dr 1 Tab PO DAILY ALLERGIES Allergies: Coded Allergies: levofloxacin (Verified Allergy, Unknown, Rash, 05/27/19) niacin (Verified Allergy, Unknown, 05/27/19) VITALS Vital Signs Vital Signs Date Time Temp Pulse Resp B/P (MAP) Pulse Ox O2 Delivery O2 Flow Rate FiO2 08/08/19 18:28 Room Air 08/08/19 17:10 70 11 111/64 (80) 98 08/08/19 15:37 97.8 LABS LABS Laboratory Tests Test 08/08/19 12:40 White Blood Count 7.0 x10^3/uL (4.0-11.0) Red Blood Count 4.02 x10^6/uL (4.30-5.70) Hemoglobin 13.1 g/dL (13.0-17.5) Hematocrit 39.0 % (39.0-53.0) Mean Corpuscular Volume 97 fL (79-100) Mean Corpuscular Hemoglobin 33 pg (25-35) Mean Corpuscular Hemoglobin Concent 34 g/dL (31-37) Red Cell Distribution Width 16.1 % (11.5-14.5) Platelet Count 163 x10^3/uL (140-400) Neutrophils (%) (Auto) 70 % (31-73) Lymphocytes (%) (Auto) 17 % (24-48) Monocytes (%) (Auto) 10 % (0-9) Eosinophils (%) (Auto) 2 % (0-3) Basophils (%) (Auto) 1 % (0-3) Neutrophils # (Auto) 5.0 x10^3uL (1.8-7.7) Lymphocytes # (Auto) 1.2 x10^3/uL (1.0-4.8) Monocytes # (Auto) 0.7 x10^3/uL (0.0-1.1) Eosinophils # (Auto) 0.2 x10^3/uL (0.0-0.7) Basophils # (Auto) 0.0 x10^3/uL (0.0-0.2) Prothrombin Time 12.9 SEC (9.4-11.4) Prothromb Time International Ratio 1.2 (0.9-1.1) Activated Partial Thromboplast Time 47 SEC (23-33) Sodium Level 140 mmol/L (136-145) Potassium Level 4.1 mmol/L (3.5-5.1) Chloride Level 104 mmol/L (98-107) Carbon Dioxide Level 26 mmol/L (21-32) Anion Gap 10 (6-14) Blood Urea Nitrogen 37 mg/dL (8-26) Creatinine 2.0 mg/dL (0.7-1.3) Estimated GFR (Cockcroft-Gault) 33.6 Glucose Level 159 mg/dL (70-99) Calcium Level 8.9 mg/dL (8.5-10.1) Magnesium Level 2.0 mg/dL (1.8-2.4) Creatine Kinase 47 U/L (39-308) Creatine Kinase MB (Mass) 1.2 ng/mL (0.0-3.6) Creatine Kinase MB Relative Index 2.6 % (0-4) Troponin I Quantitative 0.026 ng/mL (0-0.055) GM-Gzh-H-Type Natriuretic Peptide 4880 pg/mL (0-124) DAY NEAL MD Aug 08, 2019 19:44
[2019-08-08 19:55] VITALS: BP_SYST 114; BP_SYST 88; BP_DIAS 51; BP_DIAS 58
[2019-08-08] MEDS: RANOLAZINE 500 MG TAB.ER.12H PO SCH (20:45)
[2019-08-08] MEDS: DABIGATRAN ETEXILATE 150 MG CAPSULE. PO SCH (20:45)
[2019-08-08] MEDS: PREGABALIN 75 MG CAPSULE PO SCH (20:46)
[2019-08-08] MEDS: oxyCODONE ER 10 MG TAB.ER.12H PO SCH (20:46)
[2019-08-08] MEDS ORDERED: INSULIN GLARGINE SYRINGE. SQ SCH (21:00)
[2019-08-08] MEDS ORDERED: ATORVASTATIN CALCIUM 20 MG TABLET PO SCH (21:00)
[2019-08-08] MEDS ORDERED: MONTELUKAST 10 MG TABLET. PO SCH (21:00)
[2019-08-08 22:40] VITALS: BP 113/56
[2019-08-09] MEDS ORDERED: LEVOTHYROXINE 150 MCG TABLET PO SCH (06:00)
[2019-08-09] MEDS ORDERED: PANTOPRAZOLE 40 MG TABLET. PO SCH (07:30)
[2019-08-09] MEDS: CARVEDILOL 12.5 MG TABLET PO SCH (08:00)
[2019-08-09] MEDS ORDERED: INSULIN LISPRO 300 UNITS/3 ML VIAL. SQ SCH (08:00)
[2019-08-09 08:29] LABS: ALBUMIN 2.7 g/dL (3.4-5.0); ALBUMIN/GLOBULIN RATIO 0.8 (1.0-1.7); CALCIUM 8.3 mg/dL (8.5-10.1); CREATININE 1.6 mg/dL (0.7-1.3); GFR 43.5; TOTAL BILIRUBIN 0.4 mg/dL (0.2-1.0); TOTAL PROTEIN 6.2 g/dL (6.4-8.2)
[2019-08-09 09:00] VITALS: BP 120/79
[2019-08-09] MEDS ORDERED: ISOSORBIDE MONONITRATE ER 30 MG TAB.ER.24H PO SCH (09:00)
[2019-08-09] MEDS ORDERED: NON FORMULARY ITEM (Empagliflozin (Jardiance) 10 MG) PO SCH (09:00)
[2019-08-09] MEDS: oxyCODONE ER 10 MG TAB.ER.12H PO SCH (09:00)
[2019-08-09] MEDS: FAMOTIDINE 20 MG TABLET PO SCH (09:00)
[2019-08-09] MEDS ORDERED: FERROUS SULFATE 325 MG TABLET. PO SCH (09:00)
[2019-08-09] MEDS: RANOLAZINE 500 MG TAB.ER.12H PO SCH (09:00)
[2019-08-09] MEDS ORDERED: AMIODARONE HCL 200 MG TABLET PO SCH (09:00)
[2019-08-09] MEDS ORDERED: CLOPIDOGREL BISULFATE 75 MG TABLET PO SCH (09:00)
[2019-08-09] MEDS: DABIGATRAN ETEXILATE 150 MG CAPSULE. PO SCH (09:00)
[2019-08-09] MEDS: PREGABALIN 75 MG CAPSULE PO SCH (09:00)
[2019-08-09] MEDS ORDERED: CITALOPRAM 20 MG TABLET. PO SCH (09:00)
[2019-08-09] MEDS: IV NORMAL SALINE 1,000ML 1,000 ML IV SCH (11:14)
--- NOTE | 2019-08-09 11:46 | NUR ---
PT'S DISCHARGE PAPERWORK DISCUSSED WITH PT, PT SIGNED PAPERWORK. PT IV D/C AND DRESSING PLACED. NO BLEEDING NOTED. PT'S DRESSING ON WOUND TO LEFT ARM REPLACED. PT SENT HOME WITH SUPPLIES NEEDED. PT'S FAMILY MEMBER AT BEDSIDE READY TO WALK PATIENT TO CAR.
[2019-08-09] MEDS ORDERED: oxyCODONE IR 5 MG TABLET PO SCH (12:00)
[2019-08-09] MEDS ORDERED: HYDROmorphone 2 MG TABLET PO SCH (12:00)
--- NOTE | 2019-08-09 12:00 | DS ---
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 His blood pressure was only 80 systolic and he was sent to the Emergency Room where he was evaluated and was given a bolus of IV fluid, was admitted to the ICU to continue the IV fluid. I held his diuretics and when I saw him this morning, he denied any complaint, in particular denied any dizziness, lightheadedness, denied any chest pain or shortness of breath. We checked his orthostatic and his blood pressure remained stable with no evidence of postural hypertension. His lab work showed that his BUN and creatinine are down to 30 and 1.6 and therefore, a decision was made to discharge him home to continue on all his current medications and to follow with his prospecting observer and primary care physician. PHYSICAL EXAMINATION: GENERAL: When I saw him this morning, he was sitting in his recliner, in no apparent respiratory distress. There is no pallor, jaundice, cyanosis or thyromegaly. No jugular venous distention. No limb edema. VITAL SIGNS: His heart rate was 70, blood pressure was 113/56, temperature was 98, respiratory rate was 16, and oxygen saturation was 93%. HEAD, EYES, EARS, NOSE AND THROAT: Showed normocephalic, atraumatic. NECK: Supple. HEART: Showed normal first and second heart sounds. No gallop, rub or murmur. CHEST: Clear to auscultation. No crepitation or rhonchi. ABDOMEN: Distended, soft, nontender. NEUROLOGIC: He is awake, alert, responding appropriately. All cranial nerves are intact. He moves extremities without difficulty. He ambulates with a cane. LABORATORY DATA: This morning showed a white cell count 7000, hemoglobin 13, hematocrit 39, MCV 97, and platelet count of 163,000. His chemistry this morning showed a serum sodium 140, potassium 4, chloride 106, bicarbonate 26, anion gap of 8, BUN 30, creatinine was 1.6, estimated GFR was 44 mL per minute, his glucose 109, calcium was 8.3. Total bilirubin, AST, ALT, alkaline phosphatase were normal. Total protein was 6.2, albumin was 2.7. DISCHARGE MEDICATIONS: He was discharged to continue on his current medications: Albuterol sulfate 0.63 mg 3 mL vial by nebulizer 4 times a day, amiodarone 200 mg once a day, atorvastatin calcium for Lipitor 80 mg at bedtime, bumetanide 2 mg daily, carvedilol 12.5 mg twice a day, Plavix 75 mg once a day, Pradaxa 150 mg p.o. b.i.d., Jardiance 10 mg daily, escitalopram oxalate 10 mg daily, ferrous sulfate 325 mg daily, hydromorphone. He takes 2 mg twice a day and hydromorphone 2 mg at noon. He is on Lantus 14 units at bedtime and Humalog insulin as insulin sliding scale, isosorbide mononitrate 60 mg once a day, levothyroxine sodium 300 mcg once a day, Singulair 10 mg once a day, oxycodone extended release 10 mg twice a day and oxycodone immediate release 5 mg at noon. He is on Protonix 40 mg daily, Lyrica 150 mg twice a day, ranitidine 300 mg daily, Ranexa 1000 mg twice a day. FINAL DISCHARGE DIAGNOSES: 1. Syncopal episode, most likely due to dehydration and over diuresis, resolved. The patient has had no postural hypertension, has been up and about without difficulty. The patient has a multitude of medical problems including type 2 diabetes mellitus, longstanding hypertension, hyperlipidemia, coronary artery disease, status post myocardial infarction in 2007, he underwent percutaneous coronary intervention stent deployment. He also has coronary artery bypass graft surgery and he had a history of left upper extremity compartment syndrome that required fasciotomy. Has benign prostatic hypertrophy, chronic obstructive pulmonary disease, obstructive sleep apnea and chronic hypoxic respiratory failure for which he is on oxygen 2 liters by nasal cannula. The patient was advised to follow with his primary physician as well as his prospecting observer. PAULINO MOHAN MD DR: CODY/leslee JOB#: [id number] / [id number]
[2019-08-09 14:16] LABS: HEMATOCRIT 35.9 % (39.0-53.0); HEMOGLOBIN 12.1 g/dL (13.0-17.5); RED BLOOD COUNT 3.72 x10^6/uL (4.30-5.70); RED CELL DISTRIBUTION WIDTH 16.2 % (11.5-14.5); WHITE BLOOD COUNT 5.8 x10^3/uL (4.0-11.0)
== END 2019-08-09 13:01 | disposition home or self-care (01) ==
LOC: ER 12:25 → ICU 15:25
PROVIDERS: ADMIT Internal Medicine; ATTEND Internal Medicine
DX: R55 Syncope and collapse (principal); S51.812A Laceration without foreign body of left forearm, initial encounter; I95.9 Hypotension, unspecified; E11.9 Type 2 diabetes mellitus without complications; I11.0 Hypertensive heart disease with heart failure; I50.9 Heart failure, unspecified; E78.5 Hyperlipidemia, unspecified; I25.10 Atherosclerotic heart disease of native coronary artery without angina pectoris; Z95.1 Presence of aortocoronary bypass graft; I25.2 Old myocardial infarction; J44.9 Chronic obstructive pulmonary disease, unspecified; G47.33 Obstructive sleep apnea (adult) (pediatric); J96.11 Chronic respiratory failure with hypoxia; E03.9 Hypothyroidism, unspecified; R07.81 Pleurodynia; W19.XXXA Unspecified fall, initial encounter; Y93.89 Activity, other specified; Y92.002 Bathroom of unspecified non-institutional (private) residence as the place of occurrence of the external cause; Z86.73 Personal history of transient ischemic attack (TIA), and cerebral infarction without residual deficits; Z79.899 Other long term (current) drug therapy; Z86.74 Personal history of sudden cardiac arrest; Z87.442 Personal history of urinary calculi; Z95.5 Presence of coronary angioplasty implant and graft; Z79.01 Long term (current) use of anticoagulants
CPT/HCPCS: 36415; 70450; 71101; 72125; 80048; 80053; 82553; 82947; 83735; 83880; 84484; 85025; 85027; 85610; 85730; 93005; 96360; 99285; G0378; J1815; J7040; G0379; J7030

== ENCOUNTER 2019-08-25 12:05 | Emergency (ER) | payer MEDICARE, MEDICAID ==
[~2019-08-25] VITALS: Ht 182.9 cm; Wt 111.0 kg
[~2019-08-25 12:05] MED LIST changes: +HYDR2TAB31 PO; +OXYC10TA PO; +OXYC5TAB4 PO; +PREG150C PO
[2019-08-25 12:08] VITALS: BP 114/66
--- NOTE | 2019-08-25 12:21 | EKG ---
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
[2019-08-25 12:46] LABS: BASO % 0 % (0-3); EOS # 0.1 x10^3/uL (0.0-0.7); EOS % 2 % (0-3); HEMATOCRIT 38.9 % (39.0-53.0); HEMOGLOBIN 13.3 g/dL (13.0-17.5); LYMPH # 1.2 x10^3/uL (1.0-4.8); LYMPH % 18 % (24-48); MEAN CORPUSCULAR HEMOGLOBIN 33 pg (25-35); MEAN CORPUSCULAR HGB CONC 34 g/dL (31-37); MEAN CORPUSCULAR VOLUME 96 fL (79-100); MONO # 0.5 x10^3/uL (0.0-1.1); MONO % 7 % (0-9); NEUT # 4.5 x10^3uL (1.8-7.7); NEUT % 72 % (31-73); PLATELET COUNT 154 x10^3/uL (140-400); RED BLOOD COUNT 4.03 x10^6/uL (4.30-5.70); RED CELL DISTRIBUTION WIDTH 16.3 % (11.5-14.5); WHITE BLOOD COUNT 6.3 x10^3/uL (4.0-11.0)
[2019-08-25 12:52] LABS: CALCIUM 8.9 mg/dL (8.5-10.1); CREATININE 2.3 mg/dL (0.7-1.3); GFR 28.6; POTASSIUM 4.1 mmol/L (3.5-5.1)
[2019-08-25 12:58] LABS: ALBUMIN 3.1 g/dL (3.4-5.0); ALBUMIN/GLOBULIN RATIO 0.8 (1.0-1.7); TOTAL BILIRUBIN 0.5 mg/dL (0.2-1.0)
--- NOTE | 2019-08-25 12:58 | RAD ---
EXAM: CHEST AP ONLY, CT HEAD AND CERVICAL SPINE WO INDICATION: Fall. TECHNIQUE: Single AP view COMPARISON: Chest x-ray 06/14/2019 FINDINGS: Moderate cardiomegaly shows slight interval improvement. Left chest multichamber pacemaker is present. Post-CABG changes are redemonstrated. The great vessels appear unremarkable. There is no hilar or mediastinal mass. The lungs are clear. There is no pleural effusion or pneumothorax. There are no significant osseous abnormalities. IMPRESSION: Slight improvement in cardiomegaly with no superimposed active cardiopulmonary disease. EXAM: CT Head without IV contrast INDICATION: Fall TECHNIQUE: Multi-detector row CT images were obtained of the head without the use of IV contrast. All CT scans performed at this facility utilize dose optimization techniques as appropriate to the exam, including the following: Automated exposure control and adjustment of the mA and/or KV according to patient size (this includes techniques or standardized protocols for targeted exams where dose is indication/reason for exam). COMPARISON: 07/06/[address], 08/08/[address] FINDINGS: BRAIN PARENCHYMA: No evidence of acute intraparenchymal hemorrhage or infarct. Generalized parenchymal volume loss and white matter low density compatible chronic ischemic microvascular disease is again demonstrated. VENTRICLES & EXTRA-AXIAL SPACES: Ventricles are within normal limits. Basilar cisterns are patent. No pathologic extra-axial fluid collection or mass. Intracranial vascular calcifications are again evident most conspicuous in the left V4 vertebral artery. ORBITS: Orbital contents show evidence of right cataract surgery but otherwise are unremarkable. SINUSES: Visualized paranasal sinuses and mastoid air cells are clear. OSSEOUS & SOFT TISSUES: Calvarium and skull base are intact. Mild left suboccipital soft tissues stranding is noted. IMPRESSION: No acute intracranial pathology. EXAM: CT Cervical Spine without IV contrast INDICATION: Fall TECHNIQUE: Multi-detector row CT images were obtained through the cervical spine without the use of IV contrast. Post-processing sagittal and coronal reconstructed images were obtained for interpretation. All CT scans performed at this facility utilize dose optimization techniques as appropriate to the exam, including the following: Automated exposure control and adjustment of the mA and/or KV according to patient size (this includes techniques or standardized protocols for targeted exams where dose is indication/reason for exam). COMPARISON: None FINDINGS: CRANIOCERVICAL JUNCTION: Unremarkable. ALIGNMENT: Alignment is within normal limits. OSSEOUS: No evidence of fracture or bone destruction. DISC SPACES: Focal disc ossification along the ventral epidural space at C5-C6 results in mild central canal narrowing. The disc space is narrowed and anterior osteophytic spurs are also noted.. FACET JOINTS: Unremarkable. SPINAL CANAL: Mild narrowing at C5-C6. Otherwise unremarkable. NEUROFORAMINA: Unremarkable. SOFT TISSUES: Unremarkable. IMPRESSION: No acute traumatic findings in the cervical spine with degenerative changes noted, most conspicuously at C5-C6. Electronically signed by: Veronica Ellsworth MD (08/25/2019 12:55 PM) [id number]
--- NOTE | 2019-08-25 13:10 | PHYS DOC ---
Past History Past Medical History: CHF, COPD, Diabetes, High Cholesterol, Hypertension, Hypothyroid, Kidney Stones, NC, Other Additional Past Medical Histor: radial dermatitis(back pain), mi '08 Past Surgical History: Coronary Bypass Surgery, Other Additional Past Surgical Histo: cardiac stents,l4-l5,debrideback,partial thyroidectomy,left arm/infiltratra Alcohol Use: None Drug Use: None Adult General Chief Complaint Chief Complaint: SYNCOPE HPI HPI 64-year-old male presents via EMS after fall at home. The patient was standing up after going to the bathroom and an oscillating he remembers. He woke up lying in the bathtub. He has mid cervical pain and a headache. He was not initially in a cervical collar. Patient tells me that he has had syncopal episodes about 4 times in the last month. He has not been worked up for these. He denies fever chills. He has been feeling normal. He does report feeling his pacemaker fire some today. His defibrillator has not gone off. Review of Systems Review of Systems Constitutional: Denies fever or chills [] Eyes: Denies change in visual acuity, redness, or eye pain [] HENT: Denies nasal congestion or sore throat [] Respiratory: Denies cough or shortness of breath [] Cardiovascular: No additional information not addressed in HPI [] GI: Denies abdominal pain, nausea, vomiting, bloody stools or diarrhea [] : Denies dysuria or hematuria [] Musculoskeletal: Neck pain [] Integument: Denies rash or skin lesions [] Neurologic: Syncope, headache. Denies focal weakness or sensory changes [] Endocrine: Denies polyuria or polydipsia [] All other systems were reviewed and found to be within normal limits, except as documented in this note. Allergies Allergies Allergies Coded Allergies Type Severity Reaction Last Updated Verified levofloxacin Allergy Unknown Rash 05/27/19 Yes niacin Allergy Unknown 05/27/19 Yes Physical Exam Physical Exam Constitutional: Well developed, well nourished, no acute distress, non-toxic appearance. [] HENT: Normocephalic, atraumatic, bilateral external ears normal, oropharynx moist, no oral exudates, nose normal. [] Eyes: PERRLA, EOMI, conjunctiva normal, no discharge. [] Neck: Normal range of motion, no tenderness, supple, no stridor. [] Cardiovascular:Heart rate regular rhythm, no murmur [] Lungs & Thorax: Bilateral breath sounds clear to auscultation [] Abdomen: Bowel sounds normal, soft, no tenderness, no masses, no pulsatile masses. [] Skin: Warm, dry, no erythema, no rash. [] Back: No tenderness, no CVA tenderness. [] Extremities: No tenderness, no cyanosis, no clubbing, ROM intact, no edema. [] Neurologic: Alert and oriented X 3, normal motor function, normal sensory function, no focal deficits noted. [] Psychologic: Affect normal, judgement normal, mood normal. [] Current Patient Data Vital Signs Vital Signs Date Time Temp Pulse Resp B/P (MAP) Pulse Ox O2 Delivery O2 Flow Rate FiO2 08/25/19 12:08 97.9 69 16 114/66 (82) 99 Room Air Lab Results Laboratory Tests Test 08/25/19 12:27 White Blood Count 6.3 x10^3/uL (4.0-11.0) Red Blood Count 4.03 x10^6/uL (4.30-5.70) L Hemoglobin 13.3 g/dL (13.0-17.5) Hematocrit 38.9 % (39.0-53.0) L Mean Corpuscular Volume 96 fL (79-100) Mean Corpuscular Hemoglobin 33 pg (25-35) Mean Corpuscular Hemoglobin Concent 34 g/dL (31-37) Red Cell Distribution Width 16.3 % (11.5-14.5) H Platelet Count 154 x10^3/uL (140-400) Neutrophils (%) (Auto) 72 % (31-73) Lymphocytes (%) (Auto) 18 % (24-48) L Monocytes (%) (Auto) 7 % (0-9) Eosinophils (%) (Auto) 2 % (0-3) Basophils (%) (Auto) 0 % (0-3) Neutrophils # (Auto) 4.5 x10^3uL (1.8-7.7) Lymphocytes # (Auto) 1.2 x10^3/uL (1.0-4.8) Monocytes # (Auto) 0.5 x10^3/uL (0.0-1.1) Eosinophils # (Auto) 0.1 x10^3/uL (0.0-0.7) Basophils # (Auto) 0.0 x10^3/uL (0.0-0.2) Sodium Level 135 mmol/L (136-145) L Potassium Level 4.1 mmol/L (3.5-5.1) Chloride Level 100 mmol/L (98-107) Carbon Dioxide Level 27 mmol/L (21-32) Anion Gap 8 (6-14) Blood Urea Nitrogen 43 mg/dL (8-26) H Creatinine 2.3 mg/dL (0.7-1.3) H Estimated GFR (Cockcroft-Gault) 28.6 BUN/Creatinine Ratio 19 (6-20) Glucose Level 132 mg/dL (70-99) H Calcium Level 8.9 mg/dL (8.5-10.1) Total Bilirubin 0.5 mg/dL (0.2-1.0) Aspartate Amino Transferase (AST) 18 U/L (15-37) Alanine Aminotransferase (ALT) 22 U/L (16-63) Alkaline Phosphatase 160 U/L (46-116) H Troponin I Quantitative < 0.017 ng/mL (0-0.055) Total Protein 7.0 g/dL (6.4-8.2) Albumin 3.1 g/dL (3.4-5.0) L Albumin/Globulin Ratio 0.8 (1.0-1.7) L EKG EKG Intermittent pacing, rate 70, normal axis, no ST elevation or depression. [] Radiology/Procedures Radiology/Procedures [] Impressions: EXAM: CHEST AP ONLY, CT HEAD AND CERVICAL SPINE WO INDICATION: Fall. TECHNIQUE: Single AP view COMPARISON: Chest x-ray 06/14/2019 FINDINGS: Moderate cardiomegaly shows slight interval improvement. Left chest multichamber pacemaker is present. Post-CABG changes are redemonstrated. The great vessels appear unremarkable. There is no hilar or mediastinal mass. The lungs are clear. There is no pleural effusion or pneumothorax. There are no significant osseous abnormalities. IMPRESSION: Slight improvement in cardiomegaly with no superimposed active cardiopulmonary disease. EXAM: CT Head without IV contrast INDICATION: Fall TECHNIQUE: Multi-detector row CT images were obtained of the head without the use of IV contrast. All CT scans performed at this facility utilize dose optimization techniques as appropriate to the exam, including the following: Automated exposure control and adjustment of the mA and/or KV according to patient size (this includes techniques or standardized protocols for targeted exams where dose is indication/reason for exam). COMPARISON: 07/06/[address], 08/08/[address] FINDINGS: BRAIN PARENCHYMA: No evidence of acute intraparenchymal hemorrhage or infarct. Generalized parenchymal volume loss and white matter low density compatible chronic ischemic microvascular disease is again demonstrated. VENTRICLES & EXTRA-AXIAL SPACES: Ventricles are within normal limits. Basilar cisterns are patent. No pathologic extra-axial fluid collection or mass. Intracranial vascular calcifications are again evident most conspicuous in the left V4 vertebral artery. ORBITS: Orbital contents show evidence of right cataract surgery but otherwise are unremarkable. SINUSES: Visualized paranasal sinuses and mastoid air cells are clear. OSSEOUS & SOFT TISSUES: Calvarium and skull base are intact. Mild left suboccipital soft tissues stranding is noted. IMPRESSION: No acute intracranial pathology. EXAM: CT Cervical Spine without IV contrast INDICATION: Fall TECHNIQUE: Multi-detector row CT images were obtained through the cervical spine without the use of IV contrast. Post-processing sagittal and coronal reconstructed images were obtained for interpretation. All CT scans performed at this facility utilize dose optimization techniques as appropriate to the exam, including the following: Automated exposure control and adjustment of the mA and/or KV according to patient size (this includes techniques or standardized protocols for targeted exams where dose is indication/reason for exam). COMPARISON: None FINDINGS: CRANIOCERVICAL JUNCTION: Unremarkable. ALIGNMENT: Alignment is within normal limits. OSSEOUS: No evidence of fracture or bone destruction. DISC SPACES: Focal disc ossification along the ventral epidural space at C5-C6 results in mild central canal narrowing. The disc space is narrowed and anterior osteophytic spurs are also noted.. FACET JOINTS: Unremarkable. SPINAL CANAL: Mild narrowing at C5-C6. Otherwise unremarkable. NEUROFORAMINA: Unremarkable. SOFT TISSUES: Unremarkable. IMPRESSION: No acute traumatic findings in the cervical spine with degenerative changes noted, most conspicuously at C5-C6. Electronically signed by: Darrell Ellsworth MD (08/25/2019 12:55 PM) [id number] DICTATED AND SIGNED BY: DARRELL ELLSWORTH MD DATE: 08/25/19 [id number] CC: ERICK GARCIA DO; MELISSA HART PAC ~ Course & Med Decision Making Course & Med Decision Making Pertinent Labs and Imaging studies reviewed. (See chart for details) On exam, the patient had tenderness of his mid cervical spine so we placed him in a cervical collar for precautions. The patient's head and neck CT are negative for acute findings. His chest x-ray is negative for acute findings. His cervical collar was removed. The patient's urinalysis is negative for infec tion. Believe the patient had a vasovagal episode. He may be somewhat dehydrated. He was given fluid in the ER. I have advised that he slow down and take this time every time he transitions from lying to sitting and sitting to standing. He is stable for discharge at this time. [] Dragon Disclaimer Dragon Disclaimer This electronic medical record was generated, in whole or in part, using a voice recognition dictation system. Departure Departure: Impression: Primary Impression: Syncopal episodes Disposition: HOME, SELF-CARE Condition: STABLE Referrals: MELISSA HART PAC (PCP) Patient Instructions: Syncope, [id number] Problem Qualifiers Primary Impression: Syncopal episodes Syncope type: unspecified Qualified Codes: R55 - Syncope and collapse ERICK GARCIA DO Aug 25, 2019 13:10
[2019-08-25] MEDS ORDERED: IV NORMAL SALINE 1,000ML 1,000 ML IV ONE (13:45)
[2019-08-25 14:18] LABS: BILIRUBIN,URINE NEG (NEG); CLARITY,URINE CLEAR; COLOR,URINE YELLOW; GLUCOSE,URINE 500 mg/dL (NEG); NITRITE,URINE NEG (NEG); UROBILINOGEN,URINE 0.2 mg/dL (0.2 mg/dL)
[2019-08-25 14:19] LABS: BACTERIA,URINE 0 /HPF (0-FEW); SQUAMOUS EPITHELIAL CELL,UR OCC /LPF; YEAST,URINE PRESENT /HPF
== END 2019-08-25 14:57 | disposition home or self-care (01) ==
LOC: ER 12:05
DX: R55 Syncope and collapse (principal); G89.11 Acute pain due to trauma; M54.2 Cervicalgia; R51 Headache; I11.0 Hypertensive heart disease with heart failure; I50.9 Heart failure, unspecified; J44.9 Chronic obstructive pulmonary disease, unspecified; E11.9 Type 2 diabetes mellitus without complications; E78.5 Hyperlipidemia, unspecified; E03.9 Hypothyroidism, unspecified; I25.2 Old myocardial infarction; W18.2XXA Fall in (into) shower or empty bathtub, initial encounter; Y93.89 Activity, other specified; Y92.89 Other specified places as the place of occurrence of the external cause; Y99.8 Other external cause status
CPT/HCPCS: 36415; 70450; 71045; 72125; 80053; 81001; 84484; 85025; 93005; 96360; 99285-25; J7030

== ENCOUNTER 2021-04-24 05:27 | Emergency (ER) | payer MEDICAID, MEDICARE, OTHER ==
[~2021-04-24] VITALS: Ht 167.6 cm; Wt 130.8 kg
[~2021-04-24 05:27] MED LIST changes: -AMIO200T4 PO; +AMIO200T54 PO; -ISOS60TA2 PO; +ISOS60TA55 PO
--- NOTE | 2021-04-24 05:48 | PHYS DOC ---
Past History Past Medical History: CHF, COPD, Diabetes, High Cholesterol, Hypertension, Hypothyroid, Kidney Stones, [place], Other Additional Past Medical Histor: radial dermatitis(back pain), mi '08 (DANY BARAJAS MD) Past Surgical History: Other Additional Past Surgical Histo: cardiac stents,l4-l5,debrideback,partial thyroidectomy,left arm/infiltratra (DANY BARAJAS MD) Alcohol Use: None Drug Use: None (DANY BARAJAS MD) Adult General Chief Complaint Chief Complaint: OTHER COMPLAINTS HPI HPI Patient is a 66-year-old male with past medical history significant for heart failure, atrial fibrillation, CAD, hypertension, hyperlipidemia, hypothyroidism, COPD and insulin-dependent type 2 diabetes who presents from the halfway for chief complaint of altered mental status from the staff. States that he is usually awake, alert but about 3 to 4 hours ago seemed quite a bit more tired than usual, sleepy and was not answering questions very well. States he also seemed to have a wet cough and has some more swelling than usual in his bilateral lower extremities. Denies any known traumas. (DANY BARAJAS MD) Review of Systems Review of Systems Review of systems otherwise unremarkable except noted in HPI (DANY BARAJAS MD) Allergies Allergies Allergies Coded Allergies Type Severity Reaction Last Updated Verified levofloxacin Allergy Unknown Rash 05/27/19 Yes niacin Allergy Unknown 05/27/19 Yes (DANY BARAJAS MD) Physical Exam Physical Exam Constitutional: Well developed, well nourished, patient appears confused, ill HENT: Normocephalic, atraumatic, bilateral external ears normal, oropharynx moist, no oral exudates, nose normal. [] Eyes: PERRLA, EOMI, conjunctiva normal, no discharge. [] Neck: Normal range of motion, no tenderness, supple, no stridor. [] Cardiovascular: Paced rhythm Lungs & Thorax: Bilateral breath sounds with significant rhonchi globally, tachypnea Abdomen: soft, no tenderness, no masses, no pulsatile masses. [] Skin: Warm, dry, no erythema, no rash. [] Extremities: No tenderness, no cyanosis, no clubbing, ROM intact, 3+ bilateral pitting edema Neurologic: Alert and oriented to name and place but not time, normal motor function, normal sensory function, no focal deficits noted. [] (DANY BARAJAS MD) Current Patient Data Vital Signs Vital Signs Date Time Temp Pulse Resp B/P (MAP) Pulse Ox O2 Delivery O2 Flow Rate FiO2 04/24/21 05:31 97.7 70 15 133/78 (96) 97 Room Air (DANY BARAJAS MD) EKG EKG [] (DANY BARAJAS MD) Radiology/Procedures Radiology/Procedures [] (DANY BARAJAS MD) Heart Score C/O Chest Pain: No Risk Factors: Risk Factors: DM, Current or recent (<one month) smoker, HTN, HLP, family history of CAD, obesity. Risk Scores: Risk Factors: DM, Current or recent (<one month) smoker, HTN, HLP, family history of CAD, obesity. (DANY BARAJAS MD) C/O Chest Pain: N/A (POP HUERTA MD) Course & Med Decision Making Course & Med Decision Making Patient is a 66-year-old male with significant past medical cardiovascular and endocrine medical issues who presents from the halfway for lethargy, confusion, and apparent fluid overload Vital signs with a paced rate of 70, tachypnea but no hypoxia, blood sugar 150. Placed on the monitor with IV access established. Started on Lasix and CPAP with initial working diagnosis of decompensated heart failure with pulmonary edema and possible pneumonia as patient recently had a diagnosis of this. Covid swab pending. Labs and imaging pending. Patient care transferred to day team for continued evaluation, treatment and disposition. (DANY BARAJAS MD) Course & Med Decision Making Accepted patient care at shift change. Pending imaging. Patient tolerating BiPAP well, and has had about 3 L of urine output in emergency department. Patient was covered by previous physician with antibiotics due to concern for sepsis. Patient requiring BiPAP, no ICU beds available at this facility, will transfer to [facility] for higher level of care. Patient accepted by Dr. Hallman (OPP HUERTA MD) Dragon Disclaimer Dragon Disclaimer This electronic medical record was generated, in whole or in part, using a voice recognition dictation system. (DANY BARAJAS MD) Departure Departure: Impression: Primary Impression: Acute on chronic systolic CHF (congestive heart failure) Disposition: 02 [facility]ORT TERM [facility]OSPITAL Condition: STABLE Referrals: MELISSA HART PAC (PCP) DANY BARAJAS MD Apr 24, 2021 05:48 POP HUERTA MD Apr 24, 2021 10:55
[2021-04-24] MEDS ORDERED: FUROSEMIDE 40 MG/4 ML VIAL ONE (05:55)
[2021-04-24] MEDS ORDERED: NALOXONE 0.4 MG/ML VIAL. ONE (05:55)
[2021-04-24] MEDS ORDERED: NALOXONE 0.4 MG/ML VIAL. IV ONE (06:00)
[2021-04-24] MEDS ORDERED: PIPERACILLIN/TAZOBACTAM 4.5 GM in IV NORMAL SALINE 50ML 50 ML IV ONE (06:00)
[2021-04-24] MEDS ORDERED: IV NORMAL SALINE 50ML 50 ML ONE ×2 (06:06→06:10)
[2021-04-24] MEDS ORDERED: PIPERACILLIN/TAZOBACTAM 4.5 GM VIAL IV ONE ×2 (06:06→06:11)
[2021-04-24 06:20] LABS: CALCIUM 8.4 mg/dL (8.5-10.1); GFR 33.4; POTASSIUM 5.5 mmol/L (3.5-5.1)
[2021-04-24 06:24] LABS: BASO # 0.1 x10^3/uL (0.0-0.2); BASO % 1 % (0-3); EOS % 0 % (0-3); HEMOGLOBIN 10.4 g/dL (13.0-17.5); LYMPH # 1.1 x10^3/uL (1.0-4.8); LYMPH % 13 % (24-48); MEAN CORPUSCULAR HEMOGLOBIN 32 pg (25-35); MEAN CORPUSCULAR HGB CONC 33 g/dL (31-37); MEAN CORPUSCULAR VOLUME 97 fL (79-100); MONO # 0.3 x10^3/uL (0.0-1.1); MONO % 4 % (0-9); NEUT # 6.7 x10^3uL (1.8-7.7); NEUT % 82 % (31-73); PLATELET COUNT 107 x10^3/uL (140-400); RED BLOOD COUNT 3.29 x10^6/uL (4.30-5.70); RED CELL DISTRIBUTION WIDTH 16.3 % (11.5-14.5); WHITE BLOOD COUNT 8.1 x10^3/uL (4.0-11.0)
[2021-04-24 06:33] LABS: ALBUMIN 2.7 g/dL (3.4-5.0); ALBUMIN/GLOBULIN RATIO 0.8 (1.0-1.7); MAGNESIUM 1.9 mg/dL (1.8-2.4); TOTAL BILIRUBIN 0.6 mg/dL (0.2-1.0); TOTAL PROTEIN 5.9 g/dL (6.4-8.2)
[2021-04-24 06:46] LABS: BACTERIA,URINE FEW /HPF (0-FEW); BILIRUBIN,URINE NEG (NEG); CLARITY,URINE HAZY; COLOR,URINE STRAW; GLUCOSE,URINE 100 mg/dL (NEG); NITRITE,URINE NEG (NEG); SQUAMOUS EPITHELIAL CELL,UR FEW /LPF; UROBILINOGEN,URINE 0.2 mg/dL (0.2 mg/dL); YEAST,URINE PRESENT /HPF
--- NOTE | 2021-04-24 07:03 | RAD ---
EXAM: Chest, single view. HISTORY: Altered mental status. COMPARISON: 08/25/2019 FINDINGS: A frontal view of the chest is obtained. There is diffuse increased interstitial opacity. T here is no consolidation. There is no pneumothorax. There are trace pleural effusions. There is cardi omegaly. There is evidence of prior CABG. There is a cardiac pacemaker defibrillator in expected posi tion. IMPRESSION: Diffuse interstitial infiltrate with trace pleural effusions and cardiomegaly. Electronically signed by: Lynette Alonso MD (04/24/2021 7:00 AM) [id number]
--- NOTE | 2021-04-24 07:04 | EKG ---
[address] [address] Test Date: 2021-04-24 Test Time: 06:34:29 Pat Name: MELISSA DIAZ Department: Room: Gender: M Complaint Analyst: STEPHON : 1955 Requested By: DANY BARAJAS Order Number: [id number] Reading MD: Sanju Moran Measurements Intervals [place] Rate: 70 P: 95 [place]: 146 QRS: 3 QRSD: 114 T: 141 QT: 444 QTc: 483 Interpretive Statements ATRIALLY PACED Electronically Signed On 04-25-2021 9:45:26 VENEER SAWYER by Sanju Moran
[2021-04-24 07:17] LABS: BGAS PH 7.42 (7.35-7.46)
--- NOTE | 2021-04-24 08:44 | RAD ---
EXAM: CT HEAD WITHOUT CONTRAST. HISTORY: Altered mental status. TECHNIQUE: Computed tomography of the head was performed without intravenous contrast. One or more of the following individualized dose reduction techniques were utilized for this examination: 1. Automated exposure control. 2. Adjustment of the mA and/or kV according to patient size. 3. Use of iterative reconstruction technique. COMPARISON: 08/25/2019. FINDINGS: There is no intracranial hemorrhage. There is a chronic lacunar infarct in the left caudate head. There is mild to moderate chronic microangiopathic white matter change elsewhere. Prominence o f the lateral ventricles and hemispheric sulci indicates moderate atrophy. The visualized paranasal sinuses appear clear. There are changes of bilateral cataract surgery. The t emporal bones are unremarkable. The calvarium reveals no suspicious lesions. There are atheroscleroti c calcifications of the internal carotid and vertebral arteries. IMPRESSION: 1. No acute intracranial findings. 2. Moderate atrophy and chronic microangiopathic white matter change. Electronically signed by: Toi Bradshaw MD (04/24/2021 8:42 AM) [facility]
--- NOTE | 2021-04-24 08:56 | RAD ---
EXAM: CT OF THE CHEST, ABDOMEN AND PELVIS WITHOUT CONTRAST. HISTORY: Infection of unknown origin. TECHNIQUE: Computed tomography of the chest, abdomen and pelvis was performed without intravenous con trast. One or more of the following individualized dose reduction techniques were utilized for this e xamination: 1. Automated exposure control. 2. Adjustment of the mA and/or kV according to patient size. 3. Use of iterative reconstruction technique. COMPARISON: 03/03/2020. FINDINGS: Bone windows reveal no suspicious lesions. There are no pathologically enlarged mediastinal or axillary lymph nodes. There is a trace left pleur al effusion. There is no pericardial effusion. The heart is moderately enlarged. Changes of coronary artery bypass grafting are noted. A left-sided pacemaker has its leads in the right atrium and right ventricle. Inspiration is small bibasilar atelectasis. There are branching nodular infiltrates in both bases, mo st notable within the lingula. There is minimal septal line thickening in the apices. There are calcified granulomas in the liver and spleen. The gallbladder, pancreas, adrenal glands and kidneys are unremarkable without contrast. There are no pathologically enlarged lymph nodes. The bladder is decompressed by a Mejia catheter. There is mild bladder wall thickening. The appendix is not inflamed. There is no small bowel obstruction. Mild retroperitoneal and body wall edema are no bill. IMPRESSION: 1. Mild branching nodular infiltrates in both lower lobes may reflect aspiration or an atypical infec tious process. 2. Nonfocal bladder wall thickening suggests chronic outlet obstruction or inflammation. Correlate urinalysis. 3. Moderate cardiomegaly. Electronically signed by: Toi Bradshaw MD (04/24/2021 8:54 AM) [facility]
[2021-04-24 10:06] VITALS: BP 144/76
== END 2021-04-24 10:28 | disposition short-term general hospital (02) ==
LOC: ER 05:32
DX: I11.0 Hypertensive heart disease with heart failure (principal); I50.23 Acute on chronic systolic (congestive) heart failure; J44.9 Chronic obstructive pulmonary disease, unspecified; E11.9 Type 2 diabetes mellitus without complications; E78.00 Pure hypercholesterolemia, unspecified; E03.9 Hypothyroidism, unspecified; I25.2 Old myocardial infarction; E78.5 Hyperlipidemia, unspecified; I25.10 Atherosclerotic heart disease of native coronary artery without angina pectoris; Z20.822 Contact with and (suspected) exposure to COVID-19; Z87.442 Personal history of urinary calculi; Z88.1 Allergy status to other antibiotic agents
CPT/HCPCS: 70450; 71045; 71250; 74176; 80053; 81001; 82803; 83605; 83735; 83880; 84484; 85025; 87040; 87086; 87426; 93005; 94660; 96365; 96375; 99285; C9803; J2310; J2543; U0003

== ENCOUNTER 2021-05-14 09:00 | Inpatient (IN) | payer OTHER, MEDICAID ==
[~2021-05-14] VITALS: Ht 182.9 cm; Wt 128.6 kg
[2021-05-14] MEDS ORDERED: IV NORMAL SALINE 1,000ML 1,000 ML IV ONE (09:30)
--- NOTE | 2021-05-14 09:46 | RAD ---
EXAM: Chest, single view. HISTORY: Dizziness. COMPARISON: 04/24/2021 FINDINGS: A frontal view of the chest is obtained. There is left lower lobe infiltrate with superimpo sed diffuse interstitial prominence. There is no consolidation, pleural effusion or pneumothorax. The re is a stable enlarged cardiac silhouette and evidence of prior CABG. There is a coronary artery shane nt. There is a cardiac pacemaker defibrillator. There are small pleural effusions. There is no pneumo thorax. IMPRESSION: 1. Left lower lobe infiltrate superimposed on suspected chronic diffuse interstitial prominence. 2. Cardiomegaly. 3. Suspected small pleural effusions. Electronically signed by: Lynette Alonso MD (05/14/2021 9:43 AM) [id number]
--- NOTE | 2021-05-14 09:46 | PHYS DOC ---
Past History Past Medical History: CHF, COPD, Diabetes, High Cholesterol, Hypertension, Hypothyroid, Kidney Stones, [place], Other Additional Past Medical Histor: radial dermatitis(back pain), mi '08 Past Surgical History: Other Additional Past Surgical Histo: cardiac stents,l4-l5,debrideback,partial thyroidectomy,left arm/infiltratra Alcohol Use: None Drug Use: None General Adult EDM: Chief Complaint: DIZZY/LIGHT HEADED HPI: HPI: 66-year-old male presents via EMS from rehab facility with dizziness and fatigue. Patient states when he woke up this morning he felt dizzy. At first it looked like the ceiling was rotating. It now feels like he is lightheaded and floating. Patient was reported to have a blood sugar in the 60s. EMS had a blood sugar over 100. The patient states he has been taking all of his medications. He has a history of COPD, coronary bypass, and multiple stents. Patient denies fever or chills. He is very sleepy. He is in rehab due to leg weakness. The patient was vaccinated against COVID-19 and got his booster. Review of Systems: Review of Systems: Constitutional: Denies fever or chills Eyes: Denies change in visual acuity HENT: Denies nasal congestion or sore throat Respiratory: shortness of breath Cardiovascular: Denies chest pain or edema GI: Denies abdominal pain, nausea, vomiting, bloody stools or diarrhea : Denies dysuria Musculoskeletal: Denies back pain or joint pain Integument: Denies rash Neurologic: Dizziness. Denies headache, focal weakness or sensory changes Endocrine: Denies polyuria or polydipsia Lymphatic: Denies swollen glands Psychiatric: Denies depression or anxiety Current Medications: Current Meds: Current Medications Medications (Trade) Dose Ordered Sig/Levon Start Time Stop Time Status Last Admin Dose Admin Sodium Chloride 1,000 ml @ 1,000 mls/hr 1X ONCE 05/14/21 09:30 05/14/21 10:29 UNV Allergies: Allergies: Allergies Coded Allergies Type Severity Reaction Last Updated Verified garlic Allergy Unknown 05/14/21 Yes hydrocodone Allergy Unknown 05/14/21 Yes levofloxacin Allergy Unknown Rash 05/27/19 Yes niacin Allergy Unknown 05/27/19 Yes Physical Exam: PE: Constitutional: Well developed, well nourished, sleepy, morbidly obese, no acute distress, non-toxic appearance. [] HENT: Normocephalic, atraumatic, bilateral external ears normal, oropharynx moist, no oral exudates, nose normal. [] Eyes: PERRLA, EOMI, pinpoint pupils, conjunctiva normal, no discharge. [] Neck: Normal range of motion, no tenderness, supple, no stridor. [] Cardiovascular: Heart rate regular rhythm, no murmur [] Lungs & Thorax: Bilateral coarse breath sounds throughout. [] Abdomen: Bowel sounds normal, soft, no tenderness, no masses, no pulsatile masses. [] Skin: Warm, dry, no erythema, no rash. [] Back: No tenderness, no CVA tenderness. [] Extremities: No tenderness, no cyanosis, no clubbing, ROM intact, no edema. [] Neurologic: Alert and oriented X 3, normal motor function, normal sensory function, no focal deficits noted. [] Psychologic: Affect normal, judgement normal, mood normal. [] Current Patient Data: Vital Signs: Vital Signs Date Time Temp Pulse Resp B/P (MAP) Pulse Ox O2 Delivery O2 Flow Rate FiO2 05/14/21 09:00 97.9 70 14 91/50 (64) Room Air EKG: EKG: Sinus rhythm, rate 70, normal axis, no ST elevation depression. [] Radiology/Procedures: Radiology/Procedures: [] Impressions: EXAM: Chest, single view. HISTORY: Dizziness. COMPARISON: 04/24/2021 FINDINGS: A frontal view of the chest is obtained. There is left lower lobe infiltrate with superimposed diffuse interstitial prominence. There is no con solidation, pleural effusion or pneumothorax. There is a stable enlarged cardiac silhouette and evidence of prior CABG. There is a coronary artery stent. There is a cardiac pacemaker defibrillator. There are small pleural effusions. There is no pneumothorax. IMPRESSION: 1. Left lower lobe infiltrate superimposed on suspected chronic diffuse interstitial prominence. 2. Cardiomegaly. 3. Suspected small pleural effusions. Electronically signed by: Lynette Lindo MD (05/14/2021 9:43 AM) [id number] DICTATED AND SIGNED BY: LYNETTE LINDO MD DATE: 05/14/21 0942 CC: ERICK GARCIA DO; MELISSA HART PAC ~MTH0 0 Heart Score: C/O Chest Pain: No Risk Factors: Risk Factors: DM, Current or recent (<one month) smoker, HTN, HLP, family history of CAD, obesity. Risk Scores: Score 0 - 3: 2.5% MACE over next 6 weeks - Discharge Home Score 4 - 6: 20.3% MACE over next 6 weeks - Admit for Clinical Observation Score 7 - 10: 72.7% MACE over next 6 weeks - Early Invasive Strategies Course & Med Decision Making: Course & Med Decision Making Pertinent Labs and Imaging studies reviewed. (See chart for details) The patient's labs are significant for a slightly elevated white count. His creatinine is 2.0 which is consistent with his previous chart. Chest x-ray show s left lower pneumonia. Since the patient is in a care facility this is healthcare associated pneumonia by definition. I will give him vancomycin and Zosyn in the emergency room admit him to the hospital. I spoke with Dr. Maldonado and he has accepted the patient for admission. Ayush Disclaimer: Ayush Disclaimer: This electronic medical record was generated, in whole or in part, using a voice recognition dictation system. Departure Departure: Impression: Primary Impression: Healthcare-associated pneumonia Disposition: ADMITTED INPATIENT Admitting Physician: Martin Maldonado Condition: STABLE Referrals: MELISSA HART (PCP) ERICK GARCIA DO May 14, 2021 09:46
[2021-05-14 10:12] LABS: BASO % 0 % (0-3); EOS % 0 % (0-3); HEMATOCRIT 31.3 % (39.0-53.0); HEMOGLOBIN 10.2 g/dL (13.0-17.5); LYMPH % 8 % (24-48); MEAN CORPUSCULAR HEMOGLOBIN 32 pg (25-35); MEAN CORPUSCULAR HGB CONC 33 g/dL (31-37); MEAN CORPUSCULAR VOLUME 97 fL (79-100); MONO # 1.1 x10^3/uL (0.0-1.1); MONO % 9 % (0-9); NEUT # 10.5 x10^3uL (1.8-7.7); NEUT % 84 % (31-73); PLATELET COUNT 148 x10^3/uL (140-400); RED BLOOD COUNT 3.22 x10^6/uL (4.30-5.70); RED CELL DISTRIBUTION WIDTH 19.5 % (11.5-14.5); WHITE BLOOD COUNT 12.6 x10^3/uL (4.0-11.0)
[2021-05-14 10:13] LABS: CALCIUM 8.8 mg/dL (8.5-10.1); GFR 33.4; POTASSIUM 4.1 mmol/L (3.5-5.1)
[2021-05-14 10:18] LABS: ALBUMIN 2.7 g/dL (3.4-5.0); ALBUMIN/GLOBULIN RATIO 0.7 (1.0-1.7); TOTAL BILIRUBIN 0.5 mg/dL (0.2-1.0); TOTAL PROTEIN 6.6 g/dL (6.4-8.2)
[2021-05-14] MEDS ORDERED: AZITHROMYCIN 500 MG in IV NORMAL SALINE 250ML 250 ML IV ONE (10:30)
[2021-05-14] MEDS ORDERED: PIPERACILLIN/TAZOBACTAM 3.375 GM in IV NORMAL SALINE 50ML 50 ML IV ONE (10:45)
[2021-05-14] MEDS ORDERED: IV NORMAL SALINE 50ML 50 ML ONE (10:45)
[2021-05-14] MEDS ORDERED: PIPERACILLIN/TAZOBACTAM 3.375 GM VIAL IV ONE (10:45)
[2021-05-14] MEDS ORDERED: VANCOMYCIN PER PHARMACY MC PRN (11:00)
[2021-05-14] MEDS ORDERED: VANCOMYCIN 2 GM in IV NORMAL SALINE 500ML 500 ML IV ONE (11:00)
[2021-05-14 12:01] LABS: INFLUENZA A PATIENT NEGATIVE (NEGATIVE); INFLUENZA B PATIENT NEGATIVE (NEGATIVE)
--- NOTE | 2021-05-14 12:27 | EKG ---
[address] [address] Test Date: 2021-05-14 Test Time: 09:10:07 Pat Name: MELISSA DIAZ Department: Room: Gender: M Investigative Agent: : 1955 Requested By: ERICK GARCIA Order Number: [id number] Reading MD: Maurice Barrett MD Measurements Intervals [place] Rate: 70 P: [place]: QRS: 10 QRSD: 114 T: 84 QT: 440 QTc: 478 Interpretive Statements A-PACED PVC NON-SPECIFIC ST/T CHANGES Electronically Signed On 05-23-2021 15:50:59 VIDEO INTERN by Maurice Barrett MD
[2021-05-14] MEDS ORDERED: ONDANSETRON PF 4 MG/2 ML VIAL. IVP PRN (14:00)
[2021-05-14] MEDS ORDERED: ACETAMINOPHEN 325 MG TABLET PO PRN (14:00)
[2021-05-14 15:11] VITALS: BP 148/83
[2021-05-14] MEDS ORDERED: HYDROmorphone 2 MG TABLET PO PRN (16:45)
[2021-05-14] MEDS ORDERED: POLYETHYLENE GLYCOL 3350 17 GM PACKET. PO PRN (17:30)
[2021-05-14] MEDS ORDERED: NITROGLYCERIN SUBLINGUAL 0.4 MG BOTTLE OF 25. SL PRN (17:30)
[2021-05-14] MEDS ORDERED: oxyCODONE IR 5 MG TABLET PO PRN (17:30)
--- NOTE | 2021-05-14 17:44 | HP ---
DATE OF SERVICE: 05/14/2021 ADMIT DATE: 05/14/2021 HISTORY OF PRESENT ILLNESS: The patient is a 66-year-old male patient, a resident at [facility], who was brought to the Emergency Room with a complaint of being dizzy, lightheaded. He also complained of being fatigued. He states that he woke up this morning and felt dizzy. First, it looks like that the ceiling was rotating, now feels that he is lightheaded and floating. He reported to have a blood sugar in the 60s. EMS had a blood sugar of 100. The patient states that he has been taking all of his medication. He does have a history of chronic obstructive pulmonary disease, coronary artery disease. He denied any fever or chills. Did complain of cough with greenish sputum. He was actually vaccinated against COVID and took also the booster dose. He was extensively investigated in the Emergency Room and has had lab work as well as imaging studies. His lab work showed a white cell count 12,600. His chemistry showed he has chronic kidney failure. His coronavirus PCR was negative. The rapid test was negative and influenza A and B were negative. He was admitted. His chest x-ray showed that he has left lower lobe pneumonia and therefore, the patient was admitted for to be treated for healthcare-associated pneumonia. He was started on IV vancomycin as well as Zosyn. We will obviously continue with all his other medication and monitor his lab work closely. His blood and urine was sent for culture and sensitivity. Sputum also, result of which is still pending at the time of this dictation. PAST MEDICAL HISTORY: Significant for type 2 diabetes mellitus of longstanding, hypertension, hyperlipidemia, coronary artery disease, status post myocardial infarction, in 2007 he underwent percutaneous coronary intervention and stent deployment x 9. He has also coronary artery bypass graft surgery, had cardiac arrest x 2, he apparently had left upper extremity compartment syndrome that required fasciotomy, has a lung nodule that is followed closely, had acute kidney injury twice, once with compartment syndrome when he was in [place] for 2 months and few months ago when he was treated with IV fluids for acute kidney injury, has benign prostatic hypertrophy by symptoms, TIA, chronic obstructive pulmonary disease, obstructive sleep apnea. He is currently on 2 liters of oxygen by nasal cannula. PAST SURGICAL HISTORY: Significant for PCI and stent deployment x 9, coronary artery bypass graft surgery, fasciotomy, L4-L5 laminectomy and partial thyroidectomy. ALLERGIES: ALLERGIC TO LEVOFLOXACIN AND NIACIN. FAMILY HISTORY: He has one sister who has coronary artery disease. His father in his 60s and mother in her 60s due to congestive heart failure. SOCIAL HISTORY: He is , has 2 daughters alive, has one daughter when she was only 4 months old. One son because of congenital heart disease at the age of 10 years and one son was electrocuted. He continues to smoke about 6 cigarettes a day. He does not drink alcohol or use recreational drugs. He is currently retired. 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 MEDICATIONS: He is currently on the following medication: He is on albuterol sulfate 1 by nebulizer 4 times a day, ferrous sulfate 325 mg once a day, Pradaxa 150 mg twice a day, Plavix 75 mg once a day, amiodarone 200 mg daily. He is on Ranexa 1000 mg twice a day, atorvastatin calcium 80 mg at bedtime, isosorbide mononitrate 60 mg daily, carvedilol 12.5 mg twice a day, hydromorphone 2 mg p.o. b.i.d., hydromorphone 0.5 mg at noon. He is on oxycodone 10 mg extended release twice a day and oxycodone immediate release 5 mg at noon, pregabalin 150 mg twice a day, escitalopram Oxalate 10 mg daily, bumetanide 2 mg daily, montelukast 10 mg once a day, ranitidine 150 mg, he gets 300 mg once a day, Protonix 40 mg daily. He is on Lantus 14 units at bedtime, Humalog 3 times a day with meals. He is on Jardiance 10 mg daily and levothyroxine sodium 300 mcg once a day. REVIEW OF SYSTEMS: As per history of present illness. PHYSICAL EXAMINATION: GENERAL: When I examined him on arrival, he looked well and was clearly in no apparent respiratory distress. No pallor, jaundice, cyanosis or thyromegaly. No jugular venous distention. No lower limb edema. VITAL SIGNS: His heart rate was 70, blood pressure was 191/50, temperature 97.9, respiratory rate was 14 and oxygen saturation was 96% on room air. HEAD, EYES, EARS, NOSE, AND THROAT: Normocephalic, atraumatic. NECK: Supple. HEART: Showed normal first and second heart sounds. No gallop, rub or murmur. CHEST: Clear to auscultation. No crepitation or rhonchi. Chest shows central trachea, equal bilateral expansion, air entry, vesicular breath sounds with crepitation mostly in the left side posteriorly. He does have diffuse wheezing. ABDOMEN: Distended, soft, nontender. NEUROLOGIC: He was awake, alert, responding appropriately. Cranial nerves intact. He moves extremities without difficulty. He does ambulate with a walker, according to him. LABORATORY DATA: Showed a white cell count 12,600, hemoglobin 10, hematocrit 31, MCV 92 and platelet count of 148,000. His chemistry showed a serum sodium 140, potassium 4.1, chloride 102, bicarbonate 32, anion gap of 6, BUN 46, creatinine 2, estimated GFR was 33 mL per minute. His glucose was 75, calcium was 8.8. Total bilirubin, AST, ALT, alkaline phosphatase were normal. His troponin was only 17. Total protein 6.6, albumin 2.7. His influenza A and B were negative and coronavirus by rapid testing was negative. His chest x-ray showed that the patient has left lower lobe infiltrate, superimposed on suspected chronic diffuse interstitial prominence, cardiomegaly, suspected small pleural effusion. ASSESSMENT AND PLAN: The patient was admitted with healthcare-associated pneumonia. He was started on IV vancomycin and Zosyn. We will reconcile all his medication and await the result of the blood and sputum for culture and sensitivity and adjust the antibiotic accordingly. JORGE L DR: Mundo TID: [id number]
[2021-05-14] MEDS ORDERED: ALBUTEROL SULFATE 2.5 MG/3 ML NEBU. NEB PRN (17:45)
[2021-05-14] MEDS ORDERED: OXYC5TAB4 PO (17:59)
[2021-05-14] MEDS ORDERED: INSU100V13 SQ ×2 (17:59)
[2021-05-14] MEDS ORDERED: PREG75CA67 PO (17:59)
[2021-05-14] MEDS ORDERED: ALLO100T PO (17:59)
[2021-05-14] MEDS ORDERED: ISOS120T4 PO (17:59)
[2021-05-14] MEDS ORDERED: SPIR50TA4 PO (17:59)
[2021-05-14] MEDS ORDERED: DOCU100C28 PO (17:59)
[2021-05-14] MEDS ORDERED: POLY17PO5 PO (17:59)
[2021-05-14] MEDS ORDERED: ALBU2.5V8 INH (17:59)
[2021-05-14] MEDS ORDERED: MENT118G TP (17:59)
[2021-05-14] MEDS ORDERED: ESCITALOPRAM OX20 MG PO (17:59)
[2021-05-14] MEDS ORDERED: BACL20TA PO (17:59)
[2021-05-14] MEDS ORDERED: FURO20TA3 PO (17:59)
[2021-05-14] MEDS ORDERED: IPRA3AMP29 NEB (17:59)
[2021-05-14] MEDS ORDERED: NITR0.4T22 SL (17:59)
[2021-05-14] MEDS ORDERED: DEXTROSE 50% 25 GM / 50ML DISP.SYRIN. IV PRN (18:15)
[2021-05-14 19:45] VITALS: BP 127/74
[2021-05-14] MEDS: IPRATRPIUM/ALBUTEROL 0.5/2.5MG 3 ML NEBU. NEB SCH (20:00)
[2021-05-14] MEDS ORDERED: ALBUTEROL SULFATE 2.5 MG/3 ML NEBU. NEB SCH (20:00)
[2021-05-14] MEDS ORDERED: INSULIN GLARGINE SYRINGE. SQ SCH (21:00)
[2021-05-14] MEDS ORDERED: oxyCODONE ER 10 MG TAB.ER.12H PO SCH (21:00)
[2021-05-14] MEDS ORDERED: DABIGATRAN ETEXILATE 150 MG CAPSULE. PO SCH (21:00)
[2021-05-14] MEDS ORDERED: PREGABALIN 75 MG CAPSULE PO SCH (21:00)
[2021-05-14] MEDS ORDERED: ATORVASTATIN CALCIUM 20 MG TABLET PO SCH (21:00)
[2021-05-14] MEDS: ALLOPURINOL 100 MG TABLET. PO SCH (22:49)
[2021-05-14] MEDS: MONTELUKAST 10 MG TABLET. PO SCH (22:49)
[2021-05-14] MEDS: DOCUSATE SODIUM 100 MG CAPSULE PO SCH (22:49)
[2021-05-14] MEDS: RANOLAZINE 500 MG TAB.ER.12H PO SCH (22:50)
[2021-05-14] MEDS: METHYL SALICYLATE/MENTHOL TOPICAL OINTMENT 57GM TUBE. TP SCH (22:50)
[2021-05-14] MEDS: PREGABALIN 75 MG CAPSULE PO SCH (22:50)
[2021-05-14] MEDS: BACLOFEN 20 MG TABLET PO SCH (22:50)
[2021-05-14] MEDS: CARVEDILOL 12.5 MG TABLET PO SCH (22:55)
[2021-05-14 23:21] VITALS: BP 136/71
[2021-05-15] MEDS: IPRATRPIUM/ALBUTEROL 0.5/2.5MG 3 ML NEBU. NEB SCH ×5 (05:37→21:35)
[2021-05-15 05:38] VITALS: BP 123/68
[2021-05-15] MEDS: LEVOTHYROXINE 150 MCG TABLET PO SCH (05:41)
[2021-05-15 07:59] LABS: HEMATOCRIT 30.1 % (39.0-53.0); RED BLOOD COUNT 3.13 x10^6/uL (4.30-5.70); RED CELL DISTRIBUTION WIDTH 19.2 % (11.5-14.5); WHITE BLOOD COUNT 9.5 x10^3/uL (4.0-11.0)
[2021-05-15 08:18] LABS: ALBUMIN 2.2 g/dL (3.4-5.0); ALBUMIN/GLOBULIN RATIO 0.6 (1.0-1.7); CALCIUM 8.1 mg/dL (8.5-10.1); CREATININE 1.6 mg/dL (0.7-1.3); GFR 43.2; TOTAL BILIRUBIN 0.6 mg/dL (0.2-1.0); TOTAL PROTEIN 5.7 g/dL (6.4-8.2)
[2021-05-15] MEDS: CARVEDILOL 12.5 MG TABLET PO SCH ×2 (08:33→17:45)
[2021-05-15] MEDS: PANTOPRAZOLE 40 MG TABLET. PO SCH (08:33)
[2021-05-15] MEDS: CLOPIDOGREL BISULFATE 75 MG TABLET PO SCH (08:49)
[2021-05-15] MEDS: SPIRONOLACTONE 25 MG TABLET PO SCH (08:49)
[2021-05-15] MEDS: FUROSEMIDE 20 MG TABLET PO SCH (08:49)
[2021-05-15] MEDS: CITALOPRAM 20 MG TABLET. PO SCH (08:49)
[2021-05-15] MEDS: DOCUSATE SODIUM 100 MG CAPSULE PO SCH ×2 (08:50→20:35)
[2021-05-15] MEDS: PREGABALIN 75 MG CAPSULE PO SCH ×3 (08:50→20:35)
[2021-05-15] MEDS: RANOLAZINE 500 MG TAB.ER.12H PO SCH ×2 (08:51→20:35)
[2021-05-15] MEDS: ISOSORBIDE MONONITRATE ER 30 MG TAB.ER.24H PO SCH (08:51)
[2021-05-15] MEDS: ALLOPURINOL 100 MG TABLET. PO SCH ×3 (08:51→20:35)
[2021-05-15] MEDS: INSULIN GLARGINE SYRINGE. SQ SCH (08:59)
[2021-05-15] MEDS ORDERED: ISOSORBIDE MONONITRATE ER 30 MG TAB.ER.24H PO SCH (09:00)
[2021-05-15] MEDS ORDERED: BUMETANIDE 1 MG TABLET PO SCH (09:00)
[2021-05-15] MEDS ORDERED: NON FORMULARY ITEM (Escitalopram Oxalate 1 TAB) PO SCH (09:00)
[2021-05-15] MEDS ORDERED: FERROUS SULFATE 325 MG TABLET. PO SCH (09:00)
[2021-05-15] MEDS: METHYL SALICYLATE/MENTHOL TOPICAL OINTMENT 57GM TUBE. TP SCH ×3 (09:00→21:00)
[2021-05-15] MEDS ORDERED: FAMOTIDINE 20 MG TABLET PO SCH (09:00)
[2021-05-15] MEDS ORDERED: EMPAGLIFLOZIN 10 MG TABLET. PO SCH (09:00)
[2021-05-15] MEDS: INSULIN LISPRO 300 UNITS/3 ML VIAL. SQ SCH ×3 (09:06→16:51)
[2021-05-15] MEDS: AMIODARONE HCL 200 MG TABLET. PO SCH (09:10)
[2021-05-15 11:24] VITALS: BP 136/74
[2021-05-15] MEDS: VANCOMYCIN 2 GM in IV NORMAL SALINE 500ML 500 ML IV SCH (11:52)
[2021-05-15] MEDS ORDERED: oxyCODONE IR 5 MG TABLET PO SCH (12:00)
[2021-05-15] MEDS ORDERED: HYDROmorphone 2 MG TABLET PO SCH (12:00)
[2021-05-15 14:40] VITALS: BP 103/61
[2021-05-15 19:41] VITALS: BP 116/67
[2021-05-15] MEDS: LACTOBACILLUS RHAMNOSUS GG 1 CAPSULE. PO SCH (20:35)
[2021-05-15] MEDS: BACLOFEN 20 MG TABLET PO SCH (20:35)
[2021-05-15] MEDS: MONTELUKAST 10 MG TABLET. PO SCH (20:35)
--- NOTE | 2021-05-15 20:45 | PN ---
DATE: 05/15/2021 SUBJECTIVE: The patient is resting, slightly propped up in bed, in no apparent distress. He continued to complain of cough with scanty yellowish sputum. Denied any chills, rigors, or fever. Denied any chest pain or shortness of breath. PHYSICAL EXAMINATION: GENERAL: Today when I examined him, he looked well and was clearly in no apparent respiratory distress, somewhat pale. No jaundice, cyanosis, or thyromegaly. No jugular venous distention. No limb edema. VITAL SIGNS: His heart rate was 72, blood pressure was 103/61, temperature was 98, respiratory rate 20, and oxygen saturation was 94%. HEAD, EYES, EARS, NOSE, AND THROAT: Normocephalic, atraumatic. NECK: Supple. HEART: Showed normal first and second heart sounds. No gallop, rub, or murmur. CHEST: Showed central trachea, equal bilateral expansion, air entry, vesicular breath sounds with crepitation mostly in the left side posteriorly. I could not appreciate any rhonchi. ABDOMEN: Distended, soft, nontender. NEUROLOGIC: He was grossly intact. His intake and output are incompletely recorded. LABORATORY DATA: His lab work showed his white cell count is down to 9500, hemoglobin 10, hematocrit 30, MCV 96, and platelet count of 126,000. His chemistry showed a serum sodium 139, potassium 4, chloride 105, bicarbonate 28, anion gap of 6, BUN 36, creatinine 1.6. Estimated GFR was 43 mL per minute. Glucose 124, calcium was 8.1. Total bilirubin, AST, ALT, alkaline phosphatase were normal. Beta natriuretic peptide was 4548. Total protein 5.7, albumin 2.2. His blood cultures showed no growth after 1 day. ASSESSMENT: 1. Healthcare-associated pneumonia. 2. Acute chronic obstructive pulmonary disease exacerbation. 3. Acute on chronic kidney injury. 4. Type 2 diabetes mellitus. 5. Hypertension. 6. Hyperlipidemia. 7. Coronary artery disease, status post myocardial infarction. PLAN: My plan is to continue with IV antibiotic in the form of Zosyn and Zyvox and vancomycin. If tomorrow the cultures remains negative, we can discontinue vancomycin and switch him to oral Augmentin. He can be discharged back to [facility]. THEE DR: Mundo TID: [id number]
[2021-05-15] MEDS ORDERED: INSULIN GLARGINE SYRINGE. SQ SCH (21:00)
[2021-05-15 23:23] VITALS: BP 132/66
[2021-05-16] MEDS: IPRATRPIUM/ALBUTEROL 0.5/2.5MG 3 ML NEBU. NEB SCH (05:33)
[2021-05-16] MEDS: LEVOTHYROXINE 150 MCG TABLET PO SCH (06:04)
[2021-05-16 06:47] VITALS: BP 120/64
[2021-05-16] MEDS: PANTOPRAZOLE 40 MG TABLET. PO SCH (07:52)
[2021-05-16] MEDS: INSULIN LISPRO 300 UNITS/3 ML VIAL. SQ SCH ×2 (07:53→12:00)
[2021-05-16] MEDS: CARVEDILOL 12.5 MG TABLET PO SCH (07:53)
[2021-05-16] MEDS: INSULIN GLARGINE SYRINGE. SQ SCH (07:55)
[2021-05-16] MEDS: ISOSORBIDE MONONITRATE ER 30 MG TAB.ER.24H PO SCH (08:01)
[2021-05-16] MEDS: FUROSEMIDE 20 MG TABLET PO SCH (08:02)
[2021-05-16] MEDS: RANOLAZINE 500 MG TAB.ER.12H PO SCH (08:02)
[2021-05-16] MEDS: LACTOBACILLUS RHAMNOSUS GG 1 CAPSULE. PO SCH (08:02)
[2021-05-16] MEDS: CLOPIDOGREL BISULFATE 75 MG TABLET PO SCH (08:02)
[2021-05-16] MEDS: CITALOPRAM 20 MG TABLET. PO SCH (08:02)
[2021-05-16] MEDS: DOCUSATE SODIUM 100 MG CAPSULE PO SCH (08:02)
[2021-05-16] MEDS: ALLOPURINOL 100 MG TABLET. PO SCH (08:03)
[2021-05-16] MEDS: SPIRONOLACTONE 25 MG TABLET PO SCH (08:03)
[2021-05-16] MEDS: AMIODARONE HCL 200 MG TABLET. PO SCH (08:03)
[2021-05-16] MEDS: PREGABALIN 75 MG CAPSULE PO SCH (08:04)
[2021-05-16] MEDS: METHYL SALICYLATE/MENTHOL TOPICAL OINTMENT 57GM TUBE. TP SCH (09:00)
[2021-05-16 10:12] VITALS: BP 112/66
[2021-05-16] MEDS ORDERED: OXYC5TAB4 PO (11:07)
--- NOTE | 2021-05-16 11:12 | DISCH ---
DISCHARGE ORDERS DISCHARGE DATE: May 16, 2021 FINAL DIAGNOSIS LLL Pneumonia COPD EXACERBATION CONDITION AT DISCHARGE: Stable Code Status: Full SNF STAY <30 DAYS: Yes POST DISCHARGE ORDERS: ACTIVITY ORDERS: Activity as tolerated, Avoid exertion, Walk in house WEIGHT BEARING STATUS: No restrictions DIET AFTER DISCHARGE: Cardiac WOUND/INCISION CARE: Keep wound/cast CDI, Change dressing CHECKS AFTER DISCHARGE: CHECKS AFTER DISCHARGE: Check blood press - daily, Check blood sugar, ac/hs, Check your Temp as needed, Weigh Yourself Daily TREATMENT/EQUIPMENT ORDERS: ADAPTIVE EQUIPMENT NEEDED: Cane RESPIRATORY EQUIPMENT: Oxygen DISCHARGE MEDICATIONS: Home Meds Active Scripts Oxycodone Hcl (OXYCODONE HCL IMMED.RELEASE ) 5 Mg Tablet, 5 MG PO PRN Q4HRS PRN for PAIN for 30 Days, #180 TAB Prov:PAULION MOHAN MD 05/16/21 Reported Medications Albuterol Sulfate (PROVENTIL HFA INHALER) 6.7 Gm Hfa.aer.ad, 1 PUFF INH PRN Q4HRS PRN for FOR ASTHMA, EACH 0 Refills 05/14/21 Spironolactone (SPIRONOLACTONE) 50 Mg Tablet, 1 TAB PO DAILY for hypertension, #30 TAB 5 Refills 05/14/21 Nitroglycerin (NITROGLYCERIN SubLingual) 0.4 Mg Tab.subl, 0.4 MG SL PRN Q5MIN PRN for CHEST PAIN, ML 05/14/21 Pregabalin (Pregabalin) 75 Mg Capsule, 75 MG PO TID for pain, CAP 05/14/21 Polyethylene Glycol 3350 (MIRALAX) 17 Gm Powd.pack, 1 PACKET PO PRN DAILY PRN for CONSTIPATION for 2 Days, PACKET 0 Refills dissolve in water 05/14/21 Insulin Detemir (LEVEMIR) 100 Unit/1 Ml Vial, 30 UNIT SQ DAILY08 for DM, EACH 05/14/21 Insulin Detemir (LEVEMIR) 100 Unit/1 Ml Vial, 15 UNIT SQ QHS for DM, EACH 05/14/21 Isosorbide Mononitrate (ISOSORBIDE MONONITRATE ER) 120 Mg Tab.er.24h, 1 TAB PO DAILY for hypertension for 30 Days, #30 TAB 0 Refills 05/14/21 Ipratropium/Albuterol Sulfate (DUONEB 0.5-3(2.5) MG/3 ML) 3 Ml Ampul.neb, 3 ML NEB QID for wheeze, EACH 05/14/21 Furosemide (FUROSEMIDE) 20 Mg Tablet, 1 TAB PO DAILY for hypertension, #90 TAB 1 Refill 05/14/21 Escitalopram Oxalate (ESCITALOPRAM OXALATE) 20 Mg Tablet, 1 TAB PO DAILY for depression, #30 TAB 5 Refills 05/14/21 Docusate Sodium (DOCUSATE SODIUM) 100 Mg Capsule, 1 CAP PO BID for constipation for 7 Days, #14 CAP 0 Refills 05/14/21 Menthol (BIOFREEZE) 118 Ml Gel..ml., 1 SAM TP TID for back pain for 10 Days, #118 ML 0 Refills 05/14/21 Baclofen (BACLOFEN) 20 Mg Tablet, 1 TAB PO QHS for ., #90 TAB 2 Refills 05/14/21 Allopurinol (ALLOPURINOL) 100 Mg Tablet, 1 TAB PO TID for ., #30 TAB 5 Refills 05/14/21 Ranolazine (RANEXA) 1,000 Mg Tab.er.12h, 1 TAB PO BID for A-FIB for 30 Days, #60 TAB 0 Refills 05/28/19 Levothyroxine Sodium (SYNTHROID) 300 Mcg Tablet, 300 MCG PO DAILY06 for THYROID SUPPLEMENT, #30 TAB 0 Refills 05/28/19 Carvedilol (COREG ) 12.5 Mg Tablet, 12.5 MG PO BIDWMEALS for CARDIAC, TAB 05/28/19 Amiodarone Hcl (AMIODARONE HCL) 200 Mg Tablet, 1 TAB PO DAILY for CHF, #90 TAB 1 Refill 05/28/19 Montelukast Sodium (MONTELUKAST SODIUM TABLET ) 10 Mg Tablet, 10 MG PO HS for FOR ASTHMA, TAB 0 Refills 05/28/19 Clopidogrel Bisulfate (PLAVIX) 75 Mg Tablet, 1 TAB PO DAILY for INHIBITOR POST CABG for 30 Days, #30 TAB 0 Refills 05/28/19 Pantoprazole Sodium (PROTONIX) 40 Mg Tablet.dr, 1 TAB PO DAILY for GERD, #30 TAB 5 Refills 05/28/19 Discontinued Reported Medications Oxycodone Hcl (OXYCODONE HCL IMMED.RELEASE ) 5 Mg Tablet, 5 MG PO PRN Q4HRS PRN for PAIN, TAB 05/14/21 Pregabalin (LYRICA) 150 Mg Capsule, 1 CAP PO BID for chronic pain, #60 CAP 5 Refills 08/08/19 Oxycodone Hcl (OXYCODONE HCL IMMED.RELEASE ) 5 Mg Tablet, 5 MG PO NOON for chronic pian, TAB 08/08/19 Oxycodone Hcl (OXYCODONE HCL EXTEND.RELEASE ) 10 Mg Tablet, 1 TAB PO BID for chronic pain MDD 4 Tablet(s) for 5 Days, #20 TAB 0 Refills 08/08/19 Hydromorphone Hcl (DILAUDID) 2 Mg Tablet, 0.5 TAB PO NOON for chronic pain for 5 Days, #10 TAB 0 Refills 08/08/19 Hydromorphone Hcl (DILAUDID) 2 Mg Tablet, 1 TAB PO BID PRN for pain MDD 2 Tablet(s) for 5 Days, #10 TAB 0 Refills 08/08/19 Empagliflozin (Jardiance) 10 Mg Tablet, 10 MG PO DAILY for DM, TAB 05/28/19 Insulin Glargine,Hum.rec.anlog (LANTUS SOLOSTAR) 100 Unit/1 Ml Insuln.pen, 14 UNIT SQ QHS for DM, SYR 05/28/19 Insulin Lispro (HUMALOG) 100 Unit/1 Ml Cartridge, 0 SQ TIDWMEALS for DM, EACH 05/28/19 Albuterol Sulfate (ALBUTEROL SULFATE NEB SOLN) 0.63 Mg/3 Ml Vial.neb, 1 VIAL NEB QID PRN for SHORTNESS OF BREATH, #150 ML 1 Refill 05/28/19 Escitalopram Oxalate (ESCITALOPRAM OXALATE) 10 Mg Tablet, 1 TAB PO DAILY for DEPRESSION, #30 TAB 3 Refills 05/28/19 Ferrous Sulfate (FERROUS SULFATE) 325 Mg Tablet, 1 TAB PO DAILY for SUPPLEMENT, #30 TAB 3 Refills 05/28/19 Ranitidine Hcl (ZANTAC) 150 Mg Tablet, 300 MG PO DAILY for GERD, TAB 05/28/19 Isosorbide Mononitrate (ISOSORBIDE MONONITRATE ER) 60 Mg Tab.er.24h, 1 TAB PO DAILY for angina, #30 TAB 5 Refills 05/28/19 Dabigatran Etexilate Mesylate (PRADAXA) 150 Mg Capsule, 1 CAP PO BID for A-FIB, #180 CAP 1 Refill 05/28/19 Atorvastatin Calcium (LIPITOR) 80 Mg Tablet, 80 MG PO QHS for FOR CHOLESTEROL, #30 TAB 0 Refills 05/28/19 Bumetanide (BUMETANIDE) 2 Mg Tablet, 1 TAB PO DAILY for CHF, #30 TAB 5 Refills 05/28/19 PAULINO MOHAN MD May 16, 2021 11:12
[2021-05-16 11:40] LABS: VANC TR 17.4 mcg/mL (10.0-20.0)
[2021-05-16] MEDS: VANCOMYCIN 2 GM in IV NORMAL SALINE 500ML 500 ML IV SCH (12:00)
== END 2021-05-16 13:24 | DRG 193 ==
LOC: ER 09:00 → 1 SOUTH 14:21
PROVIDERS: ADMIT Internal Medicine; ATTEND Internal Medicine
DX: J18.9 Pneumonia, unspecified organism (principal); N17.0 Acute kidney failure with tubular necrosis; J44.0 Chronic obstructive pulmonary disease with (acute) lower respiratory infection; I13.0 Hypertensive heart and chronic kidney disease with heart failure and stage 1 through stage 4 chronic kidney disease, or unspecified chronic kidney disease; J44.1 Chronic obstructive pulmonary disease with (acute) exacerbation; E03.9 Hypothyroidism, unspecified; E11.22 Type 2 diabetes mellitus with diabetic chronic kidney disease; E78.00 Pure hypercholesterolemia, unspecified; Z20.822 Contact with and (suspected) exposure to COVID-19; E78.5 Hyperlipidemia, unspecified; F17.210 Nicotine dependence, cigarettes, uncomplicated; I25.10 Atherosclerotic heart disease of native coronary artery without angina pectoris; I25.2 Old myocardial infarction; I50.9 Heart failure, unspecified; N18.9 Chronic kidney disease, unspecified; N40.0 Benign prostatic hyperplasia without lower urinary tract symptoms; Y95 Nosocomial condition; G47.33 Obstructive sleep apnea (adult) (pediatric); Z82.49 Family history of ischemic heart disease and other diseases of the circulatory system; Z86.73 Personal history of transient ischemic attack (TIA), and cerebral infarction without residual deficits; Z86.74 Personal history of sudden cardiac arrest; Z87.442 Personal history of urinary calculi; Z95.1 Presence of aortocoronary bypass graft; Z95.5 Presence of coronary angioplasty implant and graft; Z88.1 Allergy status to other antibiotic agents; Z88.8 Allergy status to other drugs, medicaments and biological substances; Z91.018 Allergy to other foods
CPT/HCPCS: 36415; 71045; 80053; 80202; 82947; 83880; 84484; 85025; 85027; 87040; 87426; 87804; 93005; 94640; 96361; 96365; J1815; J2543; J3370; J7040; U0003; 99285-25; J7030

== ENCOUNTER 2021-09-07 02:04 | Observation (INO) | payer OTHER, MEDICAID ==
[~2021-09-07] VITALS: Ht 182.9 cm; Wt 130.2 kg
[~2021-09-07 02:04] MED LIST changes: +ALBU2.5V8 INH; +ALLO100T PO; +BACL20TA PO; +DOCU100C28 PO; -EMPA10TA PO; +EMPA10TA3 PO; +ESCITALOPRAM OX20 MG PO; +FURO20TA3 PO; +INSU100V13 SQ; +IPRA3AMP29 NEB; +ISOS120T4 PO; +MENT118G TP; +NITR0.4T22 SL; +POLY17PO5 PO; +PREG75CA67 PO; +SPIR50TA4 PO
[2021-09-07 02:45] LABS: BASO # 0.1 x10^3/uL (0.0-0.2); BASO % 1 % (0-3); EOS # 0.1 x10^3/uL (0.0-0.7); EOS % 1 % (0-3); HEMATOCRIT 34.5 % (39.0-53.0); HEMOGLOBIN 11.6 g/dL (13.0-17.5); LYMPH % 13 % (24-48); MEAN CORPUSCULAR HEMOGLOBIN 34 pg (25-35); MEAN CORPUSCULAR HGB CONC 34 g/dL (31-37); MEAN CORPUSCULAR VOLUME 101 fL (79-100); MONO # 0.4 x10^3/uL (0.0-1.1); MONO % 6 % (0-9); NEUT % 79 % (31-73); PLATELET COUNT 189 x10^3/uL (140-400); RED BLOOD COUNT 3.42 x10^6/uL (4.30-5.70); RED CELL DISTRIBUTION WIDTH 16.7 % (11.5-14.5); WHITE BLOOD COUNT 7.6 x10^3/uL (4.0-11.0)
[2021-09-07 02:54] LABS: CALCIUM 8.7 mg/dL (8.5-10.1); CREATININE 2.8 mg/dL (0.7-1.3); GFR 22.6; POTASSIUM 3.4 mmol/L (3.5-5.1)
[2021-09-07 03:00] LABS: ALBUMIN/GLOBULIN RATIO 0.8 (1.0-1.7); TOTAL BILIRUBIN 0.4 mg/dL (0.2-1.0); TOTAL PROTEIN 6.6 g/dL (6.4-8.2)
[2021-09-07] MEDS ORDERED: DEXTROSE 50% 25 GM / 50ML DISP.SYRIN. IV ONE ×2 (03:21→03:30)
--- NOTE | 2021-09-07 03:22 | PHYS DOC ---
Past History Past Medical History: Anxiety, Arthritis, CHF, COPD, Diabetes, High Cholesterol, Hypertension, Hypothyroid, Kidney Stones, HI, Other Additional Past Medical Histor: radial dermatitis(back pain), mi '08 Past Surgical History: Other Additional Past Surgical Histo: cardiac stents,l4-l5,debrideback,partial thyroidectomy,left arm/infiltratra Alcohol Use: None Drug Use: None General Adult EDM: Chief Complaint: HYPOGLYCEMIA HPI: HPI: ".. I don't know.... They just sent me... here.. the hospital...".." They said ..my sugars... were low..." Patient is a 66 year old male who presents with above hx and complaints of hypoglycemia with mental status change. Pt. is a 66-year-old male from the [facility]. Patient a resident of the shelter since 04/12/2021. Patient was found to have mental status change today. Patient per shelter was found to have a glucose of 56. Was given oral glucose. But no significant change in his mental status. Paramedics advised on their arrival his glucose check was 21. After bolus of the D10- 250 cc patient mental status improved. Patient reportedly has had no recent changes in his diabetic meds. Patient has past medical history of diabetes type 2, hx. healthcare/ hospital acquired pneumonia. Chronic obstructive pulmonary disease with occasional exacerbations, hyperlipidemia, diastolic and systolic heart failure, chronic kidney disease stage III, hypothyroidism, arteriosclerotic heart disease, proximal atrial fibrillation, essential hypertension, frequent falls, gait disorder, deconditioning, and dementia. Patient normally follows with at shelter. After arrival in the ED required 3 additional doses of D50 maintained glucose levels. Patient has very poor historian. residential records lost during transport. Review of Systems: Review of Systems: Constitutional: Denies fever or chills Eyes: Denies change in visual acuity HENT: Denies nasal congestion or sore throat Respiratory: Denies cough or shortness of breath Cardiovascular: Denies chest pain or edema GI: Denies abdominal pain, nausea, vomiting, bloody stools or diarrhea : Denies dysuria Musculoskeletal: Denies back pain or joint pain Integument: Denies rash Neurologic: Denies headache, focal weakness or sensory changes Endocrine: Denies polyuria or polydipsia Lymphatic: Denies swollen glands Psychiatric: Denies depression or anxiety Family History: Family History: Not currently available Current Medications: Current Meds: See nursing for shelter meds Allergies: Allergies: Allergies Coded Allergies Type Severity Reaction Last Updated Verified garlic Allergy Intermediate 09/07/21 Yes hydrocodone Allergy Intermediate 09/07/21 Yes levofloxacin Allergy Intermediate Rash 09/07/21 Yes niacin Allergy Intermediate 09/07/21 Yes Physical Exam: PE: Constitutional: , no acute distress, confused and appearance. [] HENT: Normocephalic, atraumatic, bilateral external ears normal, oropharynx moist, no oral exudates, nose normal. [] Eyes: PERRLA, EOMI, conjunctiva normal, no discharge. [] Neck: Normal range of motion, no tenderness, supple, no stridor. [] Cardiovascular:Heart rate regular rhythm, no murmur, PMI to the left Lungs & Thorax: Bilateral breath sounds equal apex with scattered wheezes and basilar crackles auscultation [] Abdomen: Bowel sounds normal, soft, no tenderness, no masses, no pulsatile masses. Obese. Skin: Warm, dry, no erythema, no rash. Poor turgor. Venous stasis. Left arm scarring left leg scarring Back: No tenderness, no CVA tenderness. [] Extremities: No tenderness, no cyanosis, no clubbing, moves extremities on request, lateral ankle edema. [] Neurologic: Alert and oriented X 3, moves extremities on request, decreased plantar sensory, no new focal deficits reported Psychologic: Affect flat, judgement appears to be impaired, mood normal. [] Current Patient Data: Labs: Laboratory Tests Test 09/07/21 02:11 09/07/21 02:20 Glucose (Fingerstick) 129 mg/dL (70-99) H White Blood Count 7.6 x10^3/uL (4.0-11.0) Red Blood Count 3.42 x10^6/uL (4.30-5.70) L Hemoglobin 11.6 g/dL (13.0-17.5) L Hematocrit 34.5 % (39.0-53.0) L Mean Corpuscular Volume 101 fL (79-100) H Mean Corpuscular Hemoglobin 34 pg (25-35) Mean Corpuscular Hemoglobin Concent 34 g/dL (31-37) Red Cell Distribution Width 16.7 % (11.5-14.5) H Platelet Count 189 x10^3/uL (140-400) Neutrophils (%) (Auto) 79 % (31-73) H Lymphocytes (%) (Auto) 13 % (24-48) L Monocytes (%) (Auto) 6 % (0-9) Eosinophils (%) (Auto) 1 % (0-3) Basophils (%) (Auto) 1 % (0-3) Neutrophils # (Auto) 6.0 x10^3uL (1.8-7.7) Lymphocytes # (Auto) 1.0 x10^3/uL (1.0-4.8) Monocytes # (Auto) 0.4 x10^3/uL (0.0-1.1) Eosinophils # (Auto) 0.1 x10^3/uL (0.0-0.7) Basophils # (Auto) 0.1 x10^3/uL (0.0-0.2) Sodium Level 144 mmol/L (136-145) Potassium Level 3.4 mmol/L (3.5-5.1) L Chloride Level 103 mmol/L (98-107) Carbon Dioxide Level 36 mmol/L (21-32) H Anion Gap 5 (6-14) L Blood Urea Nitrogen 47 mg/dL (8-26) H Creatinine 2.8 mg/dL (0.7-1.3) H Estimated GFR (Cockcroft-Gault) 22.6 BUN/Creatinine Ratio 17 (6-20) Glucose Level 104 mg/dL (70-99) H Calcium Level 8.7 mg/dL (8.5-10.1) Total Bilirubin 0.4 mg/dL (0.2-1.0) Aspartate Amino Transferase (AST) 20 U/L (15-37) Alanine Aminotransferase (ALT) 27 U/L (16-63) Alkaline Phosphatase 106 U/L (46-116) Total Protein 6.6 g/dL (6.4-8.2) Albumin 3.0 g/dL (3.4-5.0) L Albumin/Globulin Ratio 0.8 (1.0-1.7) L Vital Signs: Vital Signs Date Time Temp Pulse Resp B/P (MAP) Pulse Ox O2 Delivery O2 Flow Rate FiO2 09/07/21 02:18 70 24 130/56 (80) 99 EKG: EKG: [] Radiology/Procedures: Radiology/Procedures: [][address] [place] [id number] IMAGING REPORT Signed PATIENT: MELISSA DIAZ ACCOUNT: [id number] : 1955 LOCATION: ER AGE: 66 SEX: M EXAM STATUS: REG ER ORD. PHYSICIAN: AMBER JACOBSON MD REASON: AMS, lethargic, weakness PROCEDURE: CT HEAD WO CONTRAST EXAM: CT Head without IV contrast CLINICAL HISTORY: Reason: AMS, lethargic, weakness / Spl. Instructions: / History: COMPARISON: 04/24/2021 TECHNIQUE: Routine CT of the head without contrast. PQRS compliance statement - One or more of the following individualized dose reduction techniques were utilized for this study: 1. Automated exposure control 2. Adjustment of the mA and/or kV according to patient size 3. Use of iterative reconstruction technique FINDINGS: There is no evidence of hemorrhage, mass or extra-axial fluid collection. Wilkins-white differentiation is maintained with no evidence of edema. Subcortical, periventricular as well as deep white matter foci of hypoattenuation likely changes of chronic small vessel disease. There is no mass effect or shift of the intracranial structures. The ventricles, basilar cisterns and cortical sulci are normal in size and configuration for the patients stated age. The cerebellum and brainstem are unremarkable. The calvarium demonstrates no evidence of fracture or focal lesion. There is normal aeration of the visualized paranasal sinuses and mastoid air cells. The visualized portions of the orbits are normal. Atherosclerotic calcifications of the intracranial internal carotid and vertebral arteries is seen. IMPRESSION: 1. No evidence for acute intracranial process. 2. White matter changes likely chronic small vessel disease. Electronically signed by: Louie Agarwal MD (09/07/2021 3:21 AM) [facility] DICTATED AND SIGNED BY: LOUIE AGARWAL MD DATE: 09/07/21319 CC: AMBER JACOBSON MD; MELISSA HART PAC IMAGING REPORT Signed PATIENT: MELISSA DIAZ ACCOUNT: [id number] : 1955 LOCATION: ER AGE: 66 SEX: M EXAM STATUS: REG ER ORD. PHYSICIAN: AMBER JACOBSON MD REASON: COUGH, HX PNEUMONIA PROCEDURE: CHEST AP ONLY EXAM: AP View of the chest DATE: 09/07/2021 3:53 AM INDICATION: Reason: COUGH, HX PNEUMONIA / Spl. Instructions: / History: COMPARISON: 05/14/2021 FINDINGS/ IMPRESSION: Heart is moderately enlarged, stable. Cardiac generator pack obscures a portion of the left chest with leads in stable position. Mediastinal and hilar contours are stable. Patchy bibasilar airspace opacities are grossly stable. No pleural effusion or pneumothorax. Electronically signed by: Louie Agarwal MD (09/07/2021 4:10 AM) [facility] DICTATED AND SIGNED BY: LOUIE AGARWAL MD DATE: 09/07/21 0409 CC: AMBER JACOBSON MD; MELISSA HART PAC ~ Heart Score: C/O Chest Pain: N/A Risk Factors: Risk Factors: DM, Current or recent (<one month) smoker, HTN, HLP, family history of CAD, obesity. Risk Scores: Score 0 - 3: 2.5% MACE over next 6 weeks - Discharge Home Score 4 - 6: 20.3% MACE over next 6 weeks - Admit for Clinical Observation Score 7 - 10: 72.7% MACE over next 6 weeks - Early Invasive Strategies Course & Med Decision Making: Course & Med Decision Making Pertinent Labs and Imaging studies reviewed. (See chart for details) Discussed presentation, testing and Tx. plan with Dr. Maldonado. Admit to his service.. Continue frequent monitoring of glucose levels.. Impression: 1. Hypoglycemia- recurrent 2. Mental status change 3. Anemia hemoglobin 11.6 4. Renal insufficiency BUN 47 creatinine 2.8 5. History of diabetes 6. History of dementia 7. History of diabetes [] Dragon Disclaimer: Dragon Disclaimer: This electronic medical record was generated, in whole or in part, using a voice recognition dictation system. Departure Departure: Referrals: MELISSA HART PAC (PCP) Ayush Disclaimer This chart was dictated in whole or in part using Voice Recognition software in a busy, high-work load, and often noisy Emergency Department environment. It may contain unintended and wholly unrecognized errors or omissions. Dragon Disclaimer This chart was dictated in whole or in part using Voice Recognition software in a busy, high-work load, and often noisy Emergency Department environment. It may contain unintended and wholly unrecognized errors or omissions. Dragon Disclaimer This chart was dictated in whole or in part using Voice Recognition software in a busy, high-work load, and often noisy Emergency Department environment. It may contain unintended and wholly unrecognized errors or omissions. AMBER JACOBSON MD Sep 07, 2021 03:22
[2021-09-07] MEDS ORDERED: IV DEXTROSE 10% 1,000 ML IV ONE ×2 (04:00→05:00)
--- NOTE | 2021-09-07 04:12 | RAD ---
EXAM: AP View of the chest DATE: 09/07/2021 3:53 AM INDICATION: Reason: COUGH, HX PNEUMONIA / Spl. Instructions: / History: COMPARISON: 05/14/2021 FINDINGS/ IMPRESSION: Heart is moderately enlarged, stable. Cardiac generator pack obscures a portion of the left chest wit h leads in stable position. Mediastinal and hilar contours are stable. Patchy bibasilar airspace opacities are grossly stable. No pleural effusion or pneumothorax. Electronically signed by: Louie Flores MD (09/07/2021 4:10 AM) DAVID
[2021-09-07] MEDS ORDERED: ONDANSETRON PF 4 MG/2 ML VIAL. IVP PRN (04:30)
[2021-09-07] MEDS ORDERED: ACETAMINOPHEN 325 MG TABLET PO PRN (04:30)
[2021-09-07 04:34] LABS: BACTERIA,URINE 0 /HPF (0-FEW); CLARITY,URINE CLEAR; COLOR,URINE YELLOW; GLUCOSE,URINE NEG (NEG); NITRITE,URINE NEG (NEG); RBC,URINE 0 /HPF (0-2); UROBILINOGEN,URINE 0.2 mg/dL (0.2 mg/dL); WBC,URINE 0 /HPF (0-4)
[2021-09-07 04:44] LABS: INFLUENZA A PATIENT NEGATIVE (NEGATIVE); INFLUENZA B PATIENT NEGATIVE (NEGATIVE)
[2021-09-07 06:23] VITALS: BP 153/87
[2021-09-07] MEDS ORDERED: NALOXONE 0.4 MG/ML VIAL. IV ONE (07:00)
[2021-09-07] MEDS ORDERED: IPRATRPIUM/ALBUTEROL 0.5/2.5MG 3 ML NEBU. NEB SCH (08:00)
== END 2021-09-07 08:30 | disposition short-term general hospital (02) ==
LOC: ER 02:04 → INTOOBSV 05:08 → 1 SOUTH 05:08
PROVIDERS: ADMIT Internal Medicine; ATTEND Internal Medicine
DX: U07.1 COVID-19 (principal); E11.649 Type 2 diabetes mellitus with hypoglycemia without coma; R41.82 Altered mental status, unspecified; D64.9 Anemia, unspecified; F03.90 Unspecified dementia, unspecified severity, without behavioral disturbance, psychotic disturbance, mood disturbance, and anxiety; I25.10 Atherosclerotic heart disease of native coronary artery without angina pectoris; I48.91 Unspecified atrial fibrillation; I11.0 Hypertensive heart disease with heart failure; I50.9 Heart failure, unspecified; J44.9 Chronic obstructive pulmonary disease, unspecified; E03.9 Hypothyroidism, unspecified; E78.00 Pure hypercholesterolemia, unspecified; E78.5 Hyperlipidemia, unspecified; N28.9 Disorder of kidney and ureter, unspecified; R29.6 Repeated falls; Z87.01 Personal history of pneumonia (recurrent); Z87.442 Personal history of urinary calculi; Z95.5 Presence of coronary angioplasty implant and graft; Z79.899 Other long term (current) drug therapy; Z98.890 Other specified postprocedural states
CPT/HCPCS: 36415; 70450; 71045; 80053; 81001; 82947; 83605; 83880; 84484; 85025; 87040; 87428; 94640; 96361; 96374; 96375; 99285; G0378; J2310; U0003; G0379

== ENCOUNTER 2021-09-29 18:35 | Inpatient (IN) | payer OTHER, MEDICAID ==
[~2021-09-29] VITALS: Ht 182.9 cm; Wt 142.3 kg
--- NOTE | 2021-09-29 18:43 | PHYS DOC ---
Past History Past Medical History: Anxiety, Arthritis, CHF, COPD, Diabetes, High Cholesterol, Hypertension, Hypothyroid, Kidney Stones, [place], Other Additional Past Medical Histor: radial dermatitis(back pain), mi '08 Past Surgical History: Other Additional Past Surgical Histo: cardiac stents,l4-l5,debrideback,partial thyroidectomy,left arm/infiltratra Alcohol Use: None Drug Use: None General Adult EDM: Chief Complaint: CHEST PAIN HPI: HPI: Patient is a 66-year-old male who is here from a long-term facility with report of chest pain. Chest pain began several hours ago. He describes midsternal left-sided chest pain, which radiates to his left shoulder. He jaquelin cribes the pain as constant, pressure-like. He reports mild shortness of breath. Denies pleuritic pain. Denies cough or mopped assist. He does report mild dizziness and diaphoresis. He denies nausea, no vomiting. He denies abdominal pain. He was given a total of 4 nitroglycerin at the long-term facility, he reports no improvement in pain. No aspirin was given. He has a history of previous DE and coronary disease and CABG. He has been at the long-term facility for over 9 months. He reports he is there "to learn how to walk again." He denies fall, syncope, near syncope. He has chronic lower extremity swelling, which is slightly worse over the last few days. No reported changes in medications. He reports compliance with medications. No recent fevers or chills. Review of Systems: Review of Systems: Constitutional: Denies fever or chills Eyes: Denies change in visual acuity HENT: Denies nasal congestion or sore throat Respiratory: Denies cough or hemoptysis. Shortness of breath. Cardiovascular: Chest pain. Bilateral lower extremity edema. GI: Denies abdominal pain. Reports one episode of nausea, no vomiting. : Denies urinary symptoms. Musculoskeletal: Denies back pain or joint pain Integument: Denies rash Neurologic: Denies headache, focal weakness or sensory changes Psychiatric: Denies depression or anxiety Allergies: Allergies: Allergies Coded Allergies Type Severity Reaction Last Updated Verified garlic Allergy Intermediate 09/07/21 Yes hydrocodone Allergy Intermediate 09/07/21 Yes levofloxacin Allergy Intermediate Rash 09/07/21 Yes niacin Allergy Intermediate 09/07/21 Yes Physical Exam: PE: Constitutional: Well developed, well nourished, no acute distress, non-toxic appearance. Chronically ill appearing male, appears older than stated age. HENT: Normocephalic, atraumatic Eyes: PERRL, EOMI, conjunctiva normal, no discharge. [] Neck: Normal range of motion, no tenderness, supple, no stridor. Trachea is midline. Cardiovascular:Heart rate regular rhythm, +2 radial and PT pulses bilaterally. Lungs & Thorax: Diminished breath sounds in bilateral bases, fine bibasilar rales. Upper and midlung hooker are clear to auscultation. No rhonchi, no stridor, no wheezing. No retractions. Speaks in full and clear sentences. No evidence of respiratory distress Abdomen: Abdomen is obese, soft, nondistended, nontender to palpation. No palpable masses organomegaly. No fluid wave or obvious ascites. No CVA tenderness Skin: Warm, dry, no erythema, no rash. [] Back: No tenderness, no CVA tenderness. [] Extremities: No tenderness, no cyanosis, no clubbing, ROM intact, bilateral 2+ lower extremity pitting edema. No calf tenderness. Neurologic: Alert and oriented X 3, normal motor function, normal sensory function, no focal deficits noted. [] Psychologic: Affect is flat, he is cooperative. EKG: EKG: EKG is interpreted at 1842 Rhythm is sinus Rate is 70 bpm Artemus is normal Low voltage No STEMI Radiology/Procedures: Radiology/Procedures: IMAGING REPORT Signed PATIENT: MELISSA DIAZ ACCOUNT: [id number] : 1955 LOCATION: ER AGE: 66 SEX: M EXAM STATUS: REG ER ORD. PHYSICIAN: NEERAJ GARCIA DO REASON: chest pain PROCEDURE: PORTABLE CHEST 1V Exam: Chest one view INDICATION: Chest pain, shortness of breath TECHNIQUE: Frontal view of the chest Comparisons: 09/07/2021 FINDINGS: A CT with leads terminating the right heart. Sternotomy wires are noted. Heart is mildly enlarged. Pulmonary vessels are within normal limits. Hazy opacities lungs bilaterally. No pleural effusion. IMPRESSION: Is opacity at lung bases bilaterally, may relate to edema or atypical infectious process. Electronically signed by: Mello Luz MD (09/29/2021 7:30 PM) [facility] DICTATED AND SIGNED BY: MELLO LUZ MD DATE: 09/29/211923 CC: NEERAJ GARCIA DO; MELISSA HART PAC ~ IMAGING REPORT Signed PATIENT: MELISSA DIAZ ACCOUNT: [id number] : 1955 LOCATION: ER AGE: 66 SEX: M EXAM STATUS: REG ER ORD. PHYSICIAN: NEERAJ GARCIA DO REASON: LE swelling, pain PROCEDURE: VENOUS LOWER EXT BILATERAL Bilateral Lower Extremity Venous Doppler: Reason for examination: Bilateral lower extremity swelling and pain. The lower extremity venous systems bilaterally were evaluated from the common femoral and greater saphenous veins distally to the calf veins with grayscale imaging, color-flow imaging and spectral analysis. There is normal blood flow without deep venous thrombosis. There is normal response of the venous systems to compression and augmentation. Impression: No deep venous thrombosis in the lower extremity venous systems bilaterally. Electronically signed by: Lauro Chew MD (09/29/2021 10:18 PM) [facility] DICTATED AND SIGNED BY: LAURO CHEW MD DATE: 09/29/212216 CC: NEERAJ GARCIA DO; MELISSA HART PAC ~ Heart Score: C/O Chest Pain: Yes HEART Score for Chest Pain: HEART Score for Chest Pain Response (Comments) Value Age > 65 2 Risk Factors >3 Risk Factors or Hx CAD 2 Troponin < Normal Limit 0 Total 4 Risk Factors: Risk Factors: DM, Current or recent (<one month) smoker, HTN, HLP, family history of CAD, obesity. Risk Scores: Score 0 - 3: 2.5% MACE over next 6 weeks - Discharge Home Score 4 - 6: 20.3% MACE over next 6 weeks - Admit for Clinical Observation Score 7 - 10: 72.7% MACE over next 6 weeks - Early Invasive Strategies Course & Med Decision Making: Course & Med Decision Making Pertinent Labs and Imaging studies reviewed. (See chart for details) The patient is given aspirin and IV morphine. He is resting comfortably. Vital signs are stable. He manifests no evidence of distress. No hypoxia. Bilateral venous Dopplers are negative for DVT. D-dimer is mildly elevated, though age-adjusted D-dimer indicates venous thrombosis embolism unlikely. EKG is nonspecific. Troponin assays negative. I have discussed the findings, differential diagnosis and plan of care with him. I recommended hospitalization for continued serial troponin exams, cardiology consultation and echocardiogram in the morning. He is comfortable with the plan of care. IV Lasix given. Dr. Maldonado accepts him for admission. Dragon Disclaimer: Dragon Disclaimer: This electronic medical record was generated, in whole or in part, using a voice recognition dictation system. Departure Departure: Impression: Primary Impression: Chest pain Qualified Codes: R07.9 - Chest pain, unspecified Additional Impressions: Acute on chronic systolic CHF (congestive heart failure) Coronary artery disease Qualified Codes: I25.10 - Atherosclerotic heart disease of [place] coronary artery without angina pectoris History of DE (myocardial infarction) Disposition: ADMITTED INPATIENT Admitting Physician: Martin Maldonado Condition: STABLE Referrals: MELISSA HART (PCP) NEERAJ GARCIA DO September 29, 2021 18:43
[2021-09-29] MEDS ORDERED: ONDANSETRON PF 4 MG/2 ML VIAL. IVP ONE (19:00)
[2021-09-29] MEDS ORDERED: ASPIRIN ENTERIC COATED 325 MG TABLET.DR. PO ONE (19:00)
[2021-09-29] MEDS ORDERED: MORPHINE SULFATE 4 MG/ML DISP.SYRIN. IV ONE ×3 (19:00→22:30)
[2021-09-29 19:09] LABS: BASO # 0.1 x10^3/uL (0.0-0.2); BASO % 1 % (0-3); EOS # 0.2 x10^3/uL (0.0-0.7); EOS % 2 % (0-3); HEMATOCRIT 32.4 % (39.0-53.0); HEMOGLOBIN 10.7 g/dL (13.0-17.5); LYMPH # 1.7 x10^3/uL (1.0-4.8); LYMPH % 22 % (24-48); MEAN CORPUSCULAR HEMOGLOBIN 34 pg (25-35); MEAN CORPUSCULAR HGB CONC 33 g/dL (31-37); MEAN CORPUSCULAR VOLUME 102 fL (79-100); MONO # 0.7 x10^3/uL (0.0-1.1); MONO % 9 % (0-9); NEUT % 66 % (31-73); PLATELET COUNT 175 x10^3/uL (140-400); RED BLOOD COUNT 3.17 x10^6/uL (4.30-5.70); RED CELL DISTRIBUTION WIDTH 16.7 % (11.5-14.5); WHITE BLOOD COUNT 7.5 x10^3/uL (4.0-11.0)
[2021-09-29 19:11] LABS: CALCIUM 8.4 mg/dL (8.5-10.1); CREATININE 2.9 mg/dL (0.7-1.3); GFR 21.7; POTASSIUM 4.1 mmol/L (3.5-5.1)
[2021-09-29 19:24] LABS: ALBUMIN 2.8 g/dL (3.4-5.0); ALBUMIN/GLOBULIN RATIO 0.7 (1.0-1.7); MAGNESIUM 2.2 mg/dL (1.8-2.4); TOTAL BILIRUBIN 0.4 mg/dL (0.2-1.0); TOTAL PROTEIN 6.7 g/dL (6.4-8.2)
--- NOTE | 2021-09-29 19:32 | RAD ---
Exam: Chest one view INDICATION: Chest pain, shortness of breath TECHNIQUE: Frontal view of the chest Comparisons: 09/07/2021 FINDINGS: A CT with leads terminating the right heart. Sternotomy wires are noted. Heart is mildly enlarged. Pulmonary vessels are within normal limits. Hazy opacities lungs bilaterally. No pleural effusion. IMPRESSION: Is opacity at lung bases bilaterally, may relate to edema or atypical infectious process. Electronically signed by: Mello Benavidez MD (09/29/2021 7:30 PM) [facility]
[2021-09-29 20:47] LABS: BARBITURATES NEG (NEG); BENZODIAZEPINES NEG (NEG); CANNABINOIDS NEG (NEG); COCAINE NEG (NEG); METHADONE NEG (NEG); OPIATES NEG (NEG); PHENCYCLIDINE NEG (NEG)
[2021-09-29 20:49] LABS: AMPHETAMINE/METHAMPHETAMINE NEG (NEG); CLARITY,URINE CLEAR; COLOR,URINE YELLOW; GLUCOSE,URINE NEG (NEG)
[2021-09-29 20:50] LABS: BACTERIA,URINE 0 /HPF (0-FEW); NITRITE,URINE NEG (NEG); RBC,URINE 0 /HPF (0-2); UROBILINOGEN,URINE 0.2 mg/dL (0.2 mg/dL); WBC,URINE 0 /HPF (0-4)
--- NOTE | 2021-09-29 20:54 | EKG ---
[address] [address] Test Date: 2021-09-29 Test Time: 18:39:50 Pat Name: MELISSA DIAZ Department: Room: Gender: M Pest Controller Assistant: : 1955 Requested By: NEERAJ GARCIA Order Number: [id number] Reading MD: Maurice Barrett MD Measurements Intervals [place] Rate: 70 P: 107 [place]: 154 QRS: 14 QRSD: 108 T: 49 QT: 478 QTc: 520 Interpretive Statements A-PACED 1ST DEGREE AVB Electronically Signed On 10-03-2021 9:03:58 CDT by Maurice Barrett MD
[2021-09-29] MEDS ORDERED: FUROSEMIDE 40 MG/4 ML VIAL IVP ONE (22:15)
--- NOTE | 2021-09-29 22:20 | RAD ---
Bilateral Lower Extremity Venous Doppler: Reason for examination: Bilateral lower extremity swelling and pain. The lower extremity venous systems bilaterally were evaluated from the common femoral and greater sap henous veins distally to the calf veins with grayscale imaging, color-flow imaging and spectral sammi sis. There is normal blood flow without deep venous thrombosis. There is normal response of the venous sys tems to compression and augmentation. Impression: No deep venous thrombosis in the lower extremity venous systems bilaterally. Electronically signed by: Mariana Tay MD (09/29/2021 10:18 PM) EMILI
--- NOTE | 2021-09-29 22:37 | EKG ---
[address] [address] Test Date: 2021-09-29 Test Time: 22:07:27 Pat Name: MELISSA DIAZ Department: Room: Gender: M Blender / Cook: STEPHON : 1955 Requested By: NEERAJ GARCIA Order Number: [id number] Reading MD: Maurice Barrett MD Measurements Intervals [place] Rate: 70 P: [place]: QRS: 4 QRSD: 112 T: 54 QT: 466 QTc: 507 Interpretive Statements PROBABLE SR Electronically Signed On 10-03-2021 9:03:17 CDT by Maurice Barrett MD
[2021-09-29] MEDS ORDERED: MORPHINE SULFATE 4 MG/ML DISP.SYRIN. IV PRN (23:15)
[2021-09-29] MEDS ORDERED: ONDANSETRON PF 4 MG/2 ML VIAL. IVP PRN (23:15)
[2021-09-30 00:51] VITALS: BP 127/79
--- NOTE | 2021-09-30 01:23 | NUR ---
PT ADMITTED TO [facility] 109 VIA EMS ACCOMPANIED BY NURSING TAX ATTORNEY. PT ASSISTED X3 FROM GURNEY TO BED. VS OBTAINED. POC DISCUSSED W/ VERBALIZED UNDERSTANDING. CALL LIGHT IN REACH WILL CONTINUE TO MONITOR.
[2021-09-30] MEDS ORDERED: HYDR25TA PO (03:11)
[2021-09-30] MEDS ORDERED: CALC-157 PO (03:11)
[2021-09-30] MEDS ORDERED: PRIM50TA24 PO (03:11)
[2021-09-30] MEDS ORDERED: POTA-112 PO (03:11)
[2021-09-30] MEDS ORDERED: BUME2TAB3 PO (03:14)
[2021-09-30] MEDS ORDERED: DEXTROSE 50% 25 GM / 50ML DISP.SYRIN. IV PRN (03:15)
[2021-09-30] MEDS ORDERED: POLYETHYLENE GLYCOL 3350 17 GM PACKET. PO PRN (03:30)
[2021-09-30] MEDS ORDERED: oxyCODONE IR 5 MG TABLET PO PRN (03:30)
[2021-09-30] MEDS ORDERED: NITROGLYCERIN SUBLINGUAL 0.4 MG BOTTLE OF 25. SL PRN (03:30)
[2021-09-30] MEDS ORDERED: ALBUTEROL SULFATE 2.5 MG/3 ML NEBU. INH PRN (03:30)
[2021-09-30] MEDS: LEVOTHYROXINE 150 MCG TABLET PO SCH (05:18)
[2021-09-30 05:50] VITALS: BP 135/85
[2021-09-30] MEDS: IPRATRPIUM/ALBUTEROL 0.5/2.5MG 3 ML NEBU. NEB SCH ×4 (07:09→20:51)
[2021-09-30] MEDS: CITALOPRAM 20 MG TABLET. PO SCH (08:36)
[2021-09-30] MEDS: RANOLAZINE 500 MG TAB.ER.12H PO SCH ×2 (08:37→21:07)
[2021-09-30] MEDS: CLOPIDOGREL BISULFATE 75 MG TABLET PO SCH (08:37)
[2021-09-30] MEDS: PANTOPRAZOLE 40 MG TABLET. PO SCH (08:37)
[2021-09-30] MEDS: PREGABALIN 75 MG CAPSULE PO SCH ×3 (08:37→21:05)
[2021-09-30] MEDS: ISOSORBIDE MONONITRATE ER 30 MG TAB.ER.24H PO SCH (08:38)
[2021-09-30] MEDS: hydrOXYzine HCL 25 MG TABLET PO SCH ×3 (08:39→21:00)
[2021-09-30] MEDS: CALCIUM CARB/VIT D3 500/200 TABLET PO SCH ×2 (08:39→21:06)
[2021-09-30] MEDS: AMIODARONE HCL 200 MG TABLET. PO SCH (08:39)
[2021-09-30] MEDS: DOCUSATE SODIUM 100 MG CAPSULE PO SCH ×2 (08:39→21:05)
[2021-09-30] MEDS: CARVEDILOL 12.5 MG TABLET PO SCH ×2 (08:40→17:51)
[2021-09-30] MEDS: METHYL SALICYLATE/MENTHOL TOPICAL OINTMENT 57GM TUBE. TP SCH ×3 (08:40→21:00)
[2021-09-30] MEDS: INSULIN LISPRO 300 UNITS/3 ML VIAL. SQ SCH ×3 (08:42→17:00)
[2021-09-30] MEDS: INSULIN GLARGINE SYRINGE. SQ SCH ×2 (08:44→21:08)
[2021-09-30 10:30] VITALS: BP 108/64
[2021-09-30] MEDS ORDERED: FUROSEMIDE 40 MG/4 ML VIAL IVP ONE (12:45)
--- NOTE | 2021-09-30 13:16 | HP ---
DATE OF SERVICE: 09/30/2021 ADMIT DATE: 09/29/2021 HISTORY OF PRESENT ILLNESS: The patient is a 66-year-old male patient, a resident at [facility], who was brought to the Emergency Room with a complaint of chest pain that started several hours prior to arrival. He describes midsternal, left sided chest pain, which radiates to his left shoulder. He described the pain as constant pressure like. He reports mild shortness of breath. Denies pleuritic pain. Denied any cough or nausea or vomiting. Denied any abdominal pain. Denied any diaphoresis. Did report mild dizziness and he was given a total of 4 nitroglycerin at the [facility] and he reports no improvement in pain. No aspirin was given. He has a history of previous myocardial infarction, coronary artery disease and CABG. He has been at the [facility] for over 9 months. He reports he is here to learn how to walk again. He denied any fall, syncope or near syncope. He has chronic lower extremity swelling, which is slightly worse over the last few days. No reported changes in medication. He reports compliance with medication. No recent fever or chills. He was extensively investigated and has had lab work, EKG and imaging studies. His EKG showed that he was in normal sinus rhythm at a rate of 70 beats per minute with normal axis, low voltage, no STEMI. His chest x-ray showed sternotomy wires are noted, heart is mildly enlarged, pulmonary vessels are within normal limits, hazy opacities in both lungs bilaterally, no pleural effusion. He did have bilateral lower extremity venous Doppler ultrasound, which showed no evidence of deep vein thrombosis in the lower extremity venous system bilaterally. The patient had lab work including a CBC that showed that he has normochromic normocytic anemia. His prothrombin time, INR, APTT are normal. D-dimer was slightly elevated at 1.09. His chemistry showed that he has chronic kidney disease. His beta natriuretic peptide was high at 3121. His first set troponin I high sensitivity was only 12. The patient was admitted to do 2 more sets of cardiac enzyme and was treated with IV Lasix for congestive heart failure and to consult the framing machine tender. PAST MEDICAL HISTORY: Significant for type 2 diabetes mellitus of longstanding, hypertension, hyperlipidemia, coronary artery disease status post myocardial infarction in 2007. In 2007, he underwent percutaneous coronary intervention with stent deployment x 9. He has also coronary artery bypass graft surgery, had cardiac arrest x 2. He apparently had left upper extremity compartment syndrome that required fasciotomy. Has a lung nodule that is followed closely. Had acute kidney injury twice, once with compartment syndrome when he was in [place] for 2 months and few months ago. He was treated with IV fluids for acute kidney injury. He is known to have benign prostatic hypertrophy, TIA, chronic obstructive pulmonary disease, obstructive sleep apnea. He is currently on 2 liters of oxygen by nasal cannula. 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 ALLERGIES: SHE IS ALLERGIC TO LEVOFLOXACIN AND NIACIN. FAMILY HISTORY: He has 1 sister who has coronary artery disease. His father in his 60s and mother in her 60s due to congestive heart failure. SOCIAL HISTORY: He is , has 2 daughters alive, 1 daughter when she was only 4 months old. One son because of congenital heart disease at the age of 10 years and 1 son was electrocuted. He continues to smoke about 6 cigarettes a day. He does not drink alcohol or use recreational drugs. He is currently retired. 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 MEDICATIONS: He is currently on the following medications: He is on Lantus insulin 15 units at bedtime, primidone 12.5 mg at bedtime, Singulair 10 mg at bedtime, baclofen 20 mg at bedtime, Ranexa 1000 mg twice a day, analgesic balm 1 application 3 times a day, isosorbide mononitrate 120 mg once a day, citalopram hydrobromide 40 mg once a day, pregabalin 75 mg 3 times a day, hydroxyzine 25 mg 3 times a day, Colace 100 mg twice a day, Plavix 75 mg daily, calcium with vitamin D 1 tablet twice a day, amiodarone 200 mg daily, Lantus insulin 30 units daily, albuterol/Atrovent 3 mL by nebulizer 4 times a day, carvedilol 12.5 mg twice a day. He is on NovoLog insulin as insulin sliding scale, Protonix 40 mg daily, levothyroxine sodium 300 mcg once a day, polyethylene glycol 17 grams daily, oxycodone 5 mg every 4 hours, nitroglycerin 0.4 mg sublingually every 5 minutes x 3 as needed. He is on albuterol sulfate 2.5 mg by nebulizer every 4 hours, morphine sulfate 4 mg IV every 4 hours and ondansetron 4 mg IV every 4 hours. PHYSICAL EXAMINATION: GENERAL: On arrival to the Emergency Room, the patient looked well and was clearly in no apparent respiratory distress. He was somewhat pale, not jaundiced or cyanosed, no lymphadenopathy, no thyromegaly, no jugular venous distension. No lower limb edema. VITAL SIGNS: His heart rate was 70, blood pressure 134/71, temperature 97.9, respiratory rate was 16 and oxygen saturation was 98% on room air. HEAD, EYES, EARS, NOSE, AND THROAT: Normocephalic, atraumatic. NECK: Supple. HEART: Showed normal first and second heart sounds. No gallop or murmur. CHEST: Shows central trachea, equal bilateral chest expansion, air entry, vesicular breath sounds. Bilateral basal crepitation posteriorly. I could not appreciate any rhonchi. ABDOMEN: Distended, soft, nontender. NEUROLOGIC: He was grossly intact. He has marked bilateral lower extremity edema. Scars and previous fasciotomy in his left upper extremity. LABORATORY DATA: On arrival showed a white cell count 7.5, hemoglobin 11, hematocrit 32, MCV 102 and platelet count of 175,000, with normal manual differential. His serum sodium 143, potassium 4.1, chloride 101, bicarbonate 35, anion gap of 7, BUN 49, creatinine 1.9. Estimated GFR was 21 mL per minute. His glucose 132, calcium was 8.4, magnesium was 2.2. Total bilirubin, AST, ALT, alkaline phosphatase are normal. CK was 62. First troponin I high sensitivity was 12. Beta natriuretic peptide was 3121. Total protein 6.7, albumin 2.8 and serum lipase was 120. His prothrombin time, INR and APTT normal. D-dimer was slightly elevated at 1.09. Urinalysis essentially unremarkable and toxic screen was negative. Chest x-ray showed there is opacity in the lung bases bilaterally, may relate to edema or atypical infectious process. Bilateral venous Doppler ultrasound of both lower extremities showed no evidence of deep vein thrombosis. PLAN: The patient was treated with IV Lasix together with morphine and ondansetron. We will do 2 more sets of cardiac enzyme and consult the framing machine tender and decide the further management accordingly. CODY/SHIRA DR: CODY/leslee TID: [id number]
[2021-09-30 15:56] VITALS: BP 122/78
--- NOTE | 2021-09-30 16:09 | PDOC2 ---
CONSULT DOS: DATE: 09/30/21 TIME: 15:52 Reason for Consult: Chest pain Referring Physician: Dr. Maldonado Chief Complaint Chest pain Source: Chart review, Patient Problem List Problems Medical Problems: (1) Chest pain Status: Acute (2) Coronary artery disease Status: Acute (3) History of MN (myocardial infarction) Status: Acute History of Present Illness 66-year-old male with history of coronary artery disease s/p coronary artery bypass surgery in 2007, usually followed by Dr. Amin was brought to ED from [facility] with left-sided chest pain that he described as stabbing in nature, 8/10 severity associated with mild shortness of breath. The pain was not relieved with sublingual nitroglycerin given to him at the longterm facility but has resolved since he has been admitted. He denied any orthopnea/PND, palpitations or syncope. He did complain of bilateral lower extremity edema but stated that it has been stable. Past Medical History Coronary artery disease s/p CABG Paroxysmal atrial fibrillation Ischemic cardiomyopathy s/p AICD implantation Chronic systolic heart failure Hypertension Hyperlipidemia COPD Obstructive sleep apnea TIA Past Surgical History Coronary artery bypass surgery AICD implantation Left upper extremity fasciotomy Laminectomy Thyroidectomy Family History Coronary artery disease Hypertension Congestive heart failure Social History Patient smokes approximately 10 cigarettes daily and denied any alcohol or drug use Current Medications Current Medications Aspirin (Aspirin Enteric Coated) 325 mg 1X ONCE PO Last administered on 09/29/21at 19:19; Start 09/29/21 at 19:00; Stop 09/29/21 at 19:15; Status DC Morphine Sulfate (Morphine 4mg Syringe) 4 mg 1X ONCE IV Last administered on 09/29/21at 19:19; Start 09/29/21 at 19:00; Stop 09/29/21 at 19:15; Status DC Ondansetron HCl (Zofran) 4 mg 1X ONCE IVP Last administered on 09/29/21at 19:20; Start 09/29/21 at 19:00; Stop 09/29/21 at 19:15; Status DC Morphine Sulfate (Morphine 4mg Syringe) 4 mg 1X ONCE IV Last administered on 09/29/21at 21:16; Start 09/29/21 at 21:30; Stop 09/29/21 at 21:31; Status DC Furosemide (Lasix) 20 mg 1X ONCE IVP Last administered on 5/5/22at 22:39; Start 09/29/21 at 22:15; Stop 09/29/21 at 22:26; Status DC Morphine Sulfate (Morphine 4mg Syringe) 4 mg 1X ONCE IV Last administered on 09/29/21 22:39; Start 09/29/21 at 22:30; Stop 09/29/21 at 22:31; Status DC Ondansetron HCl (Zofran) 4 mg PRN Q4HRS PRN IVP NAUSEA/VOMITING 1ST CHOICE; Start 09/29/21 at 23:15; Stop 09/30/21 at 23:14 Morphine Sulfate (Morphine 4mg Syringe) 4 mg PRN Q4HRS PRN IV chest pain; Start 09/29/21 at 23:15 Insulin Human Lispro (HumaLOG) 0-9 UNITS TIDWMEALS SQ Last administered on 09/30/21at 08:42; Start 09/30/21 at 08:00 Dextrose (Dextrose 50%-Water Syringe) 12.5 gm PRN Q15MIN PRN IV SEE COMMENTS; Start 09/30/21 at 03:15 Albuterol Sulfate (Ventolin) 2.5 mg PRN Q4HRS PRN INH FOR ASTHMA; Start 09/30/21 at 03:30 Amiodarone HCl (Cordarone) 200 mg DAILY PO Last administered on 09/30/21 08:39; Start 09/30/21 at 09:00 Baclofen (Lioresal) 20 mg QHS PO ; Start 09/30/21 at 21:00 Calcium/Vitamin D (Oscal D 500mg/ 200uts) 1 tab BID PO Last administered on 09/30/21 08:39; Start 09/30/21 at 09:00 Carvedilol (Coreg) 12.5 mg BIDWMEALS PO Last administered on 09/30/21 08:40; Start 09/30/21 at 08:00 Clopidogrel Bisulfate (Plavix) 75 mg DAILY PO Last administered on 09/30/21 08:37; Start 09/30/21 at 09:00 Docusate Sodium (Colace) 100 mg BID PO Last administered on 09/30/21 08:39; Start 09/30/21 at 09:00 Hydroxyzine HCl (Atarax) 25 mg TID PO Last administered on 5/6/22at 13:36; Start 09/30/21 at 09:00 Albuterol/ Ipratropium (Duoneb) 3 ml RTQID NEB Last administered on 09/30/21at 11:59; Start 09/30/21 at 08:00 Montelukast Sodium (Singulair) 10 mg HS PO ; Start 09/30/21 at 21:00 Nitroglycerin (Nitrostat) 0.4 mg PRN Q5MIN PRN SL CHEST PAIN; Start 09/30/21 at 03:30 Oxycodone HCl (Roxicodone) 5 mg PRN Q4HRS PRN PO PAIN; Start 09/30/21 at 03:30 Pantoprazole Sodium (Protonix) 40 mg DAILYAC PO Last administered on 09/30/21at 08:37; Start 09/30/21 at 07:30 Polyethylene Glycol (miraLAX) 17 gm PRN DAILY PRN PO CONSTIPATION; Start 09/30/21 at 03:30 Pregabalin (Lyrica) 75 mg TID PO Last administered on 09/30/21at 13:35; Start 09/30/21 at 09:00 Primidone (Mysoline) 12.5 mg QHS PO ; Start 09/30/21 at 21:00 Citalopram Hydrobromide (CeleXA) 40 mg DAILY PO Last administered on 09/30/21 08:36; Start 09/30/21 at 09:00 Insulin Glargine (Lantus Syringe) 15 unit QHS SQ ; Start 09/30/21 at 21:00 Insulin Glargine (Lantus Syringe) 30 unit DAILY08 SQ Last administered on 09/30/21 08:44; Start 09/30/21 at 08:00 Isosorbide Mononitrate (Imdur) 120 mg DAILY PO Last administered on 09/30/21 08:38; Start 09/30/21 at 09:00 Levothyroxine Sodium (Synthroid) 300 mcg DAILY06 PO Last administered on 09/30/21 05:18; Start 09/30/21 at 06:00 Multi-Ingredient Ointment (Analgesic Warren) 1 constantine TID TP Last administered on 09/30/21 13:38; Start 09/30/21 at 09:00 Ranolazine (Ranexa) 1,000 mg BID PO Last administered on 09/30/21at 08:37; Start 09/30/21 at 09:00 Furosemide (Lasix) 40 mg 1X ONCE IVP Last administered on 09/30/21at 13:37; Start 09/30/21 at 12:45; Stop 09/30/21 at 12:46; Status DC Active Scripts Active Oxycodone Hcl Immed.release (Oxycodone Hcl) 5 Mg Tablet 5 Mg PO PRN Q4HRS PRN 30 Days Reported Bumetanide 2 Mg Tablet 1 Tab PO BID Calcium 500 + Vit D 200 Tablet (Calcium Carbonate/Vitamin D3) 1 Each Tablet 1 Tab PO BID 30 Days Mysoline (Primidone) 50 Mg Tablet 12.5 Mg PO QHS Klor-Con 10 (Potassium Chloride) 10 Meq Tablet.er 1 Tab PO BID 30 Days Hydroxyzine Hcl 25 Mg Tablet 1 Tab PO TID Proventil Hfa Inhaler (Albuterol Sulfate) 6.7 Gm Hfa.aer.ad 1 Puff INH PRN Q4HRS PRN NITROGLYCERIN SubLingual (Nitroglycerin) 0.4 Mg Tab.subl 0.4 Mg SL PRN Q5MIN PRN Pregabalin 75 Mg Capsule 75 Mg PO TID Miralax (Polyethylene Glycol 3350) 17 Gm Powd.pack 1 Packet PO PRN DAILY PRN 2 Days dissolve in water Levemir (Insulin Detemir) 100 Unit/1 Ml Vial 30 Unit SQ DAILY08 Levemir (Insulin Detemir) 100 Unit/1 Ml Vial 15 Unit SQ QHS Isosorbide Mononitrate Er (Isosorbide Mononitrate) 120 Mg Tab.er.24h 1 Tab PO DAILY 30 Days Duoneb 0.5-3(2.5) Mg/3 Ml (Albuterol/Ipratropium) 3 Ml Ampul.neb 3 Ml NEB QID Furosemide 20 Mg Tablet 1 Tab PO DAILY Escitalopram Oxalate 20 Mg Tablet 1 Tab PO DAILY Docusate Sodium 100 Mg Capsule 1 Cap PO BID 7 Days Biofreeze (Menthol) 118 Ml Gel..ml. 1 Constantine TP TID 10 Days Baclofen 20 Mg Tablet 1 Tab PO QHS Ranexa (Ranolazine) 1,000 Mg Tab.er.12h 1 Tab PO BID 30 Days Synthroid (Levothyroxine Sodium) 300 Mcg Tablet 300 Mcg PO DAILY06 Coreg (Carvedilol) 12.5 Mg Tablet 12.5 Mg PO BIDWMEALS Amiodarone Hcl 200 Mg Tablet 1 Tab PO DAILY Montelukast Sodium Tablet (Montelukast Sodium) 10 Mg Tablet 10 Mg PO HS Plavix (Clopidogrel Bisulfate) 75 Mg Tablet 1 Tab PO DAILY 30 Days Protonix (Pantoprazole Sodium) 40 Mg Tablet.dr 1 Tab PO DAILY Allergies: Coded Allergies: garlic (Verified Allergy, Intermediate, 09/07/21) hydrocodone (Verified Allergy, Intermediate, 09/07/21) levofloxacin (Verified Allergy, Intermediate, Rash, 09/07/21) niacin (Verified Allergy, Intermediate, 09/07/21) PSYCHOLOGICAL ROS: No: Hallucinations Eyes: No: Loss of vision HEENT: No: Epistaxis Respiratory: YES: Shortness of breath; No: Hemoptysis Cardiovascular: yes: Chest Pain Gastrointestinal: No: Vomiting, Diarrhea Neurological: No: Seizures Skin: No: Rash General: Alert, Oriented X3 HEENT: Atraumatic Lungs: Clear to auscultation Heart: Regular rate Abdomen: Soft Extremities: Other (1-2+ edema) Psych/Mental Status: Mood NL VITALS Vital Signs Date Time Temp Pulse Resp B/P (MAP) Pulse Ox O2 Delivery O2 Flow Rate FiO2 09/30/21 10:30 97.9 70 18 108/64 (79) 93 Room Air Labs Laboratory Tests Test 09/29/21 18:45 09/29/21 20:19 09/29/21 22:08 09/30/21 00:27 White Blood Count 7.5 x10^3/uL (4.0-11.0) Red Blood Count 3.17 x10^6/uL (4.30-5.70) Hemoglobin 10.7 g/dL (13.0-17.5) Hematocrit 32.4 % (39.0-53.0) Mean Corpuscular Volume 102 fL (79-100) Mean Corpuscular Hemoglobin 34 pg (25-35) Mean Corpuscular Hemoglobin Concent 33 g/dL (31-37) Red Cell Distribution Width 16.7 % (11.5-14.5) Platelet Count 175 x10^3/uL (140-400) Neutrophils (%) (Auto) 66 % (31-73) Lymphocytes (%) (Auto) 22 % (24-48) Monocytes (%) (Auto) 9 % (0-9) Eosinophils (%) (Auto) 2 % (0-3) Basophils (%) (Auto) 1 % (0-3) Neutrophils # (Auto) 5.0 x10^3uL (1.8-7.7) Lymphocytes # (Auto) 1.7 x10^3/uL (1.0-4.8) Monocytes # (Auto) 0.7 x10^3/uL (0.0-1.1) Eosinophils # (Auto) 0.2 x10^3/uL (0.0-0.7) Basophils # (Auto) 0.1 x10^3/uL (0.0-0.2) Prothrombin Time 10.5 SEC (9.4-11.4) Prothromb Time International Ratio 1.0 (0.9-1.1) Activated Partial Thromboplast Time 27 SEC (23-33) D-Dimer (Geovanna) 1.09 mg/L (0.00-0.50) Sodium Level 143 mmol/L (136-145) Potassium Level 4.1 mmol/L (3.5-5.1) Chloride Level 101 mmol/L (98-107) Carbon Dioxide Level 35 mmol/L (21-32) Anion Gap 7 (6-14) Blood Urea Nitrogen 49 mg/dL (8-26) Creatinine 2.9 mg/dL (0.7-1.3) Estimated GFR (Cockcroft-Gault) 21.7 BUN/Creatinine Ratio 17 (6-20) Glucose Level 132 mg/dL (70-99) Calcium Level 8.4 mg/dL (8.5-10.1) Magnesium Level 2.2 mg/dL (1.8-2.4) Total Bilirubin 0.4 mg/dL (0.2-1.0) Aspartate Amino Transf (AST/SGOT) 19 U/L (15-37) Alanine Aminotransferase (ALT/SGPT) 25 U/L (16-63) Alkaline Phosphatase 117 U/L (46-116) Creatine Kinase 62 U/L (39-308) Troponin I High Sensitivity 12 ng/L (4-75) 11 ng/L (4-75) ZR-Zql-O-Type Natriuretic Peptide 3121 pg/mL (0-124) Total Protein 6.7 g/dL (6.4-8.2) Albumin 2.8 g/dL (3.4-5.0) Albumin/Globulin Ratio 0.7 (1.0-1.7) Lipase 220 U/L (73-393) Urine Collection Type Unknown Urine Color Yellow Urine Clarity Clear Urine pH 6.0 Urine Specific [place] 1.015 Urine Protein Neg (NEG-TRACE) Urine Glucose (UA) Neg mg/dL (NEG) Urine Ketones (Stick) Neg mg/dL (NEG) Urine Blood Neg (NEG) Urine Nitrite Neg (NEG) Urine Bilirubin Neg (NEG) Urine Urobilinogen Dipstick 0.2 mg/dL (0.2 mg/dL) Urine Leukocyte Esterase Neg (NEG) Urine RBC 0 /HPF (0-2) Urine WBC 0 /HPF (0-4) Urine Squamous Epithelial Cells None /LPF Urine Bacteria 0 /HPF (0-FEW) Urine Opiates Screen Neg (NEG) Urine Methadone Screen Neg (NEG) Urine Barbiturates Neg (NEG) Urine Phencyclidine Screen Neg (NEG) Urine Amphetamine/Methamphetamine Neg (NEG) Urine Benzodiazepines Screen Neg (NEG) Urine Cocaine Screen Neg (NEG) Urine Cannabinoids Screen Neg (NEG) Urine Ethyl Alcohol Neg (NEG) Glucose (Fingerstick) 126 mg/dL (70-99) Test 09/30/21 01:19 09/30/21 07:52 09/30/21 11:52 Troponin I High Sensitivity 11 ng/L (4-75) Glucose (Fingerstick) 161 mg/dL (70-99) 134 mg/dL (70-99) Assessment/Plan 1. CAD s/p CABG presenting with chest pain with atypical features and most probably musculoskeletal. Myocardial infarction has been ruled out. Plan outpatient ischemic evaluation with primary plater supervisor. 2. Mild acute on chronic systolic heart failure: 2D echo in May 2019 at our facility showed LVEF 25 to 30%. We will obtain records from primary plater supervisor regarding more recent evaluation. We will give him 1 dose of IV Lasix today and continue outpatient Bumex therapy. 3. Ischemic cardiomyopathy s/p AICD implantation without any ICD shock ther apies 4. Paroxysmal atrial fibrillation: Presently atrial paced rhythm. Continue amiodarone for rhythm maintenance. He is currently not on any long-term anticoagulation. We will obtain records from primary plater supervisor office. 5. Hypertension: Controlled 6. Hypothyroidism: Continue levothyroxine 7. Diabetes mellitus type 2: Continue treatment per IM Thank you for your consultation HÉCTOR TRIPATHI MD September 30, 2021 16:09
--- NOTE | 2021-09-30 17:12 | NUR ---
PT DISCHARGED AT APPROX 1700 VIA WHEELCHAIR WITH FAMILY . LEG BAG ATTACHED UROLOGY TO FOLLOW UP. F/U WITH DR MENJIVAR AND CONTINUE WITH HOME HEALTH CARE. Addendum: 10/01/21 at 1554 by MARTHA ARORA RN wrong pt information entered. 109 did not discharge.
[2021-09-30 19:46] VITALS: BP 115/72
[2021-09-30] MEDS: MONTELUKAST 10 MG TABLET. PO SCH (21:05)
[2021-09-30] MEDS: PRIMIDONE 50 MG TABLET PO SCH (21:05)
[2021-09-30] MEDS: BACLOFEN 20 MG TABLET PO SCH (21:07)
[2021-09-30] MEDS: BUMETANIDE 1 MG TABLET PO SCH (21:07)
[2021-09-30 23:17] VITALS: BP 117/70
--- NOTE | 2021-10-01 02:15 | NUR ---
Pt woke up confused stating, "I'm getting up to go home." O2 sat checked at this time and it was 89% on room air. Oxygen of 2 liters per nasal cannula placed at this time.
[2021-10-01] MEDS: IPRATRPIUM/ALBUTEROL 0.5/2.5MG 3 ML NEBU. NEB SCH ×4 (05:29→21:27)
--- NOTE | 2021-10-01 05:31 | PN ---
SUBJECTIVE: The patient was admitted yesterday with chest pain, mostly on the left side radiating to left shoulder with some mild shortness of breath, has had first set of cardiac enzyme, it was normal. He was treated with IV Lasix for acute on chronic congestive heart failure. He had had 2 more sets of cardiac enzyme that ruled out acute myocardial infarction. PHYSICAL EXAMINATION: GENERAL: When I saw him today, he looked well and was clearly in no apparent respiratory distress, pale, but not jaundiced, cyanosed, no lymphadenopathy, no thyromegaly, no jugular venous distention, marked bilateral lower extremity edema. VITAL SIGNS: His heart rate was 70, blood pressure is 108/64, temperature 97.9, respiratory rate was 18 and oxygen saturation was 93% on room air. HEAD, EYES, EARS, NOSE, AND THROAT: Normocephalic, atraumatic. NECK: Supple. HEART: Showed normal first and second heart sounds. No gallop or murmur. CHEST: Shows central trachea, equal bilateral expansion, air entry, vesicular breath sounds with bilateral basal crepitation posteriorly. I could not appreciate any rhonchi. ABDOMEN: Distended, soft, nontender. NEUROLOGIC: He is awake, alert, responding appropriately. All his cranial nerves intact. He moves extremities without difficulty. He ambulates with a walker. He has marked bilateral lower extremity edema. His intake was 540, no output was recorded. LABORATORY DATA: His lab work as of admission showed a white cell count 7.5, hemoglobin 11, hematocrit 32, MCV 102, and platelet count of 175,000. His chemistry showed a serum sodium 143, potassium 4.1, chloride 101, bicarbonate 35, anion gap of 7, BUN 49, creatinine 2.9. Estimated GFR was 21 mL per minute. His glucose 132, calcium was 8.4, magnesium was 2.2. Total bilirubin, AST, ALT normal. Alkaline phosphatase slightly elevated. Beta natriuretic peptide was 3121. Total protein 6.7, albumin 2.8. ASSESSMENT: 1. Chest pain, acute myocardial infarction was ruled out. 2. Acute on chronic congestive heart failure. The patient continued to be fluid overloaded. Other medical problems include: A. Hypertension. B. Hyperlipidemia. C. Hypothyroidism. D. Chronic obstructive pulmonary disease. E. Type 2 diabetes mellitus. PLAN: The patient was seen by the malt roaster who recommended more IV Lasix, so we have ordered another 40 mg of IV Lasix. I will repeat all his labs again tomorrow and hopefully can be discharged back to [facility] tomorrow. THEE DR: Mundo TID: [id number]
[2021-10-01 05:33] VITALS: BP 115/66
[2021-10-01] MEDS: LEVOTHYROXINE 150 MCG TABLET PO SCH (05:42)
[2021-10-01 06:42] LABS: BASO # 0.1 x10^3/uL (0.0-0.2); BASO % 1 % (0-3); EOS # 0.2 x10^3/uL (0.0-0.7); EOS % 3 % (0-3); HEMATOCRIT 30.3 % (39.0-53.0); LYMPH # 1.3 x10^3/uL (1.0-4.8); LYMPH % 24 % (24-48); MEAN CORPUSCULAR HEMOGLOBIN 34 pg (25-35); MEAN CORPUSCULAR HGB CONC 33 g/dL (31-37); MEAN CORPUSCULAR VOLUME 103 fL (79-100); MONO # 0.5 x10^3/uL (0.0-1.1); MONO % 10 % (0-9); NEUT # 3.5 x10^3uL (1.8-7.7); NEUT % 63 % (31-73); PLATELET COUNT 176 x10^3/uL (140-400); RED BLOOD COUNT 2.95 x10^6/uL (4.30-5.70); RED CELL DISTRIBUTION WIDTH 16.7 % (11.5-14.5); WHITE BLOOD COUNT 5.5 x10^3/uL (4.0-11.0)
[2021-10-01 07:32] LABS: ALBUMIN 2.8 g/dL (3.4-5.0); ALBUMIN/GLOBULIN RATIO 0.7 (1.0-1.7); CREATININE 3.5 mg/dL (0.7-1.3); GFR 17.5; POTASSIUM 4.4 mmol/L (3.5-5.1); TOTAL BILIRUBIN 0.5 mg/dL (0.2-1.0); TOTAL PROTEIN 7.1 g/dL (6.4-8.2)
[2021-10-01] MEDS: INSULIN LISPRO 300 UNITS/3 ML VIAL. SQ SCH ×3 (08:00→17:00)
[2021-10-01] MEDS: ISOSORBIDE MONONITRATE ER 30 MG TAB.ER.24H PO SCH (08:19)
[2021-10-01] MEDS: AMIODARONE HCL 200 MG TABLET. PO SCH (08:20)
[2021-10-01] MEDS: PANTOPRAZOLE 40 MG TABLET. PO SCH (08:20)
[2021-10-01] MEDS: hydrOXYzine HCL 25 MG TABLET PO SCH ×3 (08:20→22:05)
[2021-10-01] MEDS: CITALOPRAM 20 MG TABLET. PO SCH (08:20)
[2021-10-01] MEDS: DOCUSATE SODIUM 100 MG CAPSULE PO SCH ×2 (08:21→22:05)
[2021-10-01] MEDS: CARVEDILOL 12.5 MG TABLET PO SCH ×2 (08:21→17:00)
[2021-10-01] MEDS: PREGABALIN 75 MG CAPSULE PO SCH ×3 (08:21→22:06)
[2021-10-01] MEDS: CLOPIDOGREL BISULFATE 75 MG TABLET PO SCH (08:21)
[2021-10-01] MEDS: RANOLAZINE 500 MG TAB.ER.12H PO SCH ×2 (08:22→22:05)
[2021-10-01] MEDS: METHYL SALICYLATE/MENTHOL TOPICAL OINTMENT 57GM TUBE. TP SCH ×3 (08:22→22:09)
[2021-10-01] MEDS: CALCIUM CARB/VIT D3 500/200 TABLET PO SCH ×2 (08:22→22:05)
[2021-10-01] MEDS: INSULIN GLARGINE SYRINGE. SQ SCH ×2 (08:25→22:08)
[2021-10-01] MEDS: BUMETANIDE 1 MG TABLET PO SCH (08:35)
--- NOTE | 2021-10-01 09:20 | NUR ---
Nursing note PT in bed, verbalized no pain or shortness or breath. Morning assessments done, medications administered per doctors orders. PT assisted with meal try. Urinal emptied. PT stated he will like some eggs and RN called to notify the kitchen. PT verbalized no other needs, bed low, call light within reach. Will continue to monitor.
[2021-10-01 11:37] VITALS: BP 118/73
--- NOTE | 2021-10-01 12:17 | NUR ---
Nursing note PT in bed, verbalized no pain or discomfort. PT assessed by doctor and the doctor stated PT will not be discharged today due to changes on lab results. PT verbalized understanding. Bed low, call light within reach.
[2021-10-01 15:07] VITALS: BP 114/69
[2021-10-01 20:12] VITALS: BP 117/71
[2021-10-01] MEDS: BACLOFEN 20 MG TABLET PO SCH (22:05)
[2021-10-01] MEDS: MONTELUKAST 10 MG TABLET. PO SCH (22:05)
[2021-10-01] MEDS: PRIMIDONE 50 MG TABLET PO SCH (22:07)
--- NOTE | 2021-10-02 00:07 | PN ---
DATE: 10/01/2021 SUBJECTIVE: The patient is resting, slightly propped up in his recliner in no apparent respiratory distress. He is awake, alert. On questioning him, denied any complaint. The nursing staff did not voice any concern. Unfortunately, his creatinine has worsened and today creatinine went up to 3.5, and he did receive 40 mg IV Lasix and again this morning, he was continued on his oral Bumex and therefore, I recommended that he should not be discharged today. We will increase his water intake and hold his Bumex and repeat his labs tomorrow and if his creatinine is trending down, he can be discharged back to [facility]. PHYSICAL EXAMINATION: GENERAL: When I saw him this morning, he was somewhat pale, but not jaundiced or cyanosed, no lymphadenopathy, no thyromegaly, no jugular venous distention, but mild bilateral lower extremity edema. VITAL SIGNS: His heart rate was 72, blood pressure was 121/64, his temperature was 97.8, respiratory rate was 18 and oxygen saturation was 97% on room air. HEAD, EYES, EARS, NOSE AND THROAT: Normocephalic, atraumatic. NECK: Supple. HEART: Showed normal first and second heart sounds. No gallop or murmur. CHEST: Clear to auscultation, no crepitation or rhonchi. ABDOMEN: Distended, soft, nontender. NEUROLOGIC: He was grossly intact. His intake over the last 24 hours was incompletely recorded. LABORATORY DATA: As of this morning, his white cell count was 5.5, hemoglobin 10, hematocrit 30, MCV 103 and platelet count of 176,000. His chemistry showed a serum sodium 141, potassium 4.4, chloride 100, bicarbonate 34, anion gap of 7, BUN 57, creatinine was 3.5. Estimated GFR was 17 mL per minute. His glucose was 93, calcium was 9. Total bilirubin, AST, ALT, alkaline phosphatase were normal. Beta natriuretic peptide was 1800, down from 3100. His total protein 7.1, albumin was 2.8. ASSESSMENT: 1. Chest pain, acute myocardial infarction was ruled out. 2. Acute on chronic systolic congestive heart failure, much improved. 3. Acute on chronic kidney injury. His creatinine has risen from 2.9 to 3.5. 4. The patient has multiple medical problems including: A. Hypertension that seems to be well controlled. B. Hyperlipidemia. C. Hypothyroidism. D. Chronic obstructive pulmonary disease. E. Type 2 diabetes mellitus. PLAN: My plan is to discontinue the Bumex for now. Encourage fluid intake and I will repeat his lab work tomorrow and if his serum creatinine is trending down, we can send him back to [facility]. LANEY DR: Mundo TID: [id number]
[2021-10-02] MEDS: LEVOTHYROXINE 150 MCG TABLET PO SCH (04:59)
[2021-10-02] MEDS: IPRATRPIUM/ALBUTEROL 0.5/2.5MG 3 ML NEBU. NEB SCH ×4 (05:38→19:53)
[2021-10-02 05:46] VITALS: BP 124/75
[2021-10-02 07:38] LABS: CALCIUM 8.9 mg/dL (8.5-10.1); CREATININE 3.3 mg/dL (0.7-1.3); GFR 18.7
[2021-10-02] MEDS: INSULIN LISPRO 300 UNITS/3 ML VIAL. SQ SCH ×3 (08:00→17:00)
[2021-10-02] MEDS: INSULIN GLARGINE SYRINGE. SQ SCH (08:00)
[2021-10-02] MEDS: PANTOPRAZOLE 40 MG TABLET. PO SCH (08:19)
[2021-10-02] MEDS: AMIODARONE HCL 200 MG TABLET. PO SCH (08:19)
[2021-10-02] MEDS: CALCIUM CARB/VIT D3 500/200 TABLET PO SCH ×2 (08:20→20:38)
[2021-10-02] MEDS: CITALOPRAM 20 MG TABLET. PO SCH (08:20)
[2021-10-02] MEDS: CLOPIDOGREL BISULFATE 75 MG TABLET PO SCH (08:20)
[2021-10-02] MEDS: ISOSORBIDE MONONITRATE ER 30 MG TAB.ER.24H PO SCH (08:20)
[2021-10-02] MEDS: hydrOXYzine HCL 25 MG TABLET PO SCH ×3 (08:21→20:38)
[2021-10-02] MEDS: CARVEDILOL 12.5 MG TABLET PO SCH ×2 (08:21→17:00)
[2021-10-02] MEDS: DOCUSATE SODIUM 100 MG CAPSULE PO SCH ×3 (08:21→20:59)
[2021-10-02] MEDS: PREGABALIN 75 MG CAPSULE PO SCH ×3 (08:22→20:38)
[2021-10-02] MEDS: RANOLAZINE 500 MG TAB.ER.12H PO SCH ×2 (08:22→20:38)
[2021-10-02] MEDS: METHYL SALICYLATE/MENTHOL TOPICAL OINTMENT 57GM TUBE. TP SCH ×3 (08:22→20:40)
[2021-10-02] MEDS: IV NORMAL SALINE 1,000ML 1,000 ML IV SCH ×2 (10:17→20:40)
--- NOTE | 2021-10-02 10:52 | NUR ---
Nursing note PT in bed, verbalized no pain or shortness of breath. Morning assessments done, medications administered per doctors orders. PT assessed by and the DrChristopher stated PT will be started on IV fluids due to his creatinine levels. IV normal saline started per doctors orders. PT blood sugar assessed and was 46. PT given meal try and 2 cups of orange juice. Blood sugar assessed after 20minutes and was 103. PT verbalized no other needs. Bed low call light within reach. Will continue to monitor.
[2021-10-02 11:43] VITALS: BP 118/58
[2021-10-02 15:00] VITALS: BP 144/84
--- NOTE | 2021-10-02 18:05 | NUR ---
Nursing note PT in bed, verbalized pain but tolerable. Blood glucose assessed and was 65. PT given evening meal with orange juice. PT verbalized no weakness or dizziness. Bed low, call light within reach. PT verbalized no other needs.
[2021-10-02 19:00] VITALS: BP 129/79
--- NOTE | 2021-10-02 20:18 | PN ---
DATE: 10/02/2021 SUBJECTIVE: The patient is resting almost flat in bed, in no apparent distress. On questioning him, he denied any complaint. Nursing staff did not voice any concern. PHYSICAL EXAMINATION: GENERAL: When I examined him, he was pale, but no jaundice, cyanosis or thyromegaly. No jugular venous distention. No limb edema. VITAL SIGNS: His heart rate was 82, blood pressure was 115/62, temperature 97.7, respiratory rate 20, and oxygen saturation was 97% on room air. HEAD, EYES, EARS, NOSE AND THROAT: Normocephalic, atraumatic. NECK: Supple. HEART: Normal first and second heart sounds. No gallop, rub or murmur. CHEST: Clear to auscultation, no crepitation or rhonchi. ABDOMEN: Distended, soft, nontender. NEUROLOGIC: He was awake, alert, responding appropriately. EXTREMITIES: Intact. He moves extremities without difficulty. His intake was 1300, output was 875. LABORATORY DATA: As of this morning, his serum sodium was 142, potassium 4, chloride 102, bicarbonate 33, anion gap of 7, BUN 60, creatinine was 3.3. Estimated GFR was 18.7. Her blood glucose was 63 and calcium was 8.9. ASSESSMENT: 1. Chest pain, acute myocardial infarction was ruled out. 2. Acute on chronic diastolic congestive heart failure, much improved. 3. Acute on chronic kidney injury. His creatinine has risen from 2.9 to 3.5. Today's creatinine is 3.3. 4. Hypoglycemia, likely due to worsening kidney function. I will cut down his Lantus to 10 units. 5. Other medical problems include: A. Hypertension, seems to be well controlled. B. Hyperlipidemia. C. Hypothyroidism. D. Chronic obstructive pulmonary disease. E. Type 2 diabetes mellitus. PLAN: My plan is to continue to hold his Bumex and start him on IV fluid in the form of normal saline at 100 mL per hour. I will cut down his Lantus to 10 units at bedtime given worsening kidney function and hyperglycemia. If kidney function returned back to baseline tomorrow, he can be discharged back to [facility]. LEXY DR: Mundo TID: [id number]
[2021-10-02] MEDS: BACLOFEN 20 MG TABLET PO SCH (20:38)
[2021-10-02] MEDS: MONTELUKAST 10 MG TABLET. PO SCH (20:38)
[2021-10-02] MEDS: PRIMIDONE 50 MG TABLET PO SCH (20:41)
[2021-10-02] MEDS ORDERED: INSULIN GLARGINE SYRINGE. SQ SCH (21:00)
--- NOTE | 2021-10-02 23:16 | NUR ---
Pt is hallucinating. Pt states, "there are bugs in my bed." Staff redirected pt. Pt requested to have his lights turned on.
[2021-10-03] MEDS: IPRATRPIUM/ALBUTEROL 0.5/2.5MG 3 ML NEBU. NEB SCH ×2 (04:58→12:31)
[2021-10-03 05:47] VITALS: BP 122/69
[2021-10-03] MEDS: LEVOTHYROXINE 150 MCG TABLET PO SCH (06:43)
[2021-10-03] MEDS: IV NORMAL SALINE 1,000ML 1,000 ML IV SCH (06:43)
[2021-10-03 07:01] LABS: CALCIUM 9.1 mg/dL (8.5-10.1); CREATININE 2.8 mg/dL (0.7-1.3); GFR 22.6; POTASSIUM 3.8 mmol/L (3.5-5.1)
[2021-10-03] MEDS: INSULIN LISPRO 300 UNITS/3 ML VIAL. SQ SCH ×2 (07:49→12:00)
[2021-10-03] MEDS: RANOLAZINE 500 MG TAB.ER.12H PO SCH (07:56)
[2021-10-03] MEDS: CITALOPRAM 20 MG TABLET. PO SCH (07:56)
[2021-10-03] MEDS: CARVEDILOL 12.5 MG TABLET PO SCH (07:57)
[2021-10-03] MEDS: PREGABALIN 75 MG CAPSULE PO SCH (07:57)
[2021-10-03] MEDS: PANTOPRAZOLE 40 MG TABLET. PO SCH (07:58)
[2021-10-03] MEDS: AMIODARONE HCL 200 MG TABLET. PO SCH (07:58)
[2021-10-03] MEDS: CLOPIDOGREL BISULFATE 75 MG TABLET PO SCH (07:58)
[2021-10-03] MEDS: DOCUSATE SODIUM 100 MG CAPSULE PO SCH (07:58)
[2021-10-03] MEDS: CALCIUM CARB/VIT D3 500/200 TABLET PO SCH (07:58)
[2021-10-03] MEDS: hydrOXYzine HCL 25 MG TABLET PO SCH (07:59)
[2021-10-03] MEDS ORDERED: INSULIN GLARGINE SYRINGE. SQ SCH (08:00)
[2021-10-03] MEDS: ISOSORBIDE MONONITRATE ER 30 MG TAB.ER.24H PO SCH (08:00)
[2021-10-03] MEDS: METHYL SALICYLATE/MENTHOL TOPICAL OINTMENT 57GM TUBE. TP SCH (08:00)
--- NOTE | 2021-10-03 08:13 | PDOC ---
LATA PACKER PATRICK 10/03/21 0812: CARDIO Progress Notes Date & Time Date of Service DATE: 10/03/21 TIME: 08:10 Time of Evaluation 08:10 Subjective Notes No chest pain, palpitations, dizziness, shortness of breath. Does reports cough. Vitals Vitals Vital Signs Date Time Temp Pulse Resp B/P (MAP) Pulse Ox O2 Delivery O2 Flow Rate FiO2 10/03/21 08:00 72 122/69 10/03/21 05:47 97.6 18 95 Room Air 10/01/21 09:40 1.0 Weight Weight [ ] Input and Output I.O. Intake and Output 10/03/21 07:00 Intake Total 1700 ml Output Total 1500 ml Balance 200 ml Intake Oral 1700 ml Output Urine Total 1500 ml Laboratory Labs Laboratory Tests Test 10/01/21 11:58 10/01/21 16:56 10/01/21 21:37 10/02/21 06:45 Glucose (Fingerstick) 165 mg/dL (70-99) 105 mg/dL (70-99) 151 mg/dL (70-99) Sodium Level 142 mmol/L (136-145) Potassium Level 4.0 mmol/L (3.5-5.1) Chloride Level 102 mmol/L (98-107) Carbon Dioxide Level 33 mmol/L (21-32) Anion Gap 7 (6-14) Blood Urea Nitrogen 60 mg/dL (8-26) Creatinine 3.3 mg/dL (0.7-1.3) Estimated GFR (Cockcroft-Gault) 18.7 Glucose Level 63 mg/dL (70-99) Calcium Level 8.9 mg/dL (8.5-10.1) Test 10/02/21 08:43 10/02/21 09:21 10/02/21 12:11 10/02/21 16:52 Glucose (Fingerstick) 46 mg/dL (70-99) 103 mg/dL (70-99) 195 mg/dL (70-99) 64 mg/dL (70-99) Test 10/02/21 20:08 10/03/21 06:18 10/03/21 07:24 10/03/21 07:56 Glucose (Fingerstick) 156 mg/dL (70-99) 50 mg/dL (70-99) 84 mg/dL (70-99) Sodium Level 142 mmol/L (136-145) Potassium Level 3.8 mmol/L (3.5-5.1) Chloride Level 103 mmol/L (98-107) Carbon Dioxide Level 32 mmol/L (21-32) Anion Gap 7 (6-14) Blood Urea Nitrogen 55 mg/dL (8-26) Creatinine 2.8 mg/dL (0.7-1.3) Estimated GFR (Cockcroft-Gault) 22.6 Glucose Level 53 mg/dL (70-99) Calcium Level 9.1 mg/dL (8.5-10.1) Physical Exams Chest: Symmetric Lungs: Other (diminished ) Heart: RRR (a-paced ) Abdomen: Soft N/T Extremities: Other (1+ bilateral LE edema ) Neurology: alert, follow commands Assessment Assessment 1. CAD s/p CABG presenting with chest pain with atypical features and most probably musculoskeletal. Myocardial infarction has been ruled out. Plan outpatient ischemic evaluation with primary clinical haematologist, Dr. Amin 2. Mild acute on chronic systolic heart failure: 2D echo in May 2019 at our facility showed LVEF 25 to 30%. s/p IV Lasix. Resume oral Bumex upon discharge 3. Ischemic cardiomyopathy s/p AICD implantation without any ICD shock therapies 4. Paroxysmal atrial fibrillation: Presently atrial paced rhythm. Continue amiodarone for rhythm maintenance. He is currently not on any long-term anticoagulation- no OSH records obtained. Patient reports h/o bleeding. 5. Hypertension: Controlled 6. Hypothyroidism: Continue levothyroxine 7. Diabetes mellitus type 2: Continue treatment per IM 8. JANETTE on CKD; improved s/p IVFs HÉCTOR TRIPATHI MD 10/03/211817: CARDIO Progress Notes Assessment Assessment Patient seen and examined. Agree with HELP DESK SUPPORT SPECIALIST's assessment and plan. LATA PACKER APRN October 03, 2021 08:12 HÉCTOR TRIPATHI MD October 03, 2021 18:18
[2021-10-03 10:50] VITALS: BP 115/70
--- NOTE | 2021-10-03 11:25 | DISCH ---
DISCHARGE ORDERS DISCHARGE DATE: October 03, 2021 FINAL DIAGNOSIS A/C SYSTOLIC chf A/C Kidney Injury CONDITION AT DISCHARGE: Stable Code Status: Full SNF STAY <30 DAYS: Yes POST DISCHARGE ORDERS: ACTIVITY ORDERS: Activity as tolerated WEIGHT BEARING STATUS: As tolerated DIET AFTER DISCHARGE: Cardiac WOUND/INCISION CARE: Keep wound/cast CDI, Change dressing CHECKS AFTER DISCHARGE: CHECKS AFTER DISCHARGE: Check blood press - daily, Check blood sugar, ac/hs, Check your Temp as needed, Weigh Yourself Daily TREATMENT/EQUIPMENT ORDERS: ADAPTIVE EQUIPMENT NEEDED: Cane RESPIRATORY EQUIPMENT: Oxygen DISCHARGE MEDICATIONS: Home Meds Active Scripts Oxycodone Hcl (OXYCODONE HCL IMMED.RELEASE ) 5 Mg Tablet, 5 MG PO PRN Q4HRS PRN for PAIN for 30 Days, #180 TAB Prov:PAULINO MOHAN MD 05/16/21 Reported Medications Bumetanide (BUMETANIDE) 2 Mg Tablet, 1 TAB PO BID for CHF, #60 TAB 5 Refills 09/30/21 Calcium Carbonate/Vitamin D3 (CALCIUM 500 + VIT D 200 TABLET) 1 Each Tablet, 1 TAB PO BID for SUPPLEMENT for 30 Days, #60 TAB 0 Refills 09/30/21 Primidone (MYSOLINE) 50 Mg Tablet, 12.5 MG PO QHS for TREMORS, TAB 22 Potassium Chloride (KLOR-CON 10) 10 Meq Tablet.er, 1 TAB PO BID for SUPPLEMENT for 30 Days, #60 TAB 0 Refills 09/30/21 Hydroxyzine Hcl (HYDROXYZINE HCL) 25 Mg Tablet, 1 TAB PO TID for ITCHING, #30 TAB 09/30/21 Albuterol Sulfate (PROVENTIL HFA INHALER) 6.7 Gm Hfa.aer.ad, 1 PUFF INH PRN Q4HRS PRN for FOR ASTHMA, EACH 0 Refills 05/14/21 Nitroglycerin (NITROGLYCERIN SubLingual) 0.4 Mg Tab.subl, 0.4 MG SL PRN Q5MIN PRN for CHEST PAIN, ML 05/14/21 Pregabalin (Pregabalin) 75 Mg Capsule, 75 MG PO TID for pain, CAP 05/14/21 Polyethylene Glycol 3350 (MIRALAX) 17 Gm Powd.pack, 1 PACKET PO PRN DAILY PRN for CONSTIPATION for 2 Days, PACKET 0 Refills dissolve in water 05/14/21 Insulin Detemir (LEVEMIR) 100 Unit/1 Ml Vial, 30 UNIT SQ DAILY08 for DM, EACH 05/14/21 Insulin Detemir (LEVEMIR) 100 Unit/1 Ml Vial, 15 UNIT SQ QHS for DM, EACH 05/14/21 Isosorbide Mononitrate (ISOSORBIDE MONONITRATE ER) 120 Mg Tab.er.24h, 1 TAB PO DAILY for hypertension for 30 Days, #30 TAB 0 Refills 05/14/21 Ipratropium/Albuterol Sulfate (DUONEB 0.5-3(2.5) MG/3 ML) 3 Ml Ampul.neb, 3 ML NEB QID for wheeze, EACH 05/14/21 Escitalopram Oxalate (ESCITALOPRAM OXALATE) 20 Mg Tablet, 1 TAB PO DAILY for depression, #30 TAB 5 Refills 05/14/21 Docusate Sodium (DOCUSATE SODIUM) 100 Mg Capsule, 1 CAP PO BID for constipation for 7 Days, #14 CAP 0 Refills 05/14/21 Menthol (BIOFREEZE) 118 Ml Gel..ml., 1 SAM TP TID for back pain for 10 Days, #118 ML 0 Refills 05/14/21 Baclofen (BACLOFEN) 20 Mg Tablet, 1 TAB PO QHS for ., #90 TAB 2 Refills 05/14/21 Ranolazine (RANEXA) 1,000 Mg Tab.er.12h, 1 TAB PO BID for A-FIB for 30 Days, #60 TAB 0 Refills 05/28/19 Levothyroxine Sodium (SYNTHROID) 300 Mcg Tablet, 300 MCG PO DAILY06 for THYROID SUPPLEMENT, #30 TAB 0 Refills 05/28/19 Carvedilol (COREG ) 12.5 Mg Tablet, 12.5 MG PO BIDWMEALS for CARDIAC, TAB 05/28/19 Amiodarone Hcl (AMIODARONE HCL) 200 Mg Tablet, 1 TAB PO DAILY for CHF, #90 TAB 1 Refill 05/28/19 Montelukast Sodium (MONTELUKAST SODIUM TABLET ) 10 Mg Tablet, 10 MG PO HS for FOR ASTHMA, TAB 0 Refills 05/28/19 Clopidogrel Bisulfate (PLAVIX) 75 Mg Tablet, 1 TAB PO DAILY for INHIBITOR POST CABG for 30 Days, #30 TAB 0 Refills 05/28/19 Pantoprazole Sodium (PROTONIX) 40 Mg Tablet.dr, 1 TAB PO DAILY for GERD, #30 TAB 5 Refills 05/28/19 Discontinued Reported Medications Furosemide (FUROSEMIDE) 20 Mg Tablet, 1 TAB PO DAILY for hypertension, #90 TAB 1 Refill 05/14/21 PAULINO MOHAN MD October 03, 2021 11:24
--- NOTE | 2021-10-03 13:25 | NUR ---
PATIENT IS DISCHARGED BACK TO [facility]. REPORT GIVEN TO STAFF NURSE. PATIENT LEFT ROOM 109 VIA W/C ACCOMP BY .
== END 2021-10-03 13:25 | DRG 291 ==
LOC: ER 18:35 → 1 SOUTH 23:02
PROVIDERS: ADMIT Internal Medicine; ATTEND Internal Medicine
DX: I13.0 Hypertensive heart and chronic kidney disease with heart failure and stage 1 through stage 4 chronic kidney disease, or unspecified chronic kidney disease (principal); I50.43 Acute on chronic combined systolic (congestive) and diastolic (congestive) heart failure; N17.9 Acute kidney failure, unspecified; D64.9 Anemia, unspecified; E11.22 Type 2 diabetes mellitus with diabetic chronic kidney disease; E11.649 Type 2 diabetes mellitus with hypoglycemia without coma; E78.00 Pure hypercholesterolemia, unspecified; E78.5 Hyperlipidemia, unspecified; E89.0 Postprocedural hypothyroidism; F17.210 Nicotine dependence, cigarettes, uncomplicated; I25.10 Atherosclerotic heart disease of native coronary artery without angina pectoris; I25.2 Old myocardial infarction; I25.5 Ischemic cardiomyopathy; I48.0 Paroxysmal atrial fibrillation; J44.9 Chronic obstructive pulmonary disease, unspecified; N18.9 Chronic kidney disease, unspecified; N40.0 Benign prostatic hyperplasia without lower urinary tract symptoms; Z63.4 Disappearance and death of family member; Z82.49 Family history of ischemic heart disease and other diseases of the circulatory system; Z86.73 Personal history of transient ischemic attack (TIA), and cerebral infarction without residual deficits; Z86.74 Personal history of sudden cardiac arrest; Z87.442 Personal history of urinary calculi; Z95.1 Presence of aortocoronary bypass graft; Z95.5 Presence of coronary angioplasty implant and graft; Z95.810 Presence of automatic (implantable) cardiac defibrillator; F41.9 Anxiety disorder, unspecified; G47.33 Obstructive sleep apnea (adult) (pediatric); M19.90 Unspecified osteoarthritis, unspecified site; Z88.8 Allergy status to other drugs, medicaments and biological substances; Z91.018 Allergy to other foods
CPT/HCPCS: 36415; 71045; 80048; 80053; 80307; 81001; 82550; 82947; 83690; 83735; 83880; 84484; 85025; 85379; 85610; 85730; 93005; 93970; 94640; 94760; 96374; 96375; J1815; J1940; J2270; J2405; 97110; 97116; 97530; 99285-25; J7030

== ENCOUNTER 2021-10-23 15:24 | Emergency (ER) | payer OTHER, MEDICAID ==
[~2021-10-23] VITALS: Ht 182.9 cm; Wt 142.3 kg
[~2021-10-23 15:24] MED LIST changes: +CALC-157 PO; +HYDR25TA PO; +POTA-112 PO; +PRIM50TA24 PO
--- NOTE | 2021-10-23 18:02 | RAD ---
CT HEAD AND C-SPINE WO History: Fall from standing. Pain. Comparison: CT head 04/24/2021, 01/07/2022 Technique: Noncontrast CT of the head and cervical spine. Findings: CT HEAD: There is no evidence for intracranial mass or hemorrhage. There is no hydrocephalus or midline shift. No abnormal extra-axial fluid collections are present. No evidence of acute territorial infarction. Moderate diffuse prominence of the ventricles and sulci related involutional change. Hypoattenuation the periventricular deep white matter consistent with ch ronic microvascular ischemic change. The visualized paranasal sinuses and mastoid air cells are clear. The skull and scalp are within normal limits. CT CERVICAL SPINE: There is no evidence for fracture in the cervical spine. Alignment is normal. Degenerative disc space narrowing at C5-C6 and C6-C7 with uncovertebral hypertrophy. No destructive osseous lesions are seen. Partially visualized left chest pacemaker leads. Bilateral carotid bulb calcifications. Impression: 1. No acute intracranial findings. Involutional and chronic microvascular ischemic changes of the br ain. 2. No acute osseous abnormality in the cervical spine. ------- Exposure: One or more of the following individualized dose reduction techniques were utilized for thi s examination: 1. Automated exposure control 2. Adjustment of the mA and/or kV according to patient size 3. Use of iterative reconstruction technique. Electronically signed by: Holland Rey MD (10/23/2021 6:00 PM) [id number]
--- NOTE | 2021-10-23 18:25 | PHYS DOC ---
Past History Past Medical History: Anxiety, Arthritis, CHF, COPD, Diabetes, High Cholesterol, Hypertension, Hypothyroid, Kidney Stones, [place], Other Additional Past Medical Histor: radial dermatitis(back pain), mi '08 (EMRE REYNA MD) Past Surgical History: Other Additional Past Surgical Histo: cardiac stents,l4-l5,debrideback,partial thyroidectomy,left arm/infiltratra (EMRE REYNA MD) Alcohol Use: None Drug Use: None (EMRE REYNA MD) Adult General Chief Complaint Chief Complaint: MECHANICAL FALL HPI HPI Patient is a 66year old male who presents with complaint of right-sided hip and back pain. The patient had a reported fall at his shelter earlier today after he accidentally fell while using his walker and hit the right side of his chest and back on a wooden plank. The patient states that he was able to be helped up after falling but notes that he has been having worsening pain throughout the day along his right rib cage and towards his back. The patient also scraped his right knee and elbow. He states however that his area of maximal pain is along the right side of his rib cage. States that it worsens when he takes a deep breath and with movement. Has not taking medications for symptoms at this time. Due to his worsening symptoms EMS was called by staff at his shelter to bring patient to the emergency department for further evaluation. (EMRE REYNA MD) Review of Systems Review of Systems Constitutional: Denies fever or chills [] Eyes: Denies change in visual acuity, redness, or eye pain [] HENT: Denies nasal congestion or sore throat [] Respiratory: Denies cough or shortness of breath [] Cardiovascular: Denies substernal chest pain [] GI: Denies abdominal pain, nausea, vomiting, bloody stools or diarrhea [] : Denies dysuria or hematuria [] Musculoskeletal: Right-sided rib pain, back pain [] Integument: Abrasions, denies rash [] Neurologic: Denies headache, focal weakness or sensory changes [] All other systems were reviewed and found to be within normal limits, except as documented in this note. (EMRE REYNA MD) Current Medications Current Medications Current Medications Medications (Trade) Dose Ordered Sig/Levon Start Time Stop Time Status Last Admin Dose Admin Fentanyl Citrate (Fentanyl 2ml Vial) 50 mcg PRN Q15MIN PRN 10/23/21 16:45 10/24/21 16:44 10/23/21 17:18 50 MCG (EMRE REYNA MD) Allergies Allergies Allergies Coded Allergies Type Severity Reaction Last Updated Verified garlic Allergy Intermediate 09/07/21 Yes hydrocodone Allergy Intermediate 09/07/21 Yes levofloxacin Allergy Intermediate Rash 09/07/21 Yes niacin Allergy Intermediate 09/07/21 Yes (EMRE REYNA MD) Physical Exam Physical Exam Constitutional: Alert, afebrile, appears in moderate discomfort. [] HENT: Normocephalic, atraumatic, bilateral external ears normal, oropharynx moist, no oral exudates, nose normal. [] Eyes: PERRLA, EOMI, conjunctiva normal, no discharge. [] Neck: Normal range of motion, no tenderness, supple, no stridor. [] Cardiovascular:Heart rate regular rhythm, no murmur [] Lungs & Thorax: Bilateral breath sounds clear to auscultation, tenderness to palpation along the right lateral rib cage at the mid axillary line, no obvious swelling or ecchymosis [] Abdomen: Bowel sounds normal, soft, no tenderness, no masses, no pulsatile masses. [] Skin: Warm, dry, no erythema, no rash. [] Back: No tenderness, no CVA tenderness. [] Extremities: No tenderness, no cyanosis, no clubbing, ROM intact, abrasion to anterior right knee, abrasion to posterior right elbow 1+ edema in the bilateral lower extremities. [] Neurologic: Alert and oriented X 3, normal motor function, normal sensory function, no focal deficits noted. [] (EMRE REYNA MD) Current Patient Data Vital Signs Vital Signs Date Time Temp Pulse Resp B/P (MAP) Pulse Ox O2 Delivery O2 Flow Rate FiO2 10/23/21 17:18 22 95 10/23/21 15:50 98.7 70 115/70 (85) Room Air (EMRE REYNA MD) EKG EKG Not performed [] (EMRE REYNA MD) Radiology/Procedures Radiology/Procedures [address] [address] IMAGING REPORT Signed PATIENT: MELISSA DIAZ ACCOUNT: [id number] : 1955 LOCATION: ER AGE: 66 SEX: M EXAM STATUS: REG ER ORD. PHYSICIAN: EMRE REYNA MD REASON: Fall from standing PROCEDURE: CT HEAD AND CERVICAL SPINE WO CT HEAD AND C-SPINE WO History: Fall from standing. Pain. Comparison: CT head 04/24/2021, 01/07/2022 Technique: Noncontrast CT of the head and cervical spine. Findings: CT HEAD: There is no evidence for intracranial mass or hemorrhage. There is no hydrocephalus or midline shift. No abnormal extra-axial fluid collections are present. No evidence of acute territorial infarction. Moderate diffuse prominence of the ventricles and sulci related involutional change. Hypoattenuation the periventri cular deep white matter consistent with chronic microvascular ischemic change. The visualized paranasal sinuses and mastoid air cells are clear. The skull and scalp are within normal limits. CT CERVICAL SPINE: There is no evidence for fracture in the cervical spine. Alignment is normal. Degenerative disc space narrowing at C5-C6 and C6-C7 with uncovertebral hypertrophy. No destructive osseous lesions are seen. Partially visualized left chest pacemaker leads. Bilateral carotid bulb calcifications. Impression: 1. No acute intracranial findings. Involutional and chronic microvascular ischemic changes of the brain. 2. No acute osseous abnormality in the cervical spine. ------- Exposure: One or more of the following individualized dose reduction techniques were utilized for this examination: 1. Automated exposure control 2. Adjustment of the mA and/or kV according to patient size 3. Use of iterative reconstruction technique. Electronically signed by: Holland Grigsby MD (10/23/2021 6:00 PM) [id number] DICTATED AND SIGNED BY: HOLLAND GRIGSBY MD DATE: 10/23/211755 CC: EMRE REYNA MD; PCP,NO ~ [] (EMRE REYNA MD) Radiology/[place] [address] IMAGING REPORT Signed PATIENT: MELISSA IDAZ ACCOUNT: [id number] : 1955 LOCATION: ER AGE: 66 SEX: M EXAM STATUS: REG ER ORD. PHYSICIAN: EMRE REYNA MD REASON: Fall from standing, right sided rib and abdominal pain PROCEDURE: CT CHEST ABDOMEN PELVIS WO CT CHEST_ABDOMEN_ AND PELVIS WITHOUT CONTRAST History: Fall. Pain. Right-sided rib pain. Abdominal pain. Technique: CT of the chest, abdomen and pelvis were performed with intravenous contrast. Coronal and sagittal reconstructions were performed. CT thoracic and lumbar spine was obtained. Coronal and sagittal reconstructions were performed. Exposure: One or more of the following individualized dose reduction techniques were utilized for this examination: 1. Automated exposure control 2. Adjustment of the mA and/or kV according to patient size 3. Use of iterative reconstruction technique. Comparison: April 24, 2021 Findings: Chest: No pathologic lymphadenopathy. Prior median sternotomy. Coronary artery calcifications. Left-sided pacemaker. Moderate atheromatous plaque within the aorta. Cardiomegaly. Minimal right pneumothorax. Tiny right hemothorax. Scattered linear atelectasis most prominent within the bilateral lower lobes. Prior granulomatous disease within the chest. Abdomen and pelvis: Unremarkable noncontrast appearance of the liver, spleen, adrenal glands, pancreas and gallbladder. No biliary ductal dilatation. No renal calculus. No hydronephrosis. Bilateral perinephric stranding, likely related to chronic renal disease. Normal appearance the urinary bladder. The prostate is enlarged measures 5.2 x 4.9 cm. Large colonic stool burden. Normal appendix. No evidence of bowel obstruction. No pathologic lymphadenopathy. No ascites. Moderate atheromatous plaque throughout the nonaneurysmal abdominal aorta and branch vessels. Bones: Acute right lateral sixth and seventh rib fracture nondisplaced. Acute nondisplaced right posterior sixth, seventh and eighth rib fractures. Right posterior upper back subcutaneous contusion. Thoracic spine CT: Normal vertebral body alignment. No acute fracture. DISH related changes of the thoracic spine. Mild chronic T2 superior endplate compression deformity, unchanged. No high-grade canal or neuroforaminal narrowing. Lumbar spine CT: Normal vertebral body height and alignment. No acute fracture. Mild degenerative disc changes. Mild right L4-5 neuroforaminal narrowing. Mild L2-L3 canal narrowing. Impression: Chest CT: 1. Acute right lateral and posterior rib fractures, as described. 2. Tiny right pneumothorax. 3. Tiny right hemothorax. Abdomen and pelvis CT: 1. No acute abdominal or pelvic pathology. 2. Large colonic stool burden. Thoracolumbar spine CT: 1. No acute fracture or subluxation of the thoracolumbar spine. Electronically signed by: Ortiz Samuel DO (10/23/2021 6:57 PM) [facility] DICTATED AND SIGNED BY: ORTIZ SAMUEL DO DATE: 10/23/211839 CC: POP HUERTA MD; EMRE REYNA MD; PCP,NO ~ (POP HUERTA MD) Heart Score C/O Chest Pain: No Risk Factors: Risk Factors: DM, Current or recent (<one month) smoker, HTN, HLP, family history of CAD, obesity. Risk Scores: Risk Factors: DM, Current or recent (<one month) smoker, HTN, HLP, family hi story of CAD, obesity. (EMRE REYNA MD) C/O Chest Pain: N/A (POP HUERTA MD) Course & Med Decision Making Course & Med Decision Making Pertinent Labs and Imaging studies reviewed. (See chart for details) CT imaging and blood work ordered in the emergency department. Awaiting results [] (EMRE REYNA MD) Course & Med Decision Making Accepted patient care at shift change. Patient has multiple rib fractures with a small hemopneumothorax. Will transfer to [place] for observation for pulmonary toilet and pulmonary consult. Discussed patient with surgeon, Dr. Blandon, and hospitalist, Dr. Fajardo (POP HUERTA MD) Dragon Disclaimer Dragon Disclaimer This electronic medical record was generated, in whole or in part, using a voice recognition dictation system. (EMRE REYNA MD) Departure Departure: Impression: Primary Impression: Fall Additional Impressions: Knee abrasion Traumatic closed fracture of multiple ribs of right side with minimal displacement Disposition: 02 [facility] Condition: STABLE Referrals: PCP,NO (PCP) Problem Qualifiers Primary Impression: Fall Encounter type: initial encounter Qualified Codes: W19.XXXA - Unspecified fall, initial encounter Additional Impressions: Knee abrasion Encounter type: initial encounter Laterality: right Qualified Codes: S80.211A - Abrasion, right knee, initial encounter EMRE REYNA MD October 23, 2021 18:24 POP HUERTA MD October 23, 2021 19:49
--- NOTE | 2021-10-23 19:00 | RAD ---
CT THORACIC SPINE RECONSTRUCT, CT LUMBAR SPINE RECONSTRUCTION History: Fall. Pain. Right-sided rib pain. Abdominal pain. Technique: CT of the chest, abdomen and pelvis were performed with intravenous contrast. Coronal and sagittal reconstructions were performed. CT thoracic and lumbar spine was obtained. Coronal and sagittal reconstructions were performed. Exposure: One or more of the following individualized dose reduction techniques were utilized for thi s examination: 1. Automated exposure control 2. Adjustment of the mA and/or kV according to patient size 3. Use of iterative reconstruction technique. Comparison: April 24, 2021 Findings: Chest: No pathologic lymphadenopathy. Prior median sternotomy. Coronary artery calcifications. Left-s ided pacemaker. Moderate atheromatous plaque within the aorta. Cardiomegaly. Minimal right pneumothorax. Tiny right hemothorax. Scattered linear atelectasis most prominent within the bilateral lower lobes. Prior granulomatous disease within the chest. Abdomen and pelvis: Unremarkable noncontrast appearance of the liver, spleen, adrenal glands, pancrea s and gallbladder. No biliary ductal dilatation. No renal calculus. No hydronephrosis. Bilateral siddhartha nephric stranding, likely related to chronic renal disease. Normal appearance the urinary bladder. Th e prostate is enlarged measures 5.2 x 4.9 cm. Large colonic stool burden. Normal appendix. No evidence of bowel obstruction. No pathologic lymphade nopathy. No ascites. Moderate atheromatous plaque throughout the nonaneurysmal abdominal aorta and br anch vessels. Bones: Acute right lateral sixth and seventh rib fracture nondisplaced. Acute nondisplaced right post erior sixth, seventh and eighth rib fractures. Right posterior upper back subcutaneous contusion. Thoracic spine CT: Normal vertebral body alignment. No acute fracture. DISH related changes of the thoracic spine. Mild chronic T2 superior endplate compression deformity, unchanged. No high-grade canal or neuroforaminal narrowing. Lumbar spine CT: Normal vertebral body height and alignment. No acute fracture. Mild degenerative disc changes. Mild r ight L4-5 neuroforaminal narrowing. Mild L2-L3 canal narrowing. Impression: Chest CT: 1. Acute right lateral and posterior rib fractures, as described. 2. Tiny right pneumothorax. 3. Tiny right hemothorax. Abdomen and pelvis CT: 1. No acute abdominal or pelvic pathology. 2. Large colonic stool burden. Thoracolumbar spine CT: 1. No acute fracture or subluxation of the thoracolumbar spine. Electronically signed by: Ortiz Samuel DO (10/23/2021 6:58 PM) [facility]
[2021-10-23 19:15] LABS: BASO # 0.1 x10^3/uL (0.0-0.2); BASO % 1 % (0-3); EOS # 0.2 x10^3/uL (0.0-0.7); EOS % 2 % (0-3); HEMATOCRIT 31.8 % (39.0-53.0); HEMOGLOBIN 10.6 g/dL (13.0-17.5); LYMPH # 1.1 x10^3/uL (1.0-4.8); LYMPH % 13 % (24-48); MEAN CORPUSCULAR HEMOGLOBIN 33 pg (25-35); MEAN CORPUSCULAR HGB CONC 33 g/dL (31-37); MEAN CORPUSCULAR VOLUME 100 fL (79-100); MONO # 0.8 x10^3/uL (0.0-1.1); MONO % 9 % (0-9); NEUT # 6.4 x10^3uL (1.8-7.7); NEUT % 75 % (31-73); PLATELET COUNT 172 x10^3/uL (140-400); RED BLOOD COUNT 3.18 x10^6/uL (4.30-5.70); RED CELL DISTRIBUTION WIDTH 16.2 % (11.5-14.5); WHITE BLOOD COUNT 8.6 x10^3/uL (4.0-11.0)
[2021-10-23 19:16] LABS: CREATININE 2.8 mg/dL (0.7-1.3); GFR 22.6
[2021-10-23 19:21] LABS: BACTERIA,URINE 0 /HPF (0-FEW); CLARITY,URINE CLEAR; COLOR,URINE YELLOW; GLUCOSE,URINE NEG (NEG); NITRITE,URINE NEG (NEG); RBC,URINE 0 /HPF (0-2); UROBILINOGEN,URINE 0.2 mg/dL (0.2 mg/dL); WBC,URINE 0 /HPF (0-4)
[2021-10-23 19:22] LABS: ALBUMIN 2.9 g/dL (3.4-5.0); ALBUMIN/GLOBULIN RATIO 0.7 (1.0-1.7); TOTAL BILIRUBIN 0.5 mg/dL (0.2-1.0); TOTAL PROTEIN 7.1 g/dL (6.4-8.2)
[2021-10-23] MEDS ORDERED: MORPHINE SULFATE 4 MG/ML DISP.SYRIN. IV ONE (19:45)
[2021-10-23 21:54] VITALS: BP 136/65
== END 2021-10-23 22:15 | disposition short-term general hospital (02) ==
LOC: ER 15:24
DX: S22.41XA Multiple fractures of ribs, right side, initial encounter for closed fracture (principal); S80.211A Abrasion, right knee, initial encounter; S50.311A Abrasion of right elbow, initial encounter; F41.9 Anxiety disorder, unspecified; M19.90 Unspecified osteoarthritis, unspecified site; I11.0 Hypertensive heart disease with heart failure; I50.9 Heart failure, unspecified; J44.9 Chronic obstructive pulmonary disease, unspecified; E11.9 Type 2 diabetes mellitus without complications; E78.00 Pure hypercholesterolemia, unspecified; E03.9 Hypothyroidism, unspecified; I25.2 Old myocardial infarction; Z87.442 Personal history of urinary calculi; Z20.822 Contact with and (suspected) exposure to COVID-19; W18.39XA Other fall on same level, initial encounter; Y93.89 Activity, other specified; Y92.128 Other place in nursing home as the place of occurrence of the external cause; Y99.8 Other external cause status
CPT/HCPCS: 36415; 70450; 71250; 72125; 74176; 76376; 80053; 81001; 82947; 85025; 85610; 85730; 87426; 96374; 96375; 96376; 99285; C9803; J2270; J3010; U0003